=== PATIENT | male | born 1950 | race Caucasian/White ===

== ENCOUNTER 2021-10-05 08:15 | Outpatient (REF) | payer MEDICARE, MEDICAID, SELFPAY ==
[2021-10-05 08:48] LABS: MANUAL DIFF FLAG NO
[2021-10-05 10:11] LABS: Basophils Percent Auto 0.4 % (0-2); Eosinophils Absolute Auto 0.3 X10*3/uL (0.0-0.4); Eosinophils Percent Auto 6.7 % (0-4); Imm Gran Abs Auto 0.02 X10*3/uL (0.00-0.03); Imm Gran Pct Auto 0.4 % (0.0-0.4); Lymphocytes Absolute Auto 0.9 X10*3/uL (1.2-4.9); Lymphocytes Percent Auto 19.8 % (20-40); Mean Corpuscular Hemoglobin 32.5 pg (27.0-33.0); Mean Corpuscular Volume 91.6 fL (80.0-98.0); Monocytes Absolute Auto 0.4 X10*3/uL (0.1-1.2); Monocytes Percent Auto 8.5 % (2-11); Neutrophils Percent Auto 64.2 % (45-73); Platelet Count 119 X10*3/uL (160-400); Red Cell Distribution Width 12.3 % (11.0-16.0); White Blood Count 4.6 X10*3/uL (4.8-10.8)
[2021-10-05 10:30] LABS: Estimated Average Glucose 114 mg/dL; Hemoglobin A1c % 5.6 %
[2021-10-05 10:37] LABS: Albumin Level 3.7 g/dL (3.5-5.0); Alkaline Phosphatase 61 U/L (39-117); Anion Gap 9 (12-20); Bilirubin Direct 0.7 mg/dL (0.0-0.5); Bilirubin Total 2.1 mg/dL (0.0-1.0); Blood Urea Nitrogen 12 mg/dL (9-16); Calcium 8.9 mg/dL (8.4-10.2); Carbon Dioxide 31 mmol/L (22-29); Chloride 104 mmol/L (96-108); Cholesterol 134 mg/dL; Estimated Glomerular Filt Rate > 60; Glucose Fasting 123 mg/dL (60-99); HDL Cholesterol 38 mg/dL; LDL Cholesterol Calculated 75 mg/dl; Potassium 4.3 mmol/L (3.3-5.1); Sodium 140 mmol/L (135-145); Triglycerides 105 mg/dL
[2021-10-05 10:53] LABS: HBS Num1 0.61 mIU/mL (0-7.99); HBc Num1 0.06 S/CO (0.00-0.79); HBsAGNum1 0.22 S/CO (0.00-0.99); Hepatitis B Core Antibody Nonreactive (Nonreactive); Hepatitis B Surface Antigen Negative (Negative); ~HepC Num1 0.12 S/CO (0.00-0.79); ~Hepatitis B Surface Antibody NONREACTIVE (Nonreactive); ~Hepatitis C Antibody Nonreactive (Nonreactive)
[2021-10-06 03:51] LABS: Hepatitis A Antibody IgM 0.48 Index (0-0.79); ~Hepatitis A Antibody IgM Nonreactive (Nonreactive)
[2021-10-29 15:11] LABS: Hemoglobin 13.5 g/dl (14.0-18.0); Mean Corpuscular HGB Conc 35.5 g/dl (31.0-36.0); Mean Platelet Volume 10.4 fL (9.4-12.4); Red Blood Count 4.15 X10*6/uL (4.60-5.80)
[2021-10-29 15:12] LABS: Alanine Aminotransferase 18 U/L (0-40); Aspartate Amino Transferase 23 U/L (5-37); Prostate Specific Antigen Scr 0.14 ng/mL (<0.05-4.0)
== END 2021-10-05 08:16 | disposition home or self-care (01) ==
LOC: HO.LAB 08:15
PROVIDERS: PCP Nurse Practitioner Family; Visit Provider Nurse Practitioner Family
DX: I10 Essential (primary) hypertension (principal); E11.9 Type 2 diabetes mellitus without complications; K76.9 Liver disease, unspecified; E78.00 Pure hypercholesterolemia, unspecified; Z76.89 Persons encountering health services in other specified circumstances; Z12.5 Encounter for screening for malignant neoplasm of prostate
CPT/HCPCS: 36415; 80053; 80061; 80076; 82248; 83036; 84153; 85025; 86704; 86706; 86709; 86803; 87340

== ENCOUNTER 2021-11-17 14:22 | Outpatient (REF) | payer MEDICARE, MEDICAID, SELFPAY ==
[2021-11-17 15:32] LABS: Influenza A PCR NEGATIVE (Negative); Influenza B PCR NEGATIVE (Negative); Resp Syncy Virus RNA Qual PCR NEGATIVE (Negative); SARS COV2 PCR INHOUSE POSITIVE (Negative)
== END 2021-11-17 14:23 | disposition home or self-care (01) ==
LOC: HO.LNP 14:22
PROVIDERS: Visit Provider Physician Assistant
DX: Z20.822 Contact with and (suspected) exposure to COVID-19 (principal); J06.9 Acute upper respiratory infection, unspecified
CPT/HCPCS: 0241U

== ENCOUNTER 2021-11-25 08:16 | Outpatient (REF) | payer MEDICARE, MEDICAID, SELFPAY ==
--- NOTE | 2021-11-25 08:24 | ECG_ITS ---
Test Reason : R01.1 Blood Pressure : / mmHG Vent. Rate : 086 BPM Atrial Rate : 086 BPM P-R Int : 174 ms QRS Dur : 116 ms QT Int : 372 ms P-R-T Axes : 042 -48 066 degrees QTc Int : 445 ms Normal sinus rhythm Left anterior fascicular block Left ventricular hypertrophy with QRS widening ( R in aVL , Baldev product ) Abnormal ECG No previous ECGs available Referred By: Vince Lobato Electronically Signed By:David Rocha
[2021-11-25 09:09] LABS: MANUAL DIFF FLAG NO
[2021-11-25 10:03] LABS: Basophils Percent Auto 0.5 % (0-2); Eosinophils Absolute Auto 0.2 X10*3/uL (0.0-0.4); Eosinophils Percent Auto 4.3 % (0-4); Hematocrit 38.1 % (42.0-52.0); Hemoglobin 13.6 g/dl (14.0-18.0); Imm Gran Abs Auto 0.01 X10*3/uL (0.00-0.03); Imm Gran Pct Auto 0.2 % (0.0-0.4); Lymphocytes Absolute Auto 0.8 X10*3/uL (1.2-4.9); Lymphocytes Percent Auto 19.1 % (20-40); Mean Corpuscular HGB Conc 35.7 g/dl (31.0-36.0); Mean Corpuscular Hemoglobin 32.4 pg (27.0-33.0); Mean Corpuscular Volume 90.7 fL (80.0-98.0); Mean Platelet Volume 10.3 fL (9.4-12.4); Monocytes Absolute Auto 0.3 X10*3/uL (0.1-1.2); Monocytes Percent Auto 6.6 % (2-11); Neutrophils Absolute Auto 2.9 x10*3/uL (2.0-8.3); Neutrophils Percent Auto 69.3 % (45-73); Platelet Count 137 X10*3/uL (160-400); White Blood Count 4.2 X10*3/uL (4.8-10.8)
[2021-11-25 10:30] LABS: Alanine Aminotransferase 39 U/L (0-40); Albumin Level 3.2 g/dL (3.5-5.0); Alkaline Phosphatase 64 U/L (39-117); Aspartate Amino Transferase 37 U/L (5-37); Bilirubin Direct 0.7 mg/dL (0.0-0.5); Bilirubin Total 1.8 mg/dL (0.0-1.0); Gamma Glutamyl Transpeptidase 33 U/L (11-51); Total Protein 6.7 g/dL (6.5-8.0)
== END 2021-11-25 08:17 | disposition home or self-care (01) ==
LOC: HO.LAB 08:16
PROVIDERS: PCP Nurse Practitioner Family; Visit Provider Nurse Practitioner Family
DX: I10 Essential (primary) hypertension (principal); R01.1 Cardiac murmur, unspecified; I44.4 Left anterior fascicular block; D69.6 Thrombocytopenia, unspecified; K76.9 Liver disease, unspecified
CPT/HCPCS: 36415; 80076; 82977; 85025; 93005

== ENCOUNTER → 2021-12-23 08:25 | Outpatient (BNVA) | payer MEDICARE, MEDICAID, SELFPAY | PROVIDERS: PCP Nurse Practitioner Family; Referring Provider Nurse Practitioner Family; Visit Provider Internal Medicine Gastroenterology | DX: K74.60 Unspecified cirrhosis of liver (principal); D69.6 Thrombocytopenia, unspecified | CPT/HCPCS: 99202 ==

== ENCOUNTER 2022-01-05 09:39 | Outpatient (REF) | payer MEDICARE, MEDICAID, SELFPAY ==
--- NOTE | ~2022-01-05 | US_ITS ---
EXAMINATION: US ABDOMEN LIMITED CLINICAL INFORMATION: Elevated LFTs. COMPARISON: None TECHNIQUE: Real-time imaging of the right upper quadrant abdominal viscera. Technically difficult study secondary to body habitus. FINDINGS: PANCREAS: The head and body the pancreas are normal. The tail is not well visualized due to bowel gas. LIVER: The liver is not well visualized. No focal liver lesion. There is no intrahepatic biliary duct dilatation seen. GALLBLADDER: Surgically absent. COMMON BILE DUCT: Not well visualized. The visualized common bile duct normal in caliber measuring 0.5 cm in diameter. RIGHT KIDNEY: Normal. No hydronephrosis. No renal calculi or focal parenchymal lesions. The kidney measures 11.1 cm in maximum dimension. FREE FLUID: None. US/US abdomen limited IMPRESSION: Limited exam. No abnormality evident by ultrasound.
--- NOTE | 2022-01-05 10:47 | CA_ITS ---
Transthoracic Echocardiogram Patient (Last, First, Middle): Slim Caldera, Gender: Male Date of : 1950 Age: 71 Procedure Date: 01/05/2022 Procedure Type: Transthoracic Echocardiogram Location: OP Height: 162.56 cm Weight: 105.24 kg BSA: 2.08 m2 Heart Rate: 74 bpm BP: 132 / 80 mmHg Travel Attendants: SB Referring MD: Vince Lobato HEAD CUSTODIAN-Oliverio Symptoms: R01.1 - Cardiac murmur, unspecified Study Quality: Adequate with contrast ECG Rhythm: Sinus Conclusions: - The left ventricular systolic function is normal. The calculated ejection fraction is 55% by biplane method. - There is moderate aortic valve stenosis. - There is moderate mitral annular calcification. Findings Procedure Information Contrast agent, definity, is being given per protocol with complications as noted. The patient is being monitored per protocol. The patient experienced back pain from contrast. Left Ventricle Normal left ventricular cavity size. The left ventricular systolic function is normal. The calculated ejection fraction is 55% by biplane method. There is no evidence of regional wall motion abnormalities. E/E prime ratio is >15, consistent with elevated filling pressures. Evidence suggests grade I (mild) diastolic dysfunction. There is moderate septal asymmetric hypertrophy. Right Ventricle The right ventricle was not well visualized. Atria The left atrium is mildly dilated. The right atrium is normal in size. Aortic Valve There is moderate calcification of the aortic valve. There is moderate aortic valve stenosis. The mean gradient is 16 mmHg. The aortic valve area is 0.99 cm2. There is mild aortic valve regurgitation. Stroke volume index 28 cc/m2. Dimensionless index 0.33. Mitral Valve There is moderate mitral annular calcification. There is trace mitral valve regurgitation. There is no mitral valve stenosis. Pulmonic Valve The pulmonic valve is likely normal. Tricuspid Valve Normal tricuspid valve structure. There is trace tricuspid valve regurgitation. The pulmonary artery systolic pressure is normal. Great Vessels The asc aorta is normal in size. Small plaque is seen in the sino tubular ridge. Venous The inferior vena cava is normal in size and collapses greater than 50% with inspiration. Pericardium/Pleural There is no evidence of pericardial effusion. Prior Study Comparison No prior study available for comparison. Measurements 2D Linear Measurements IVSd: 1.51 0.6-0.9/0.6-1.0 cm LVIDd: 4.77 3.9-5.3/4.2-5.9 cm LVIDd Index: 2.29 2.4-3.2/2.2-3.1 cm/m2 LVIDs: 3.16 2.0-3.6 cm LVPWd: 0.89 0.7-1.1 cm LA Diam: 4.90 2.7-3.8/3.0-4.0 cm LAIDs Index: 2.36 1.5-2.3 cm/m2 LV Mass: 269.99 67-162/88-224 g LV Mass Index: 129.80 43-95/49-115 g/m2 LVOT Diam: 1.90 3.0+(-)1.3 cm 2D Systolic Function EF 4C: 50.80 >55% EF 2C: 55.80 >55% EF BiP: 54.60 >55% Mitral Valve MV VTI: 0.37 MV Pk Venkat: 1.42 MV Mn Venkat: 0.89 MV Pk Grad: 8.00 MV Mn Grad: 3.00 MV Pk E: 0.96 MV PK A: 1.36 MV Decel Time: 229.00 E/A: 0.70 E'Lateral: 3.92 E'Medial: 4.03 E/E' Med: 23.90 E/E' Lat: 24.60 PHT: 67.00 MVA PHT: 3.28 MVA Continuity: 1.62 Decel Anderson: 4.21 Aortic Valve AoV Pk Venkat: 2.71 AoV Mn Venkat: 1.88 AoV VTI: 0.61 AoV Pk Grad: 29.00 Aov Mn Grad: 16.00 NOEMI Cont.VTI: 0.99 LVOT LVOT Pk Venkat: 0.90 LVOT Mn Venkat: 0.59 LVOT VTI: 0.21 LVOT Pk Grad: 3.00 LVOT Mn Grad: 2.00 LVOT Diam: 1.90 LVOT Area: 2.84 Diastolic Function MV Pk E: 0.96 MV Pk A: 1.36 E/A: 0.70 E'Medial: 4.03 E/E' Med: 23.90 E' Laterial: 3.92 E/E' Lat: 24.60 Right Ventricle TVS' Venkat: 10.20 Tricuspid Valve TR Pk Venkat: 2.31 TR Pk Grad: 21.00 RA Press: 3.00 RVSP: 24.00 Great Vessels Aorta Sinus of Valsalva: 3.20 2.0-3.5 cm Ao Asc: 3.80 2.1-3.4 cm Pulmonary Veins Pulm Vein S/D 1.70 Pulmonary Valve PV Pk Venkat: 1.13 Peak PV Grad: 5.00 Updated in Other Vendor System with Status of Final Quan Davila MD electronically signed on 01/06/2022 12:10:04 PM with status of Final
[2022-01-05 10:53] LABS: Ammonia 30 umol/L (13-55)
[2022-01-05 11:45] LABS: INTERNATIONAL NORM RATIO 1.1 (0.9-1.1); Prothrombin Time 13.1 SEC (10.0-13.1)
[2022-01-05 12:36] LABS: Vitamin D 25-OH Total 11.5 ng/mL (>30)
[2022-01-05 13:01] LABS: Folate 10.6 ng/mL (> or = 4.0); Vitamin B12 512 pg/mL (200-900)
[2022-01-08 16:52] LABS: FIB-ALT 22 U/L (9-46); FIB-Alpha-2-Macroglobulin 271 mg/dL (106-279); FIB-Apolipoprotein A1 135 mg/dL (94-176); FIB-GGT 26 U/L (3-70); FIB-Haptoglobin 46 mg/dL (43-212); FIB-Total Bilirubin 1.6 mg/dL (0.2-1.2); Liver Fibrosis Score 0.82; Liver Fibrosis Stage F4; Nec Inflam Act Grade A0-A1; Nec Inflam Act Score 0.18
[2022-01-11 00:57] LABS: Zinc 65 mcg/dL (60-130)
== END 2022-01-05 09:40 | disposition home or self-care (01) ==
LOC: HO.US 09:39
PROVIDERS: Absent Provider Internal Medicine Gastroenterology; PCP Nurse Practitioner Family; Visit Provider Nurse Practitioner Family
DX: R79.89 Other specified abnormal findings of blood chemistry (principal); D69.6 Thrombocytopenia, unspecified; K74.60 Unspecified cirrhosis of liver; R01.1 Cardiac murmur, unspecified
CPT/HCPCS: 36415; 76705; 81596; 82140; 82306; 82607; 82746; 84630; 85610; 93306; Q9957

== ENCOUNTER → 2022-03-09 08:42 | Outpatient (BNVA) | payer OTHER, SELFPAY | PROVIDERS: PCP Nurse Practitioner Family; Referring Provider Nurse Practitioner Family; Visit Provider Internal Medicine | DX: I35.0 Nonrheumatic aortic (valve) stenosis (principal); I05.9 Rheumatic mitral valve disease, unspecified; K74.60 Unspecified cirrhosis of liver | CPT/HCPCS: 93005; 99202 ==

== ENCOUNTER 2022-03-17 09:59 | Outpatient (REF) | payer OTHER, SELFPAY ==
--- NOTE | ~2022-03-17 | CT_ITS ---
EXAMINATION: CT HEAD WITHOUT CONTRAST CLINICAL INFORMATION: Other general symptoms and signs. COMPARISON: None. TECHNIQUE: Contiguous axial imaging was performed from the skull base to vertex without intravenous administration of contrast. This CT examination was performed using dose optimization techniques as appropriate, variously including the following: *Automated exposure control *Adjustment of mA and/or kV according to patient size (this includes techniques or standardized protocols for targeted exams where dose is matched to indication/reason for exam; i.e. extremities or head) *Use of iterative reconstruction technique DLP: 669 mGy-cm. FINDINGS: There is no intracranial hemorrhage, large infarction, or mass lesion. There is no extra-axial collection. The ventricles and sulci are commensurate with mild degree of brain parenchymal volume loss noted. Minimal hypoattenuation is seen within the cerebral white matter, presumably on the basis of chronic microangiopathy. There is a chronic fracture of the right medial orbital wall. The left mastoid is underpneumatized and opacified. There is minimal paranasal sinus mucosal thickening. CT/CT head/brain wo IV con IMPRESSION: No acute intracranial abnormality. Mild brain parenchymal volume loss. Incidentally noted chronic fracture of the right medial orbital wall.
== END 2022-03-17 10:00 | disposition home or self-care (01) ==
LOC: HO.CT 09:59
PROVIDERS: Visit Provider Nurse Practitioner Family
DX: R68.89 Other general symptoms and signs (principal)
CPT/HCPCS: 70450

== ENCOUNTER 2022-05-23 08:55 | Outpatient (REF) | payer OTHER, SELFPAY ==
[2022-05-23 09:10] LABS: MANUAL DIFF FLAG NO
[2022-05-23 09:21] LABS: Basophils Percent Auto 0.7 % (0-2); Eosinophils Absolute Auto 0.3 X10*3/uL (0.0-0.4); Hematocrit 39.2 % (42.0-52.0); Imm Gran Abs Auto 0.01 X10*3/uL (0.00-0.03); Imm Gran Pct Auto 0.2 % (0.0-0.4); Lymphocytes Absolute Auto 0.9 X10*3/uL (1.2-4.9); Lymphocytes Percent Auto 18.8 % (20-40); Mean Corpuscular HGB Conc 35.7 g/dl (31.0-36.0); Mean Corpuscular Volume 89.7 fL (80.0-98.0); Mean Platelet Volume 9.3 fL (9.4-12.4); Monocytes Absolute Auto 0.4 X10*3/uL (0.1-1.2); Monocytes Percent Auto 7.7 % (2-11); Neutrophils Percent Auto 66.6 % (45-73); Platelet Count 124 X10*3/uL (160-400); Red Blood Count 4.37 X10*6/uL (4.60-5.80); White Blood Count 4.5 X10*3/uL (4.8-10.8)
[2022-05-23 09:37] LABS: Estimated Average Glucose 120 mg/dL; Hemoglobin A1c % 5.8 %
[2022-05-23 09:56] LABS: Alanine Aminotransferase 23 U/L (0-40); Albumin Level 3.8 g/dL (3.5-5.0); Alkaline Phosphatase 60 U/L (39-117); Anion Gap 9 (12-20); Aspartate Amino Transferase 25 U/L (5-37); Bilirubin Total 1.9 mg/dL (0.0-1.0); Blood Urea Nitrogen 13 mg/dL (9-16); Carbon Dioxide 30 mmol/L (22-29); Chloride 104 mmol/L (96-108); Cholesterol 139 mg/dL; Estimated Glomerular Filt Rate > 60; Glucose Random 136 mg/dL (60-115); HDL Cholesterol 39 mg/dL; LDL Cholesterol Calculated 78 mg/dl; Potassium 4.3 mmol/L (3.3-5.1); Sodium 139 mmol/L (135-145); TSH reflex Free T4 1.71 uIU/mL (0.32-4.0); Triglycerides 113 mg/dL; Vitamin D 25-OH Total 53.6 ng/mL (>30)
[2022-05-23 11:20] LABS: Creatinine Urine 164.72 mg/dL; Microalbum/Creatinine Ratio Ur 6.6 ug/mg cr
== END 2022-05-23 08:56 | disposition home or self-care (01) ==
LOC: HO.LAB 08:55
PROVIDERS: Visit Provider Nurse Practitioner Family
DX: D69.6 Thrombocytopenia, unspecified (principal); E11.9 Type 2 diabetes mellitus without complications; R79.89 Other specified abnormal findings of blood chemistry; I10 Essential (primary) hypertension
CPT/HCPCS: 36415; 80053; 80061; 82043; 82306; 83036; 84443; 85025

== ENCOUNTER → 2022-05-26 07:58 | Outpatient (BNVA) | payer OTHER, SELFPAY | PROVIDERS: PCP Nurse Practitioner Family; Referring Provider Nurse Practitioner Family; Visit Provider Internal Medicine Gastroenterology | DX: K74.60 Unspecified cirrhosis of liver (principal); R79.89 Other specified abnormal findings of blood chemistry; D69.6 Thrombocytopenia, unspecified | CPT/HCPCS: 99212 ==

== ENCOUNTER → 2022-06-02 11:57 | Outpatient (REF) | payer OTHER, SELFPAY | LOC: HO.CARD 11:57 | PROVIDERS: Visit Provider Internal Medicine | DX: I35.0 Nonrheumatic aortic (valve) stenosis (principal) | CPT/HCPCS: 93306 ==

== ENCOUNTER → 2022-06-20 10:05 | Outpatient (BNVA) | payer OTHER, SELFPAY | PROVIDERS: PCP Nurse Practitioner Family; Referring Provider Nurse Practitioner Family; Visit Provider Internal Medicine | DX: I35.0 Nonrheumatic aortic (valve) stenosis (principal); I05.9 Rheumatic mitral valve disease, unspecified; K74.60 Unspecified cirrhosis of liver | CPT/HCPCS: 99212 ==

== ENCOUNTER 2022-11-01 15:17 | Emergency (ER) | payer OTHER, SELFPAY ==
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
--- NOTE | ~2022-11-01 | CT_ITS ---
EXAMINATION: CT ABDOMEN AND PELVIS WITHOUT CONTRAST CLINICAL INFORMATION: Fall. Abdominal pain. COMPARISON: Limited abdominal ultrasound December 2021 TECHNIQUE: Multidetector volumetric imaging was performed from the superior aspect of the liver through the pubic symphysis. Sagittal and coronal reformatted images were obtained on the technologist's workstation. This CT examination was performed using dose optimization techniques as appropriate, variously including the following: *Automated exposure control *Adjustment of mA and/or kV according to patient size (this includes techniques or standardized protocols for targeted exams where dose is matched to indication/reason for exam; i.e. extremities or head) *Use of iterative reconstruction technique DLP: 1977 mGy-cm FINDINGS: LUNG BASES: See chest CT from the same day LIVER, GALLBLADDER, AND BILIARY TREE: Cirrhotic liver. No focal liver lesion. Post cholecystectomy. No biliary duct dilatation. PANCREAS: Unremarkable. SPLEEN: Upper normal size. ADRENAL GLANDS: Unremarkable. KIDNEYS AND URETERS: The kidneys are normal in size, shape, and attenuation. No hydronephrosis, hydroureter, or calculi seen. No perinephric stranding. BLADDER: Unremarkable. GASTROINTESTINAL TRACT: The small and large bowel are unremarkable. The appendix is unremarkable. Normal stomach. No ascites. No free air. ABDOMINAL WALL: No significant hernia is appreciated. LYMPH NODES: Normal. VASCULAR: Unremarkable. PELVIC VISCERA: Unremarkable. OSSEOUS STRUCTURES: Unremarkable. CT/CT abdomen pelvis wo IV con IMPRESSION: No acute findings. Cirrhosis. Fleischner guidelines were followed.
--- NOTE | ~2022-11-01 | CT_ITS ---
EXAMINATION: CT CHEST WITHOUT CONTRAST CLINICAL INFORMATION: Fall. Chest pain. Rule out rib fracture. COMPARISON: None available. TECHNIQUE: Multidetector volumetric CT imaging of the chest was done. Axial MIP volume rendering provided. Sagittal and coronal reformatted images were obtained. This CT examination was performed using dose optimization techniques as appropriate, variously including the following: *Automated exposure control *Adjustment of mA and/or kV according to patient size (this includes techniques or standardized protocols for targeted exams where dose is matched to indication/reason for exam; i.e. extremities or head) *Use of iterative reconstruction technique DLP: 1978 mGy-cm FINDINGS: CIRCULATION LIBRARIAN: LUNGS: The lungs are clear. No evidence of contusion. MEDIASTINUM: Slightly enlarged heart. Atherosclerotic disease. Aortic valve and coronary artery calcification. No pericardial effusion. Normal caliber thoracic aorta. CORONARY ARTERY CALCIFICATION: Moderate PLEURA: There is no pleural effusion. No pneumothorax. AXILLA: No lymphadenopathy. UPPER ABDOMEN: See abdominal and pelvic CT report from the same day. OSSEOUS STRUCTURES: Old healed sternal manubrial fracture. No acute fracture. Degenerative changes of the spine. CT/CT chest wo IV con IMPRESSION: No acute findings. Old healed sternal manubrial fracture. Enlarged heart and coronary artery and aortic valve calcification. Fleischner guidelines were followed.
[2022-11-01 15:39] LABS: Glucose, Whole Blood 133 mg/dL (60-115)
[2022-11-01 15:40] VITALS: BP 143/75; BP 160/60; PULSE 117; PULSE 137; RESP 18; O2SAT 96; O2SAT 97; BMI 34.3
[2022-11-01 15:48] VITALS: TEMP 36.8
[2022-11-01 16:14] VITALS: BP 137/74; PULSE 108; RESP 22; O2SAT 97
[2022-11-01 16:31] LABS: MANUAL DIFF FLAG NO
[2022-11-01 16:33] LABS: Basophils Percent Auto 0.4 % (0-2); Eosinophils Absolute Auto 0.1 X10*3/uL (0.0-0.4); Eosinophils Percent Auto 1.4 % (0-4); Imm Gran Abs Auto 0.01 X10*3/uL (0.00-0.03); Imm Gran Pct Auto 0.2 % (0.0-0.4); PLT CLUMP 1; SCAN SMEAR FLAG 1
[2022-11-01 16:35] LABS: Hematocrit 40.8 % (42.0-52.0); Hemoglobin 14.6 g/dl (14.0-18.0); Lymphocytes Absolute Auto 0.6 X10*3/uL (1.2-4.9); Lymphocytes Percent Auto 12.2 % (20-40); Mean Corpuscular HGB Conc 35.8 g/dl (31.0-36.0); Mean Corpuscular Hemoglobin 32.3 pg (27.0-33.0); Mean Corpuscular Volume 90.3 fL (80.0-98.0); Mean Platelet Volume 9.8 fL (9.4-12.4); Monocytes Absolute Auto 0.3 X10*3/uL (0.1-1.2); Monocytes Percent Auto 5.4 % (2-11); Neutrophils Percent Auto 80.4 % (45-73); Red Blood Count 4.52 X10*6/uL (4.60-5.80); Red Cell Distribution Width 11.9 % (11.0-16.0)
[2022-11-01 16:38] LABS: Platelet Count 128 X10*3/uL (160-400)
[2022-11-01 16:40] LABS: INTERNATIONAL NORM RATIO 1.1 (0.9-1.1); Prothrombin Time 12.9 SEC (10.0-13.1)
[2022-11-01 16:58] LABS: Troponin-I High Sensitivity 5.6 ng/L (<3.5-35.0)
[2022-11-01 16:59] LABS: Alanine Aminotransferase 25 U/L (0-40); Albumin Level 3.8 g/dL (3.5-5.0); Alkaline Phosphatase 67 U/L (39-117); Anion Gap 14 (12-20); Aspartate Amino Transferase 31 U/L (5-37); Blood Urea Nitrogen 17 mg/dL (9-16); Calcium 9.3 mg/dL (8.4-10.2); Carbon Dioxide 26 mmol/L (22-29); Chloride 106 mmol/L (96-108); Creatinine Clr Calc Pharmacy 79.7; Estimated Glomerular Filt Rate > 60; Glucose Random 137 mg/dL (60-115); Potassium 4.2 mmol/L (3.3-5.1); Sodium 142 mmol/L (135-145); Total Protein 7.3 g/dL (6.5-8.0)
[2022-11-01] MEDS: HYDROmorphone HCl 0.5 MG/0.5 ML SYRINGE IVPUSH (17:04)
[2022-11-01] MEDS: ondansetron HCL 4 MG/2 ML VIAL IVPUSH (17:04)
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
[2022-11-01 19:39] VITALS: BP 128/77; PULSE 110; RESP 18; O2SAT 98
[2022-11-01] MEDS: Lidocaine HCl 1 % MPF 2 ML VIAL INFILTRATI (20:08)
== END 2022-11-01 20:35 | disposition home or self-care (01) ==
PROVIDERS: Emergency Medicine Emergency Medical Services; Emergency Provider Internal Medicine; PCP Internal Medicine
DX: S01.511A Laceration without foreign body of lip, initial encounter (principal); S20.219A Contusion of unspecified front wall of thorax, initial encounter; S80.02XA Contusion of left knee, initial encounter; S80.01XA Contusion of right knee, initial encounter; W18.39XA Other fall on same level, initial encounter; Y93.89 Activity, other specified; Y92.89 Other specified places as the place of occurrence of the external cause; S60.512A Abrasion of left hand, initial encounter; S60.511A Abrasion of right hand, initial encounter; R55 Syncope and collapse
CPT/HCPCS: 12011; 36415; 70450; 70486; 71250; 72125; 74176; 80053; 82947; 84484; 85025; 85610; 85730; 93005; 96374; 96375; 99284; J1170; J2405

== ENCOUNTER 2022-11-08 12:27 | Emergency (ER) | payer OTHER, SELFPAY ==
--- NOTE | 2022-11-08 13:01 | ED_ITS ---
HPI - General Adult General Chief complaint: Wound/Laceration Stated complaint: suture removal Time Seen by Provider: 11/08/22 13:00 Source: patient and old records reviewed Mode of arrival: ambulatory Limitations: no limitations History of Present Illness HPI narrative: 72 yo Malawian speaking male with history of liver cirrhosis, HTN, DM2 who presents to the ER for evaluation of a laceration to his lower lip sustained on 11/01 requiring 6 sutures for repair. He reports scabbing and itching to the area with some ongoing pain when he touches it. No drainage or redness. MD complaint: suture removal Location: face Radiation: non-radiation Severity: mild Relieving factors: none Exacerbating factors: none Associated symptoms: denies other symptoms Treatments prior to arrival: none Related Data Previous Rx's Medication Instructions Recorded fluticasone propionate 50 2 spray intranasal DAILY PRN 11/11/21 mcg/actuation nasal allergy symptoms #16 grams spray,suspension (Flonase Allergy Relief) albuterol sulfate 90 mcg/actuation 2 puff inhalation Q6H PRN 11/17/21 aerosol inhaler shortness of breath or wheezing #6.7 grams lidocaine 4 % topical patch 1 patch topical DAILY PRN pain #30 02/23/22 (Aspercreme (lidocaine)) ea triamcinolone acetonide 0.1 % 1 appl topical DAILY 14 days #15 03/23/22 topical cream grams bacitracin zinc 500 unit/gram 1 appl topical BID #14 grams 11/01/22 topical ointment ibuprofen 600 mg tablet 600 mg PO Q6H PRN fever or pain 11/01/22 #30 tabs Allergies Allergy/AdvReac Type Severity Reaction Status Date / Time Iodinated Contrast Media Allergy Back Pain Verified 11/01/22 16:32 [Contrast Dye] perflutren [From Definity] AdvReac Intermediate Back Pain Verified 06/20/22 10:11 Review of Systems Review of Systems: Yes all other systems are reviewed and are negative PMFSH Past Medical History Medical History Gallbladder rupture Surgical History History of cholecystectomy History of surgery on extremity Family History Family History (Updated 06/20/22 @ 11:07 by Swati Moore) Father Hypertension Heart attack Mother No problems noted. Sister No problems noted. Social History Social History Housing: House Alcohol intake: never Patient Tobacco Use Status: Never used Tobacco e-Cigarette/Vaping Use: Never Used Second Hand Smoke Exposure: No Current occupational status: retired Cognitive needs: No Hearing needs: Yes Vision needs: Yes Physical Exam ED Vital Signs: Vital Signs - 24 hr 11/08/22 13:02 Temperature 98 F Pulse Rate 84 Respiratory Rate 16 Blood Pressure 145/83 H Pulse Oximetry 97 Oxygen Delivery Method Room Air BMI result Body Mass Index 0.0 Appearance: Alert. Oriented X3. No acute distress. HEENT: well healed laceration below the lower lip with scabbing, [address] wound edges well approximated CVS: Normal heart rate and rhythm. Pulses normal. Respiratory: No respiratory distress. Skin: Skin warm and dry. Normal skin color. Normal skin turgor. No rashes. Extremities: normal inspection x4 Neuro: Oriented X 3. grossly normal, nonfocal Medical Decision Making Medical Decision Making MDM Narrative: 72 yo male presenting for suture removal. wound is healing appropriately. no signs of infection. 6 sutures were removed without difficulty. wound care discussed. stable for d/c home Differential Diagnosis Differential Diagnoses: The differential diagnosis associated with the presentation includes appropriate wound healing, delayed wound healing, infected wound External Record Review External record reviewed: Outpatient record Chronic Conditions Patient?s care impacted by: Diabetes and Hypertension Discharge Plan Discharge Clinical Impression: Encounter for removal of sutures Patient Disposition: Home, Self-Care Instructions: Stitches Removal (ED) Additional Instructions: use bacitracin to the area 2 times per day Prescriptions: No Action bacitracin zinc 500 unit/gram ointment 1 appl topical BID Qty: 14 0RF ibuprofen 600 mg tablet 600 mg PO Q6H PRN (Reason: fever or pain) Qty: 30 0RF fluticasone propionate [Flonase Allergy Relief] 50 mcg/actuation spray,suspension 2 spray intranasal DAILY PRN (Reason: allergy symptoms) Qty: 16 0RF Rx Instructions: administer into each nostril lidocaine [Aspercreme (lidocaine)] 4 % adhesive patch,medicated 1 patch topical DAILY PRN (Reason: pain) Qty: 30 0RF triamcinolone acetonide 0.1 % cream 1 appl topical DAILY 14 Days Qty: 15 0RF albuterol sulfate 90 mcg/actuation HFA aerosol inhaler 2 puff inhalation Q6H PRN (Reason: shortness of breath or wheezing) Qty: 6.7 0RF
[2022-11-08 13:02] VITALS: BP 145/83; PULSE 84; RESP 16; TEMP 36.6; O2SAT 97
== END 2022-11-08 13:16 | disposition home or self-care (01) ==
PROVIDERS: Emergency Provider Emergency Medicine; PCP Internal Medicine
DX: Z48.02 Encounter for removal of sutures (principal); S01.511D Laceration without foreign body of lip, subsequent encounter; X58.XXXD Exposure to other specified factors, subsequent encounter
CPT/HCPCS: 99282

== ENCOUNTER 2023-01-10 11:42 | Emergency (ER) | payer OTHER, SELFPAY ==
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
[2023-01-10 12:02] VITALS: BP 108/86; PULSE 100; RESP 18; TEMP 36.8; O2SAT 97; BMI 41.3
--- NOTE | 2023-01-10 12:14 | PC.NURSE ---
pt taken to imaging at this time
[2023-01-10 13:16] VITALS: BP 136/66; PULSE 82; RESP 16; TEMP 36.8; O2SAT 97
== END 2023-01-10 14:22 | disposition home or self-care (01) ==
PROVIDERS: Emergency Provider Emergency Medicine
DX: S42.302A Unspecified fracture of shaft of humerus, left arm, initial encounter for closed fracture (principal); V73.6XXA Passenger on bus injured in collision with car, pick-up truck or van in traffic accident, initial encounter; E11.9 Type 2 diabetes mellitus without complications; I10 Essential (primary) hypertension; Y93.89 Activity, other specified; Y92.410 Unspecified street and highway as the place of occurrence of the external cause; Y99.9 Unspecified external cause status; Z79.899 Other long term (current) drug therapy
CPT/HCPCS: 71046; 73030; 99283; 99284

== ENCOUNTER 2023-01-16 10:24 | Outpatient (AMB) | payer OTHER, SELFPAY ==
[2023-01-16 10:24] VITALS: BP 126/80; PULSE 86; O2SAT 95; BMI 36.2
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
== END 2023-01-16 11:03 | disposition home or self-care (01) ==
PROVIDERS: Visit Provider Internal Medicine
DX: M25.512 Pain in left shoulder (principal); Z09 Encounter for follow-up examination after completed treatment for conditions other than malignant neoplasm; Z04.3 Encounter for examination and observation following other accident
CPT/HCPCS: 99214

== ENCOUNTER 2023-03-01 11:07 | Outpatient (AMB) | payer OTHER, SELFPAY ==
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
[2023-03-01 11:15] VITALS: BMI 36.2
== END 2023-03-01 11:42 | disposition home or self-care (01) ==
PROVIDERS: PCP Internal Medicine; Visit Provider Physician Assistant
DX: M19.012 Primary osteoarthritis, left shoulder (principal); M75.82 Other shoulder lesions, left shoulder
CPT/HCPCS: 99203

== ENCOUNTER → 2023-03-01 11:07 | Outpatient (BNVA) | payer OTHER, SELFPAY | PROVIDERS: PCP Internal Medicine; Visit Provider Physician Assistant ==

== ENCOUNTER 2023-04-06 09:57 | Outpatient (AMB) | payer OTHER, SELFPAY ==
[2023-04-06 10:02] VITALS: BP 116/59; PULSE 91; BMI 38.1
--- NOTE | 2023-04-06 10:02 | MHC.OFFVIS ---
Intake Vital Signs 04/06/23 10:02 Height 5 ft 4 in Weight 222 lb BMI 38.1 BP 116/59 L Blood Pressure Location Lt brachial Position Sitting Pulse 91 Intake Visit Reasons: follow up Intake Note: Patient follow up for Patient cc: abdominal pain on and off, acid reflex and BM always after eating anything. Denies any other GI issues. Environmental Aid Required: Yes Environmental Aid Name: [facility] interpeter Accompanied by: Spouse Allergies Iodinated Contrast Media [Contrast Dye] Allergy (Verified 04/06/23 10:00) Back Pain perflutren [From Definity] Adverse Reaction (Intermediate, Verified 04/06/23 10:00) Back Pain Medication List - Last Reconciled 04/06/23 by Alem Walsh MD ibuprofen 600 mg PO Q6H PRN lidocaine 4% (Aspercreme (lidocaine)) 1 patch topical DAILY PRN loratadine (Claritin) 10 mg PO DAILY PRN HPI follow up HPI Details FU GI clinic visit for this?72 Hungarian speaking male with cirrhosis, hypertension, cardiac murmur, thrombocytopenia, diabetes for FU of cirrhosis LABS IN [employer] :?Reviewed IMAGING STUDIES:??abd US on 01/05/22: LIVER: The liver is not well visualized. No focal liver lesion. There is no intrahepatic biliary duct dilatation seen. TODAY'S VISIT: [facility] Lead Esthetician, Barbara Pt is accompanied by his Gives a hx of abd pain on the sides with some distension. Intermittent constipation - takes olive oil prn Had lower extremity edema in the past and none at present. PAST VISIT: Has been feeling OK - regular but not too good Had stomach pain last month and it went away. Has a problem with his knees. Pt is accompanied by his and son, Harpreet, who interpreted for the patient Diagnosed with cirrhosis 15 to 16 yrs ago when he had GB surgery. Patient notes intermittent heartburn and denies symptoms of dysphagia, nausea, vomiting, change in appetite or weight.? Pt complains of gas and denies recent change in bowel habits, constipation, diarrhea, black stools or rectal bleeding. 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 Denies being on chronic anticoagulation. Pt is and? 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 A sister had liver problems. Mom had colon cancer - age not know to the patient. Patient denies known family history of colon polyps, colon cancer or other GI malignancies. PAST EGD/COLONOSCOPY:?Colonoscopy 4 years ago in [place] - no problems per pt. PAST GI HISTORY BY REVIEW OF MEDICAL RECORDS: Seen by PCP on 11/11/21: 3) Liver disease: ?Code(s): K76.9 - Liver disease, unspecified ?Plan: The patient was following up with Dr. Randle from [facility] ([facility]? Both patient and son is unsure on why patient had a routine 3 month follow up with GI.? Pt has been 20 years sober and used to drink 12 pack beer/day. Negative hepatitis panel.? Elevated bilirubin with normal AST/ALT.? Will proceed with an ultrasoud [facility] Medical History Adult general medical exam Elevated LFTs Encounter to establish care Forgetfulness Gallbladder rupture Liver disease Low vitamin D level Murmur, cardiac Obesity (BMI 30-39.9) Right knee pain Right orbital fracture Screening for prostate cancer Thrombocytopenia Surgical History History of surgery on extremity History of cholecystectomy Family History Father Hypertension Heart attack Mother No problems noted. Sister No problems noted. Social History Housing: House Alcohol intake: never Patient Tobacco Use Status: Never used Tobacco e-Cigarette/Vaping Use: Never Used Second Hand Smoke Exposure: No service: No Current occupational status: retired Current occupation: right hand Cognitive needs: No Hearing needs: Yes Vision needs: Yes Review of Systems Const All systems reviewed & are unremarkable except as noted in HPI and below Physical Exam Vital Signs: Last Vital Signs Pulse 91 04/06/23 10:02 BP 116/59 L 04/06/23 10:02 BMI result Body Mass Index 38.1 Const General: healthy appearing and no acute distress Nutritional Appearance: average body habitus Orientation/consciousness: patient oriented x3 Limitations: no limitations HEENT Head: Yes normal to inspection Ears: hearing grossly normal bilaterally Mouth: Normal oral and palatal mucosa present Eyes Sclerae: sclerae normal Pupils: Equal, round and reactive pupils present Neck Neck: Yes normal visual inspection Chest Chest palpation & inspection: normal inspection of the chest Resp Effort & Inspection: normal respiratory effort Auscultation: clear to auscultation bilaterally Cardio Palpation: normal PMI Rate: regular rate Rhythm: regular rhythm Heart sounds: S1 normal heart sound present, S2 normal heart sound present and Murmur heart sound present (4/6 ejection systolic murmur at LSB) GI Palpation (GI): Soft to palpation, nontender and No hepatosplenomegaly present Auscultation: normal bowel sounds Rectal Exam - Male: Yes deferred Skin General skin exam: no rashes or lesions noted Neuro General: patient oriented x3, gait normal and moves all extremities Cranial nerves: Yes Equal, round and reactive pupils present Psych Appearance: grossly normal Mental Status: mental status grossly normal Assessment & Plan Assessment & Plan (1) Cirrhosis: Code(s): K74.60 - Unspecified cirrhosis of liver Plan 72 M with cirrhosis, hypertension, cardiac murmur, thrombocytopenia, diabetes here for fu of cirrhosis. Cirrhosis is likely due to ZARAGOZA related to obesity and past ETOH abuse The patient was diagnosed with cirrhosis 15 - 16 yrs ago and was followed by Dr. Randle from [facility] ([facility]) - records were requested from the GI office Pt has been 20 years sober and used to drink 12 pack beer/day. REDUCING THE RISK OF LIVER PROGRESSION:? patient was advised to completely avoid use of alcohol and lose weight. Being obese puts him at risk of progressive steatotic liver injury and He needs to try to lose 10% of his weight. HCC SURVEILLANCE: ? the patient is at risk of developing hepatocellular carcinoma given the presence of cirrhosis and need 6 monthly imaging surveillance with either abdominal ultrasound (US) or multiphase cross-sectional imaging (CT or MRI).? Order for an MRI was placed since liver was not well visualized on abd US (Pt gives a hx of suspected contrast allergy when he received IV contrast for a CT scan in the past and refusing to have a CT scan with pre-medications for contrast allergy). MRI was ordered after his last visit, pt was called x 3 by the MRI dept to schedule and did not return calls since he is Hungarian speaking. His is requesting to call their son (Harpreet Regalado at [phone]) schedule the MRI appointment SURVEILLANCE FOR GASTROESOPHAGEAL VARICES: EGD to screen for varices if platelet count decreases to < 100. QUESTION OF LIVER TRANSPLANTATION: ? MELD score is 10. Pt does not need to be referred for Liver Transplant at present. FU in 4 months Orders: Orders MR abdomen wo/w con Today K74.60 - Unspecified cirrhosis of liver Prothrombin Time INR Today K74.60 - Unspecified cirrhosis of liver Lipid Panel with Reflex Today K74.60 - Unspecified cirrhosis of liver Hemoglobin A1c Today K74.60 - Unspecified cirrhosis of liver Complete Blood Count no Diff Today K74.60 - Unspecified cirrhosis of liver Comprehensive [place]. Panel Fast Today K74.60 - Unspecified cirrhosis of liver Coding Level of Care Code Est Pt Level 4 (72509) Diagnoses Cirrhosis K74.60 Time Spent (min) 24
== END 2023-04-06 10:49 | disposition home or self-care (01) ==
PROVIDERS: PCP Internal Medicine; Visit Provider Internal Medicine Gastroenterology
DX: K74.60 Unspecified cirrhosis of liver (principal)
CPT/HCPCS: 99214

== ENCOUNTER → 2023-04-06 09:57 | Outpatient (BNVA) | payer OTHER, SELFPAY | PROVIDERS: PCP Internal Medicine; Visit Provider Internal Medicine Gastroenterology | DX: K74.60 Unspecified cirrhosis of liver (principal) | CPT/HCPCS: 99212 ==

== ENCOUNTER 2023-04-10 14:01 | Outpatient (REF) | payer OTHER, SELFPAY ==
[2023-04-10 15:26] LABS: Hematocrit 38.8 % (42.0-52.0); Hemoglobin 14.1 g/dl (14.0-18.0); INTERNATIONAL NORM RATIO 1.1 (0.9-1.1); Mean Corpuscular HGB Conc 36.3 g/dl (31.0-36.0); Mean Corpuscular Hemoglobin 33.1 pg (27.0-33.0); Mean Corpuscular Volume 91.1 fL (80.0-98.0); Mean Platelet Volume 10.3 fL (9.4-12.4); Platelet Count 127 X10*3/uL (160-400); Prothrombin Time 13.3 SEC (11.1-13.3); Red Blood Count 4.26 X10*6/uL (4.60-5.80); Red Cell Distribution Width 11.9 % (11.0-16.0); White Blood Count 4.9 X10*3/uL (4.8-10.8)
[2023-04-10 15:33] LABS: Estimated Average Glucose 111 mg/dL; Hemoglobin A1c % 5.5 % (<6.0)
[2023-04-10 15:47] LABS: Alanine Aminotransferase 24 U/L (0-40); Albumin Level 3.9 g/dL (3.5-5.0); Alkaline Phosphatase 68 U/L (39-117); Anion Gap 14 (12-20); Aspartate Amino Transferase 28 U/L (5-37); Bilirubin Total 1.4 mg/dL (0.0-1.0); Blood Urea Nitrogen 15 mg/dL (9-16); Calcium 9.6 mg/dL (8.4-10.2); Carbon Dioxide 25 mmol/L (22-29); Chloride 106 mmol/L (96-108); Estimated Glomerular Filt Rate > 60; Glucose Fasting 121 mg/dL (60-99); Potassium 3.8 mmol/L (3.3-5.1); Sodium 141 mmol/L (135-145); Total Protein 7.7 g/dL (6.5-8.0)
[2023-04-10 15:48] LABS: Cholesterol 137 mg/dL (<200); HDL Cholesterol 35 mg/dL (>40); LDL Cholesterol Calculated 62 mg/dL (<100); Triglycerides 200 mg/dL (<150)
[2023-04-10 18:10] LABS: Reflex LDLD? No
== END 2023-04-10 14:02 | disposition home or self-care (01) ==
LOC: HO.LAB 14:01
PROVIDERS: Internal Medicine Gastroenterology; PCP Nurse Practitioner Family; Visit Provider Nurse Practitioner Family
DX: K74.60 Unspecified cirrhosis of liver (principal)
CPT/HCPCS: 36415; 80053; 80061; 83036; 85027; 85610

== ENCOUNTER 2023-04-25 11:32 | Outpatient (AMB) | payer OTHER, SELFPAY ==
--- NOTE | 2023-04-25 11:37 | AM.OFFVISNUR ---
Intake Intake Visit Reasons: Flu shot Allergies Iodinated Contrast Media [Contrast Dye] Allergy (Verified 04/06/23 10:00) Back Pain perflutren [From Definity] Adverse Reaction (Intermediate, Verified 04/06/23 10:00) Back Pain Office Procedures Flu Questionnaire Does the patient have a severe egg allergy?: No Does the patient have severe life threatening allergies?: No Does the patient have a fever or illness today?: No Has the patient ever had Guillain-Milford Syndrome?: No Has the patient ever had any past reaction to a flu shot?: No Immunizations flu vacc [id number] 6mos up(PF) 60 mcg(15 mcgx4)/0.5 mL IM syringe Performing Provider: SALMA Xie [facility] Administered by: GENE Rosas on 04/25/23 11:37 Dose Route Admin Location Dispensed Lot Number Expiration Date NDC Wrapper Layer 0.5 mL IM Left Deltoid 0.5 mL [id number] 12/10/23 [id number] [employer] VIS Given Date VIS Provided VIS Publication Date 04/25/23 Single Vaccine 21 Eligibility Eligibility Date Funding Source Not VFC Eligible 04/25/23 Private Coding Assessment & Plan Assessment & Plan Orders: Orders Influenza [id number] Immunization Today Z23 - Encounter for immunization
== END 2023-04-25 14:32 | disposition home or self-care (01) ==
LOC: HO.HMGH 11:32
PROVIDERS: PCP Nurse Practitioner Family; Visit Provider Nurse Practitioner Family
DX: Z23 Encounter for immunization (principal)
CPT/HCPCS: 90471; 90686

== ENCOUNTER 2023-04-27 15:00 | Outpatient (RCR) | payer OTHER, SELFPAY | END 2023-05-09 09:02 | disposition home or self-care (01) | LOC: HO.PT 15:00 | PROVIDERS: PCP Nurse Practitioner Family; Visit Provider Physician Assistant | DX: M19.012 Primary osteoarthritis, left shoulder (principal); M75.82 Other shoulder lesions, left shoulder | CPT/HCPCS: 97110; 97162 ==

== ENCOUNTER 2023-05-29 11:12 | Outpatient (REF) | payer OTHER, SELFPAY | END 2023-05-29 11:13 | disposition home or self-care (01) | LOC: HO.MRI 11:12 | PROVIDERS: PCP Nurse Practitioner Family; Visit Provider Internal Medicine Gastroenterology | DX: Z13.89 Encounter for screening for other disorder (principal) ==

== ENCOUNTER 2023-07-19 09:00 | Outpatient (REF) | payer MEDICARE, MEDICAID, SELFPAY ==
--- NOTE | ~2023-07-19 | US_ITS ---
EXAMINATION: US ABDOMEN LIMITED CLINICAL INFORMATION: Cirrhosis, check for ascites and HCC. COMPARISON: CT abdomen and pelvis 11/01/2022. Limited abdominal ultrasound 01/05/2022. TECHNIQUE: Real-time imaging of the right upper quadrant abdominal viscera. FINDINGS: PANCREAS: Limited. The visualized pancreatic head and body are normal in appearance. The remainder of the pancreas is obscured from visualization by the overlying bowel gas. LIVER: The liver is normal in size. The liver contour is normal. Parenchymal echogenicity is somewhat coarse. No focal hepatic lesion. There is no intrahepatic biliary duct dilatation seen. GALLBLADDER: Surgically absent. COMMON BILE DUCT: Poorly visualized due to overlapping bowel gas. RIGHT KIDNEY: Normal. No hydronephrosis. No renal calculi or focal parenchymal lesions. The kidney measures 10.2 cm in maximum dimension. FREE FLUID: None. US/US abdomen limited IMPRESSION: 1. Hepatic echotexture is somewhat coarse, consistent with the provided history of cirrhosis. No focal hepatic mass or intrahepatic ductal dilatation is seen. 2. The gallbladder surgically absent. 3. Imaging of the pancreas and common bile duct is technically limited.
== END 2023-07-19 09:01 | disposition home or self-care (01) ==
LOC: HO.US 09:00
PROVIDERS: PCP Nurse Practitioner Family; Visit Provider Internal Medicine Gastroenterology
DX: K74.60 Unspecified cirrhosis of liver (principal)
CPT/HCPCS: 76705

== ENCOUNTER 2023-09-28 10:11 | Outpatient (AMB) | payer OTHER, SELFPAY ==
--- NOTE | 2023-09-28 10:20 | A.OFFVIS_ITS ---
Intake Vital Signs 09/28/23 10:38 Height 5 ft 4 in Weight 226 lb BMI 38.8 BP 131/63 Blood Pressure Location Lt brachial Position Sitting Pulse 84 Intake Visit Reasons: 4 Month Follow UP Intake Note: Patient follow up for Cirrhosis, lab and MRI results Patient cc: abdominal pain with bloating, acid reflex, and some swallowing problems. 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 Hepatic echotexture is somewhat coars e, consistent with the provided history of cirrhosis. No focal hepatic mass or intrahepatic ductal dilatation is seen. 2. The gallbladder surgically absent. abd US on 01/05/22: LIVER: The liver is not well visualized. No focal liver lesion. There is no intrahepatic biliary duct dilatation seen. TODAY'S VISIT: Patient cc: abdominal pain with bloating, acid reflex, and some swallowing problems. 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 Intermittent constipation - takes olive oil prn Had lower extremity edema in the past and none at present. Notes itching and tingling in the scrotal area if he walks a lot - advised to discuss with his PCP Denies LE edema. PAST VISIT: Has been feeling OK - regular but not too good Had stomach pain last month and it went away. Has a problem with his knees. Pt is accompanied by his and son, Harpreet, who interpreted for the patient Diagnosed with cirrhosis 15 to 16 yrs ago when he had GB surgery. Patient notes intermittent heartburn and denies symptoms of dysphagia, nausea, vomiting, change in appetite or weight.? Pt complains of gas and denies recent change in bowel habits, constipation, diarrhea, black stools or rectal bleeding. 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 Denies being on chronic anticoagulation. 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 Mom had colon cancer - age not know to the patient. Patient denies known family history of colon polyps, colon cancer or other GI malignancies. PAST EGD/COLONOSCOPY:?Colonoscopy 4 years ago in [place] - no problems per pt. PAST GI HISTORY BY REVIEW OF MEDICAL RECORDS: Seen by PCP on 11/11/21: 3) Liver disease:?Code(s): K76.9 - Liver disease, unspecified ?Plan: The patient was following up with Dr. Randle from [facility] ([facility]? Both patient and son is unsure on why patient had a routine 3 month follow up with GI.? Pt has been 20 years sober and used to drink 12 pack beer/day. Negative hepatitis panel.? Elevated bilirubin with normal AST/ALT.? Will proceed with an ultrasoud COUNT INCLUDES THE [facility] Medical History Adult general medical exam Elevated LFTs Encounter to establish care Forgetfulness Gallbladder rupture Liver disease Low vitamin D level Murmur, cardiac Obesity (BMI 30-39.9) Right knee pain Right orbital fracture Screening for prostate cancer Thrombocytopenia Surgical History History of surgery on extremity History of cholecystectomy Family History Father Hypertension Heart attack Mother No problems noted. Sister No problems noted. Social History Housing: House Alcohol intake: never Patient Tobacco Use Status: Never used Tobacco e-Cigarette/Vaping Use: Never Used Second Hand Smoke Exposure: No service: No Current occupational status: retired Current occupation: right hand Cognitive needs: No Hearing needs: Yes Vision needs: Yes Review of Systems Const All systems reviewed & are unremarkable except as noted in HPI and below Physical Exam Vital Signs: Last Vital Signs Pulse 84 09/28/23 10:38 BP 131/63 09/28/23 10:38 BMI result Body Mass Index 38.8 Const General: healthy appearing and no acute distress Nutritional Appearance: average body habitus Orientation/consciousness: patient oriented x3 Limitations: no limitations HEENT Head: Yes normal to inspection Ears: hearing grossly normal bilaterally Mouth: Normal oral and palatal mucosa present Eyes Sclerae: sclerae normal Pupils: Equal, round and reactive pupils present Neck Neck: Yes normal visual inspection Chest Chest palpation & inspection: normal inspection of the chest Resp Effort & Inspection: normal respiratory effort Auscultation: clear to auscultation bilaterally Cardio Palpation: normal PMI Rate: regular rate Rhythm: regular rhythm Heart sounds: S1 normal heart sound present, S2 normal heart sound present and Murmur heart sound present (4/6 ejection systolic murmur at LSB) GI Palpation (GI): Soft to palpation, nontender and No hepatosplenomegaly present Auscultation: normal bowel sounds Rectal Exam - Male: Yes deferred Skin General skin exam: no rashes or lesions noted Neuro General: patient oriented x3, gait normal and moves all extremities Cranial nerves: Yes Equal, round and reactive pupils present Psych Appearance: grossly normal Mental Status: mental status grossly normal Assessment & Plan Assessment & Plan (1) Cirrhosis: Code(s): K74.60 - Unspecified cirrhosis of liver (2) Abdominal pain: Code(s): R10.9 - Unspecified abdominal pain Plan 73 year old Omani-speaking male with cirrhosis, hypertension, cardiac murmur, thrombocytopenia, diabetes here for fu of cirrhosis. Cirrhosis is likely due to ZARAGOZA related to obesity and past ETOH abuse The patient was diagnosed with cirrhosis 15 - 16 yrs ago and was followed by Dr. Randle from [facility] ([facility]) - records were requested from the GI office Pt has been sober for 20 years (he used to drink 12 pack beer/day). REDUCING THE RISK OF LIVER PROGRESSION:? patient was advised to completely avoid use of alcohol and lose weight. Being obese puts him at risk of progressive steatotic liver injury and He needs to try to lose 10% of his weight. HCC SURVEILLANCE: ? the patient is at risk of developing hepatocellular carcinoma given the presence of cirrhosis and need 6 monthly imaging surveillance with either abdominal ultrasound (US) or multiphase cross-sectional imaging (CT or MRI).? Order for an MRI was placed since liver was not well visualized on abd US (Pt gives a hx of suspected contrast allergy when he received IV contrast for a CT scan in the past and refusing to have a CT scan with pre-medications for contrast allergy). MRI was ordered after his last visit, pt was called x 3 by the MRI dept to schedule and did not return calls since he is Omani speaking. His is requesting to call their son (Harpreet Regalado at [phone]) schedule the MRI appointment SURVEILLANCE FOR GASTROESOPHAGEAL VARICES: EGD to screen for varices if platelet count decreases to < 100. QUESTION OF LIVER TRANSPLANTATION: ? MELD score is 10. Pt does not need to be referred for Liver Transplant at present. 09/28/23 Abd US results reviewed Gives a hx of abd pain on the sides with some distension, aasociated with intake of certain foods - advised a trail of famotidine. Intermittent constipation - takes olive oil prn Had lower extremity edema in the past and none at present. Notes itching and tingling in the scrotal area if he walks a lot - advised to discuss with his PCP Denies LE edema. FU in 4 month Orders: Orders Complete Blood Count Auto Diff Today K74.60 - Unspecified cirrhosis of liver Comprehensive Met. Panel Today K74.60 - Unspecified cirrhosis of liver Medications: New famotidine 20 mg PO BID 30 days 60 tabs 4RF R10.9 - Unspecified abdominal pain Coding Level of Care Code Est Pt Level 4 (82817) Diagnoses Cirrhosis K74.60 Abdominal pain R10.9 Time Spent (min) 21
[2023-09-28 10:38] VITALS: BP 131/63; PULSE 84; BMI 38.8
== END 2023-09-28 10:58 | disposition home or self-care (01) ==
PROVIDERS: PCP Nurse Practitioner Family; Visit Provider Internal Medicine Gastroenterology
DX: K74.60 Unspecified cirrhosis of liver (principal); R10.9 Unspecified abdominal pain
CPT/HCPCS: 99214

== ENCOUNTER 2023-09-28 10:11 | Outpatient (REF) | payer OTHER, SELFPAY ==
[2023-09-28 11:17] LABS: MANUAL DIFF FLAG NO
[2023-09-28 11:49] LABS: Basophils Percent Auto 0.7 % (0-2); Eosinophils Absolute Auto 0.3 X10*3/uL (0.0-0.4); Eosinophils Percent Auto 5.8 % (0-4); Hematocrit 39.2 % (42.0-52.0); Hemoglobin 13.9 g/dl (14.0-18.0); Imm Gran Abs Auto 0.01 X10*3/uL (0.00-0.03); Imm Gran Pct Auto 0.2 % (0.0-0.4); Lymphocytes Absolute Auto 0.8 X10*3/uL (1.2-4.9); Lymphocytes Percent Auto 18.4 % (20-40); Mean Corpuscular HGB Conc 35.5 g/dl (31.0-36.0); Mean Corpuscular Hemoglobin 33.2 pg (27.0-33.0); Mean Corpuscular Volume 93.6 fL (80.0-98.0); Mean Platelet Volume 10.5 fL (9.4-12.4); Monocytes Absolute Auto 0.4 X10*3/uL (0.1-1.2); Monocytes Percent Auto 8.1 % (2-11); Neutrophils Percent Auto 66.8 % (45-73); Platelet Count 127 X10*3/uL (160-400); Red Blood Count 4.19 X10*6/uL (4.60-5.80); Red Cell Distribution Width 12.4 % (11.0-16.0); White Blood Count 4.5 X10*3/uL (4.8-10.8)
[2023-09-28 12:35] LABS: Alanine Aminotransferase 20 U/L (0-40); Albumin Level 3.8 g/dL (3.5-5.0); Alkaline Phosphatase 76 U/L (39-117); Anion Gap 8 (12-20); Aspartate Amino Transferase 25 U/L (5-37); Bilirubin Total 1.6 mg/dL (0.0-1.0); Blood Urea Nitrogen 17 mg/dL (9-16); Calcium 9.3 mg/dL (8.4-10.2); Carbon Dioxide 32 mmol/L (22-29); Chloride 108 mmol/L (96-108); Estimated Glomerular Filt Rate > 60; Glucose Random 126 mg/dL (60-115); Potassium 4.2 mmol/L (3.3-5.1); Sodium 144 mmol/L (135-145); Total Protein 7.5 g/dL (6.5-8.0)
== END 2023-09-28 10:12 | disposition home or self-care (01) ==
LOC: HO.LAB 10:11
PROVIDERS: PCP Nurse Practitioner Family; Visit Provider Internal Medicine Gastroenterology
DX: K74.60 Unspecified cirrhosis of liver (principal); R10.9 Unspecified abdominal pain
CPT/HCPCS: 36415; 80053; 85025; 99212

== ENCOUNTER 2024-03-28 10:01 | Outpatient (AMB) | payer OTHER, MEDICAID, SELFPAY ==
--- NOTE | 2024-03-28 10:03 | A.OFFVIS_ITS ---
Vital Signs 03/28/24 10:04 Height 5 ft 4 in Weight 219 lb BMI 37.6 BP 118/75 Blood Pressure Location Lt brachial Position Sitting Pulse 80 Intake Visit Reasons: 6 month follow up Intake Note: Patient 6 month follow up for abdominal pain and lab results. Patient cc: constipation on and off, denies any other GI issues also complain on shoulder pain. Assistant Facility Manager Required: Yes Assistant Facility Manager Name: [facility] Accompanied by: Self / Same As Patient Allergies Iodinated Contrast Media [Contrast Dye] Allergy (Verified 03/28/24 10:03) Back Pain perflutren [From DefinAuthentic Response] Adverse Reaction (Intermediate, Verified 03/28/24 10:03) Back Pain Medication List - Last Reconciled 03/28/24 by Alem Walsh MD clotrimazole 1% 1 appl topical BID 2 weeks famotidine 20 mg PO BID 30 days fluticasone propionate 50 mcg/actuation 1 spray intranasal DAILY 30 days triamcinolone acetonide 0.5% 1 appl topical DAILY 30 days HPI HPI 6 month follow up: Details: FU GI clinic visit for this?73 Cameroonian speaking male with cirrhosis, hypertension, cardiac murmur, thrombocytopenia, diabetes for FU of cirrhosis LABS IN [employer] :?Reviewed IMAGING STUDIES:??Jul, 2023 ABD US SHOWED: 1. Hepatic echotexture is somewhat coarse, consistent with the providedhistory of cirrhosis. No focal hepatic mass or intrahepatic ductal dilatation is seen. 2. The gallbladder surgically absent. abd US on 01/05/22: LIVER: The liver is not well visualized. No focal liver lesion. There is no intrahepatic biliary duct dilatation seen. TODAY'S VISIT: Patient cc: constipation on and off, denies any other GI issues also complain on shoulder pain. Pt is accompanied by his [facility] Survey Cad Technician, Mckenzie Intermittent constipation and not on any medication reports pt is somnolent during the day Using topical cream for rash in feet and groins PAST VISIT: Abd US results reviewed Gives a hx of abd pain on the sides with some distension. Intermittent constipation - takes olive oil prn Had lower extremity edema in the past and none at present. Notes itching and tingling in the scrotal area if he walks a lot - advised to discuss with his PCP Denies LE edema. Patient cc: abdominal pain with bloating, acid reflex, and some swallowing problems. Has been feeling OK - regular but not too good Had stomach pain last month and it went away. Has a problem with his knees. Pt is accompanied by his and son, Harpreet, who interpreted for the patient Diagnosed with cirrhosis 15 to 16 yrs ago when he had GB surgery. Patient notes intermittent heartburn and denies symptoms of dysphagia, nausea, vomiting, change in appetite or weight.? Pt complains of gas and denies recent change in bowel habits, constipation, diarrhea, black stools or rectal bleeding. 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 Denies being on chronic anticoagulation. 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 Patient denies known family history of colon polyps, colon cancer or other GI malignancies. PAST EGD/COLONOSCOPY:?Colonoscopy 4 years ago in [place] - no problems per pt. PAST GI HISTORY BY REVIEW OF MEDICAL RECORDS: Seen by PCP on 11/11/21: 3) Liver disease:?Code(s):K76.9 - Liver disease, unspecified ?Plan: The patient was following up with Dr. Randle from [facility] ([facility]? Both patient and son is unsure on why patient had a routine 3 month follow up with GI.? Pt has been 20 years sober and used to drink 12 pack beer/day. Negative hepatitis panel.? Elevated bilirubin with normal AST/ALT.? [facility] Medical History Adult general medical exam Elevated LFTs Encounter to establish care Forgetfulness Gallbladder rupture Liver disease Low vitamin D level Murmur, cardiac Obesity (BMI 30-39.9) Right knee pain Right orbital fracture Screening for prostate cancer Thrombocytopenia Surgical History History of surgery on extremity History of cholecystectomy Family History Father Hypertension Heart attack Mother No problems noted. Sister No problems noted. Social History Housing: House Alcohol intake: never Patient Tobacco Use Status: Never used Tobacco e-Cigarette/Vaping Use: Never Used Second Hand Smoke Exposure: No service: No Current occupational status: retired Current occupation: right hand Cognitive needs: No Hearing needs: Yes Vision needs: Yes Review of Systems Const All systems reviewed & are unremarkable except as noted in HPI and below Physical Exam Vital Signs: Last Vital Signs Pulse 80 03/28/24 10:04 BP 118/75 03/28/24 10:04 BMI result Body Mass Index 37.6 Const General: healthy appearing and no acute distress Nutritional Appearance: average body habitus Orientation/consciousness: patient oriented x3 Limitations: no limitations HEENT Head: Yes normal to inspection Ears: hearing grossly normal bilaterally Mouth: Normal oral and palatal mucosa present Eyes Sclerae: sclerae normal Pupils: Equal, round and reactive pupils present Neck Neck: Yes normal visual inspection Chest Chest palpation & inspection: normal inspection of the chest Resp Effort & Inspection: normal respiratory effort Auscultation: clear to auscultation bilaterally Cardio Palpation: normal PMI Rate: regular rate Rhythm: regular rhythm Heart sounds: S1 normal heart sound present, S2 normal heart sound present and Murmur heart sound present (4/6 ejection systolic murmur at LSB) GI Palpation (GI): Soft to palpation, nontender and No hepatosplenomegaly present Auscultation: normal bowel sounds Rectal Exam - Male: Yes deferred Skin General skin exam: no rashes or lesions noted Neuro General: patient oriented x3, gait normal and moves all extremities Cranial nerves: Yes Equal, round and reactive pupils present Psych Appearance: grossly normal Mental Status: mental status grossly normal Assessment & Plan Assessment & Plan (1) Cirrhosis: Code(s): K74.60 - Unspecified cirrhosis of liver Category: Medical (2) Abdominal pain: Code(s): R10.9 - Unspecified abdominal pain Category: Medical Plan 73 year old Cameroonian-speaking male with cirrhosis, hypertension, cardiac murmur, thrombocytopenia, diabetes here for fu of cirrhosis. Cirrhosis is likely due to ZARAGOZA related to obesity and past ETOH abuse The patient was diagnosed with cirrhosis 15 - 16 yrs ago and was followed by Dr. Randle from [facility] ([facility]) - records were requested from the GI office Pt has been sober for 20 years (he used to drink 12 pack beer/day). REDUCING THE RISK OF LIVER PROGRESSION:? patient was advised to completely avoid use of alcohol and lose weight. Being obese puts him at risk of progressive steatotic liver injury and He needs to try to lose 10% of his weight. HCC SURVEILLANCE: ? the patient is at risk of developing hepatocellular carcinoma given the presence of cirrhosis and need 6 monthly imaging surveillance with either abdominal ultrasound (US) or multiphase cross-sectional imaging (CT or MRI).? Order for an MRI was placed since liver was not well visualized on abd US (Pt gives a hx of suspected contrast allergy when he received IV contrast for a CT scan in the past and refusing to have a CT scan with pre-medications for contrast allergy). MRI was ordered after his last visit, pt was called x 3 by the MRI dept to schedule and did not return calls since he is Cameroonian speaking. His is requesting to call their son (Harpreet Regalado at [phone]) schedule the MRI appointment SURVEILLANCE FOR GASTROESOPHAGEAL VARICES: EGD to screen for varices if platelet count decreases to < 100. QUESTION OF LIVER TRANSPLANTATION: ? MELD score is 10. Pt does not need to be referred for Liver Transplant at present. 09/28/23 Abd US results reviewed Gives a hx of abd pain on the sides with some distension, aasociated with intake of certain foods - advised a trail of famotidine. Intermittent constipation - takes olive oil prn Had lower extremity edema in the past and none at present. Notes itching and tingling in the scrotal area if he walks a lot - advised to discuss with his PCP Denies LE edema. 03/28/24 Intermittent constipation and not on any medication reports pt is somnolent during the day - ? early encephalopathy or due to obstructive sleep apnea Advised to check labs and US FU in 4 months Orders: Orders US abdomen limited Today K74.60 - Unspecified cirrhosis of liver Complete Blood Count no Diff Today K74.60 - Unspecified cirrhosis of liver Liver Panel Today K74.60 - Unspecified cirrhosis of liver Ammonia Today K74.60 - Unspecified cirrhosis of liver Prothrombin Time INR Today K74.60 - Unspecified cirrhosis of liver Coding Level of Care Code Est Pt Level 4 (71640) Diagnoses Cirrhosis K74.60 Abdominal pain R10.9 Time Spent (min) 24
[2024-03-28 10:04] VITALS: BP 118/75; PULSE 80; BMI 37.6
== END 2024-03-28 10:47 | disposition home or self-care (01) ==
PROVIDERS: PCP Nurse Practitioner Family; Visit Provider Internal Medicine Gastroenterology
DX: K74.60 Unspecified cirrhosis of liver (principal); R10.9 Unspecified abdominal pain
CPT/HCPCS: 99214

== ENCOUNTER → 2024-03-29 15:04 | Outpatient (BNVA) | payer OTHER, SELFPAY | PROVIDERS: PCP Nurse Practitioner Family; Visit Provider Internal Medicine | DX: Z23 Encounter for immunization (principal) | CPT/HCPCS: 90471; 90656 ==

== ENCOUNTER 2024-03-29 15:06 | Outpatient (AMB) | payer OTHER, SELFPAY ==
--- NOTE | 2024-03-29 15:17 | AM.OFFVISNUR ---
Intake Visit Reasons: flu shot Allergies Iodinated Contrast Media [Contrast Dye] Allergy (Verified 03/28/24 10:03) Back Pain perflutren [From Definity] Adverse Reaction (Intermediate, Verified 03/28/24 10:03) Back Pain Office Procedures Flu Questionnaire Does the patient have a severe egg allergy?: No Does the patient have severe life threatening allergies?: No Does the patient have a fever or illness today?: No Has the patient ever had Guillain-[place] Syndrome?: No Has the patient ever had any past reaction to a flu shot?: No Assessment & Plan Assessment & Plan Orders: Orders Influenza [id number] Immunization Today Z23 - Encounter for immunization Medications: New Fluarix Triv [id number] (PF) (flu vacc [id number] 6mos up(PF)) 0.5 mL IM ONCE 0.5 mL 0RF NS Z23 - Encounter for immunization
== END 2024-03-29 15:18 | disposition home or self-care (01) ==
PROVIDERS: PCP Nurse Practitioner Family; Visit Provider Internal Medicine
DX: Z23 Encounter for immunization (principal)

== ENCOUNTER 2024-04-05 07:54 | Outpatient (REF) | payer OTHER, SELFPAY ==
--- NOTE | ~2024-04-05 | US_ITS ---
EXAMINATION: US ABDOMEN LIMITED CLINICAL INFORMATION: Unspecified cirrhosis of liver. Screen for HCC. COMPARISON: Limited abdominal ultrasound 07/19/2023 and 01/05/2022. Correlated to CT abdomen and pelvis 11/01/2022. TECHNIQUE: Real-time imaging of the right upper quadrant abdominal viscera using grayscale and color Doppler technique. FINDINGS: PANCREAS: No peripancreatic fluid collections. LIVER: Liver measures 11 cm coarse echotexture. No gross solid or cystic lesion. No intrahepatic biliary ductal dilatation. Main portal vein is patent with normal hepatopedal flow direction. GALLBLADDER: Absent. COMMON BILE DUCT: Common bile duct measures 4 mm. RIGHT KIDNEY: 10 cm. No solid or cystic lesion. Normal echotexture. Normal renal cortical junction. No hydronephrosis. Normal flow on color Doppler interrogation of the renal hilum. FREE FLUID: None. US/US abdomen limited IMPRESSION: Limited examination demonstrated no gross liver lesion. Dynamic enhanced CT versus MRI are the preferable imaging modality for detecting HCC Electronically signed by: Fan Armendariz MD 04/19/2024 08:00 AM EST
== END 2024-04-05 07:55 | disposition home or self-care (01) ==
LOC: HO.US 07:54
PROVIDERS: PCP Nurse Practitioner Family; Visit Provider Internal Medicine Gastroenterology
DX: K74.60 Unspecified cirrhosis of liver (principal)
CPT/HCPCS: 76705

== ENCOUNTER → 2024-04-05 08:04 | Outpatient (BNV) | payer OTHER, SELFPAY | PROVIDERS: PCP Nurse Practitioner Family; Visit Provider Radiology Diagnostic Radiology | DX: K74.60 Unspecified cirrhosis of liver (principal) | CPT/HCPCS: 76705 ==

== ENCOUNTER 2024-04-18 16:33 | Outpatient (AMB) | payer OTHER, SELFPAY ==
[2024-04-18 16:54] VITALS: BP 118/76; BMI 37.2
--- NOTE | 2024-04-18 16:54 | MHC.PC.OV ---
Vital Signs 04/18/24 16:54 Height 5 ft 4 in Weight 217 lb BMI 37.2 BP 118/76 Blood Pressure Location Lt brachial Position Sitting Intake Visit Reasons: CRISTINA Meredith/ dm needs a1c Clinical Registered Nurse Required: No Accompanied by: Spouse Allergies Iodinated Contrast Media [Contrast Dye] Allergy (Verified 04/18/24 17:11) Back Pain perflutren [From Definity] Adverse Reaction (Intermediate, Verified 04/18/24 17:11) Back Pain Medication List - Last Reconciled 04/18/24 by Mckenzie Bravo MD clotrimazole 1% 1 appl topical BID 2 weeks famotidine 20 mg PO BID 30 days fluticasone propionate 50 mcg/actuation 1 spray intranasal DAILY 30 days triamcinolone acetonide 0.5% 1 appl topical DAILY 30 days Tobacco use date assessed: 04/18/24 Fall risk assessment: No Falls in past year Last assessed Fall Risk: 04/18/24 Dental Screening Dental Screen Date: 04/18/24 Did you have a dental visit in the last 12 months?: No Did you have a dental problem in the last 6 months where you did not have access to dental care?: No Was dental information given to patient?: Patient has dentist HPI HPI Comments History of Present Illness Details This is a 73-year-old male with diabetes mellitus 2 controlled with diet, cirrhosis and chronic GERD that comes today accompanied by for follow-up on his conditions. A1c within goal. Cirrhosis is follow by Gastroenterology. I will restart him on famotidine for his GERD. Has a systolic murmur and echocardiogram will be ordered. He is obese with a BMI of 37.2 and was advised to do diet and exercise to reach BMI goal less than 30. [facility] Medical History (Updated 04/19/24 @ 06:37 by Mckenzie Bravo MD) Adult general medical exam Screening for prostate cancer Obesity (BMI 30-39.9) Right orbital fracture Forgetfulness Right knee pain Low vitamin D level Elevated LFTs Thrombocytopenia Murmur, cardiac Liver disease Encounter to establish care Gallbladder rupture Surgical History History of surgery on extremity History of cholecystectomy Family History Father Hypertension Heart attack Mother No problems noted. Sister No problems noted. Social History (Updated 04/18/24 @ 17:18 by Mckenzie Bravo MD) Housing: House Alcohol intake: former Patient Tobacco Use Status: Never used Tobacco e-Cigarette/Vaping Use: Never Used Second Hand Smoke Exposure: No service: No Current occupational status: retired Current occupation: right hand Cognitive needs: No Hearing needs: Yes Vision needs: Yes Questionnaire Thrive Questionnaire Date Thrive assessed: 01/16/23 RUPERTO-7 AMB Questionnaire RUPERTO-7 Date RUPERTO - 7 assessed: 01/16/23 Source: Developed by Drs. Rahul Soriano, Ev Amezcua, Olvin Lyle and colleagues, with an educational damien from [employer]. Review of Systems Const All systems reviewed & are unremarkable except as noted in HPI and below Card Denies chest pain at rest, Denies chest pain with activity, Denies edema, Denies irregular heart rhythm, Denies claudication, Denies dyspnea, Denies dyspnea on exertion, Denies orthopnea, Denies paroxysmal nocturnal dyspnea and Denies slow heart rate Resp Denies cough, Denies dyspnea and Denies dyspnea on exertion Musc Denies abnormal gait, Denies atrophy, Denies deformity and Denies limited range of motion Neuro Denies abnormal gait, Denies behavioral changes and Denies lack of coordination Psych Denies behavioral changes Physical exam (Primary Care) Vital Signs: Last Vital Signs BP 118/76 04/18/24 16:54 BMI result Body Mass Index 37.2 BMI Assessment/Plan discussion: High BMI High, discussed plan: lifestyle, weight reduction, dietary and physical activity Tobacco/Smoking Status: Tobacco use Status Tobacco use date assessed 04/18/24 04/18/24 17:06 Patient Tobacco Use Status Never used Tobacco 04/18/24 17:18 e-Cigarette/Vaping Use Never Used 04/18/24 17:18 Thrive Assessment: Date of Thrive Assessment Date Thrive assessed 01/16/23 04/18/24 16:58 Const General: cooperative Resp Effort & Inspection: normal respiratory effort Auscultation: clear to auscultation bilaterally Cardio Jugular venous distension: no JVD Rate: regular rate Rhythm: regular rhythm Heart sounds: Murmur heart sound present Extrem General: Yes full ROM Office Procedures Flu Questionnaire Does the patient have a severe egg allergy?: No Results AMB Hemoglobin A1c AMB Hemoglobin A1c 6.2 % Last Edit by GENE Metcalf on 04/18/24 17:23 Immunizations Fluarix Triv [id number] (PF) 45 mcg (15 mcg x 3)/0.5 mL IM syringe Performing Provider: Mckenzie Bravo MD [place] [facility] [place] [facility] [place] [facility] Documented (not given) by: GENE Metcalf on 04/18/24 17:06 Reason Not Given: Received Previously Results Reviewed Results Reviewed: Laboratory Last Values Hgb A1c (Clinic) 6.2 % (4.0-6.0) H 04/18/24 16:53 Coding Level of Care Code Est Pt Level 4 (28405) Complex EM visit Add On G2211 Diagnoses Controlled type 2 diabetes mellitus without complication, without long-term current use of insulin E11.9 Diabetes mellitus fpc insulin use: without fpc use Diabetes mellitus complication status: without complication Cirrhosis of liver without ascites, unspecified hepatic cirrhosis type K74.60 Hepatic cirrhosis type: unspecified hepatic cirrhosis Ascites presence: without ascites Systolic murmur R01.1 Chronic GERD K21.9 Time Spent (min) 22 Assessment & Plan Assessment & Plan (1) Diabetes type 2, controlled: Code(s): E11.9 - Type 2 diabetes mellitus without complications Category: Medical Qualifiers: Diabetes mellitus fpc insulin use: without intermediate project manager use Diabetes mellitus complication status: without complication Qualified Code(s): E11.9 - Type 2 diabetes mellitus without complications Plan: Continue low-carbohydrate diet. A1c goal is equal or less than 7%. (2) Cirrhosis: Code(s): K74.60 - Unspecified cirrhosis of liver Category: Medical Qualifiers: Hepatic cirrhosis type: unspecified hepatic cirrhosis Ascites presence: without ascites Qualified Code(s): K74.60 - Unspecified cirrhosis of liver Plan: Follow-up with Gastroenterology. (3) Systolic murmur: Code(s): R01.1 - Cardiac murmur, unspecified Category: Medical Plan: Echocardiogram ordered. (4) Chronic GERD: Code(s): K21.9 - Gastro-esophageal reflux disease without esophagitis Category: Medical Plan: Continue famotidine. Orders: Orders Lipid Panel 04/18/24 E78.5 - Hyperlipidemia, unspecified Microalbumin, Random (w Creat) 04/18/24 R80.9 - Proteinuria, unspecified Comprehensive [place]. Panel Fast 04/18/24 E11.9 - Type 2 diabetes mellitus without complications CA echo transthoracic complete 04/18/24 R01.1 - Cardiac murmur, unspecified AMB Hemoglobin A1c 04/18/24 E11.9 - Type 2 diabetes mellitus without complications Influenza [id number] Immunization 04/18/24 Z23 - Encounter for immunization Medications: Refilled clotrimazole 1% 1 appl topical BID 15 grams 0RF 2 weeks triamcinolone acetonide 0.5% 1 appl topical DAILY 15 grams 0RF 30 days famotidine 20 mg PO BID 60 tabs 4RF 30 days R10.9 - Unspecified abdominal pain fluticasone propionate 50 mcg/actuation administer into each nostril 1 spray intranasal DAILY 16 grams 0RF 30 days
== END 2024-04-18 17:21 | disposition home or self-care (01) ==
LOC: HO.HMCH 16:34
PROVIDERS: PCP Nurse Practitioner Family; Visit Provider Internal Medicine
DX: E11.9 Type 2 diabetes mellitus without complications (principal); K74.60 Unspecified cirrhosis of liver; R01.1 Cardiac murmur, unspecified; K21.9 Gastro-esophageal reflux disease without esophagitis

== ENCOUNTER → 2024-04-18 16:33 | Outpatient (BNVA) | payer OTHER, SELFPAY | PROVIDERS: PCP Nurse Practitioner Family; Visit Provider Internal Medicine | DX: E11.9 Type 2 diabetes mellitus without complications (principal); K74.60 Unspecified cirrhosis of liver; R01.1 Cardiac murmur, unspecified; K21.9 Gastro-esophageal reflux disease without esophagitis | CPT/HCPCS: 83036; 90471; 99212 ==

== ENCOUNTER 2024-04-22 08:54 | Outpatient (REF) | payer OTHER, SELFPAY ==
[2024-04-22 10:28] LABS: Creatinine Urine 170.62 mg/dL; Microalbum/Creatinine Ratio Ur 4.6 ug/mg cr (<30)
[2024-04-22 10:28] LABS: Alanine Aminotransferase 24 U/L (0-40); Albumin Level 3.7 g/dL (3.5-5.0); Alkaline Phosphatase 81 U/L (39-117); Anion Gap 10 (12-20); Aspartate Amino Transferase 37 U/L (5-37); Blood Urea Nitrogen 17 mg/dL (9-16); Carbon Dioxide 29 mmol/L (22-29); Chloride 106 mmol/L (96-108); Cholesterol 131 mg/dL (<200); Estimated Glomerular Filt Rate > 60; Glucose Fasting 116 mg/dL (60-99); HDL Cholesterol 39 mg/dL (>40); LDL Cholesterol Calculated 72 mg/dL (<100); Potassium 4.5 mmol/L (3.3-5.1); Sodium 140 mmol/L (135-145); Total Protein 7.2 g/dL (6.5-8.0); Triglycerides 102 mg/dL (<150)
== END 2024-04-22 08:55 | disposition home or self-care (01) ==
LOC: HO.LAB 08:54
PROVIDERS: PCP Internal Medicine; Visit Provider Internal Medicine
DX: E11.9 Type 2 diabetes mellitus without complications (principal); E78.5 Hyperlipidemia, unspecified; R80.9 Proteinuria, unspecified
CPT/HCPCS: 36415; 80053; 80061; 82043; 82570

== ENCOUNTER → 2024-05-07 14:51 | Outpatient (REF) | payer OTHER, SELFPAY ==
--- NOTE | 2024-05-07 14:54 | CA_ITS ---
Transthoracic Echocardiogram Patient (Last, First, Middle): Slim Regalado, Gender: Male Date of : 1950 Age: 73 Procedure Date: 05/07/2024 Procedure Type: Transthoracic Echocardiogram Location: OP Height: 162.56 cm Weight: 97.98 kg BSA: 2.02 m2 Heart Rate: 94 bpm BP: 118 / 74 mmHg Wood Lathe Operator: SB Referring MD: Mckenzie Bravo MD Symptoms: R01.1 - Cardiac murmur, unspecified Study Quality: Fair/Definity not given, prior adverse reaction. ECG Rhythm: Undetermined Conclusions: - The left ventricular systolic function is normal. The visually estimated ejection fraction is between 55-60%. - There is moderate aortic valve stenosis. - There is moderate mitral annular calcification. Findings Procedure Information Contrast agent, definity, is being given per protocol without apparent complications. Left Ventricle Normal left ventricular cavity size. There is mildly increased left ventricular wall thickness. The left ventricular systolic function is normal. The visually estimated ejection fraction is between 55-60%. Diastolic function is indeterminate on the basis of available data. Right Ventricle The right ventricle was not well visualized. Atria The left atrium is moderately dilated. The right atrium is normal in size. Aortic Valve There is moderate calcification of the aortic valve. There is moderate aortic valve stenosis. The peak aortic velocity is 2.65 m/s with a calculated peak gradient of 28 mmHg. The mean gradient is 16 mmHg. The aortic valve area is 1.09 cm2. There is no aortic valve regurgitation. Dimensionless index 0.32. Mitral Valve There is moderate mitral annular calcification. There is mild mitral valve regurgitation. There is no mitral valve stenosis. Pulmonic Valve The pulmonic valve is likely normal. Tricuspid Valve There is mild tricuspid valve regurgitation. There is no evidence of pulmonary hypertension. Great Vessels The asc aorta is normal in size. Venous The inferior vena cava is normal in size and collapses greater than 50% with inspiration. Pericardium/Pleural There is a trivial pericardial effusion. Prior Study Comparison No significant change compared to prior study dated: 06/02/2022. Measurements 2D Linear Measurements IVSd: 1.57 0.6-0.9/0.6-1.0 cm LVIDd: 4.26 3.9-5.3/4.2-5.9 cm LVIDd Index: 2.11 2.4-3.2/2.2-3.1 cm/m2 LVIDs: 3.11 2.0-3.6 cm LVPWd: 1.29 0.7-1.1 cm LA Diam: 5.30 2.7-3.8/3.0-4.0 cm LAIDs Index: 2.62 1.5-2.3 cm/m2 LV Mass: 294.98 67-162/88-224 g LV Mass Index: 146.03 43-95/49-115 g/m2 LVOT Diam: 2.10 3.0+(-)1.3 cm Mitral Valve MV VTI: 0.29 MV Pk Venkat: 1.46 MV Mn Venkat: 0.96 MV Pk Grad: 9.00 MV Mn Grad: 5.00 MV Pk E: 1.47 MVA Continuity: 1.91 Aortic Valve AoV Pk Venkat: 2.65 AoV Mn Venkat: 1.86 AoV VTI: 0.51 AoV Pk Grad: 28.00 Aov Mn Grad: 16.00 NOEMI Cont.VTI: 1.09 LVOT LVOT Pk Venkat: 0.84 LVOT Mn Venkat: 0.61 LVOT VTI: 0.16 LVOT Pk Grad: 3.00 LVOT Mn Grad: 2.00 LVOT Diam: 2.10 LVOT Area: 3.46 Diastolic Function MV Pk E: 1.47 Tricuspid Valve TR Pk Venkat: 2.59 TR Pk Grad: 27.00 RA Press: 3.00 RVSP: 30.00 Great Vessels Aorta Sinus of Valsalva: 3.20 2.0-3.5 cm Ao Asc: 3.60 2.1-3.4 cm Pulmonary Valve PV Pk Venkat: 0.81 Peak PV Grad: 3.00 Updated in Other Vendor System with Status of Final Quan Davila MD electronically signed on 05/09/2024 12:10:36 PM with status of Final
== END ==
LOC: HO.CARD 14:51
PROVIDERS: PCP Internal Medicine; Visit Provider Internal Medicine
DX: R01.1 Cardiac murmur, unspecified (principal)
CPT/HCPCS: 93306

== ENCOUNTER → 2024-05-07 14:54 | Outpatient (BNV) | payer OTHER, SELFPAY | PROVIDERS: PCP Internal Medicine; Visit Provider Internal Medicine | DX: I35.0 Nonrheumatic aortic (valve) stenosis (principal); I34.0 Nonrheumatic mitral (valve) insufficiency; I36.1 Nonrheumatic tricuspid (valve) insufficiency | CPT/HCPCS: 93306 ==

== ENCOUNTER 2024-06-03 10:06 | Emergency (ER) | payer OTHER, SELFPAY ==
[2024-06-03] VITALS (7 sets, daily range): BP systolic 140–172; BP diastolic 72–83; PULSE 69–111; RESP 15–26; TEMP 36.6–36.9; O2SAT 96–97; BMI 36.8
--- NOTE | 2024-06-03 | ECG_ITS ---
Test Reason : TACHYCARDIA Blood Pressure : / mmHG Vent. Rate : 102 BPM Atrial Rate : 000 BPM P-R Int : 000 ms QRS Dur : 108 ms QT Int : 346 ms P-R-T Axes : 000 -46 052 degrees QTc Int : 450 ms Atrial fibrillation with rapid ventricular response Left anterior fascicular block Moderate voltage criteria for LVH, may be normal variant ( R in aVL , Elkins product ) Septal infarct , age undetermined Abnormal ECG When compared to the previous EKG of Afib present Referred By: Generic ED Physician Electronically Signed By:David Rocha
--- NOTE | ~2024-06-03 | US_ITS ---
EXAMINATION: US ABDOMEN LIMITED CLINICAL INFORMATION: Cirrhosis. COMPARISON: None available. TECHNIQUE: Real-time imaging of the right upper quadrant abdominal viscera. FINDINGS: PANCREAS: Not well visualized mostly obscured by bowel gas. LIVER: Heterogeneous liver texture combined with nodular surface raising suspicion for liver parenchymal disease liver cirrhosis. No ultrasound evidence of focal liver lesion. No intra or extrahepatic biliary dilatation. GALLBLADDER: The gallbladder is physiologically distended without evidence of stones, sludge, polyps, wall thickening or pericholecystic fluid. COMMON BILE DUCT: Normal in caliber measuring 0.4 cm in diameter. RIGHT KIDNEY: No hydronephrosis. No renal calculi or focal parenchymal lesions. The kidney measures 10 cm in maximum dimension. FREE FLUID: None. US/US abdomen limited IMPRESSION: * Heterogeneous liver texture with nodular surface raising suspicion for possible liver cirrhosis. * No ultrasound evidence of focal liver lesion. * Pancreas not well visualized mostly obscured by bowel gas. Electronically signed by: Aron Redding MD 06/03/2024 05:32 PM [facility]
--- NOTE | ~2024-06-03 | XR_ITS ---
EXAMINATION: XR CHEST CLINICAL INFORMATION: Cough. COMPARISON: 01/10/2023. TECHNIQUE: 2 views of the chest were obtained. FINDINGS: Previous sternomanubrial fracture better characterized on CT scan of the chest of 11/01/2022. Lung volumes are low. There is no gross pneumothorax. Surgical clips in the right upper quadrant. Degenerative changes in the thoracic spine. Heart size is normal. There is no gross pneumothorax. No significant pleural effusion. No new focal consolidation. XR/XR chest 2V IMPRESSION: No new focal consolidation. This study was presented today June 03, 2024 for interpretation. Stat results provided at this time as requested by referring provider. Electronically signed by: Pati Valencia MD 06/03/2024 12:16 PM [facility]ON
[2024-06-03 10:58] LABS: MANUAL DIFF FLAG NO
[2024-06-03 11:04] LABS: Basophils Percent Auto 0.4 % (0-2); Eosinophils Absolute Auto 0.3 X10*3/uL (0.0-0.4); Eosinophils Percent Auto 5.6 % (0-4); Hematocrit 39.2 % (42.0-52.0); Hemoglobin 14.3 g/dl (14.0-18.0); Imm Gran Abs Auto 0.01 X10*3/uL (0.00-0.03); Imm Gran Pct Auto 0.2 % (0.0-0.4); Lymphocytes Absolute Auto 0.6 X10*3/uL (1.2-4.9); Lymphocytes Percent Auto 12.4 % (20-40); Mean Corpuscular HGB Conc 36.5 g/dl (31.0-36.0); Mean Corpuscular Hemoglobin 33.8 pg (27.0-33.0); Mean Corpuscular Volume 92.7 fL (80.0-98.0); Mean Platelet Volume 10.1 fL (9.4-12.4); Monocytes Absolute Auto 0.5 X10*3/uL (0.1-1.2); Monocytes Percent Auto 9.9 % (2-11); Neutrophils Absolute Auto 3.3 x10*3/uL (2.0-8.3); Neutrophils Percent Auto 71.5 % (45-73); Platelet Count 144 X10*3/uL (160-400); Red Blood Count 4.23 X10*6/uL (4.60-5.80); Red Cell Distribution Width 12.4 % (11.0-16.0); White Blood Count 4.7 X10*3/uL (4.8-10.8)
[2024-06-03 11:09] LABS: INTERNATIONAL NORM RATIO 1.2 (0.9-1.1); Prothrombin Time 13.5 SEC (10.9-12.4)
[2024-06-03 11:21] LABS: B Type Natriuretic Peptide 118 pg/mL (<100)
[2024-06-03 11:22] LABS: Troponin-I High Sensitivity 3.1 ng/L (<3.5-35.0)
[2024-06-03 11:29] LABS: Sodium 141 mmol/L (135-145)
[2024-06-03 11:30] LABS: Alanine Aminotransferase 105 U/L (0-40); Albumin Level 3.6 g/dL (3.5-5.0); Alkaline Phosphatase 220 U/L (39-117); Anion Gap 12 (12-20); Aspartate Amino Transferase 105 U/L (5-37); Bilirubin Total 2.8 mg/dL (0.0-1.0); Blood Urea Nitrogen 16 mg/dL (9-16); Calcium 8.5 mg/dL (8.4-10.2); Carbon Dioxide 27 mmol/L (22-29); Chloride 106 mmol/L (96-108); Creatinine Clr Calc Pharmacy 81.4; Estimated Glomerular Filt Rate > 60; Glucose Random 177 mg/dL (60-115); Total Protein 7.6 g/dL (6.5-8.0)
[2024-06-03 11:38] LABS: Influenza A PCR NEGATIVE (Negative); Influenza B PCR NEGATIVE (Negative); Resp Syncy Virus RNA Qual PCR POSITIVE (Negative); SARS COV2 PCR INHOUSE NEGATIVE (Negative)
--- NOTE | 2024-06-03 14:05 | ED_ITS ---
HPI - URI/Sore Throat General Chief Complaint: Upper Respiratory Symptoms Stated Complaint: bad cough Time Seen by Provider: 06/03/24 13:58 Source: patient, RN notes reviewed and old records reviewed Mode of arrival: ambulatory History of Present Illness ED Provider: Berenice Dial PA-C [facility] Narrative: 73-year-old [place] Islander-speaking male with a past medical history thrombocytopenia, diabetes, cirrhosis, chronic GERD, obesity, presenting to the ED complaining of cough, mild SOB, and fatigue x 3 days. Denies chest pain, abdominal pain, nausea/vomiting, pedal edema, travel, sick contacts. Denies anticoagulation use or history of arrhythmia including AFib/flutter. Related Data Previous Rx's ?Medication ?Instructions ?Recorded clotrimazole 1 % topical cream 1 appl topical BID 2 weeks #15 04/18/24 grams famotidine 20 mg tablet 20 mg PO BID 30 days #60 tabs 04/18/24 fluticasone propionate 50 1 spray intranasal DAILY 30 days 04/18/24 mcg/actuation nasal #16 grams spray,suspension triamcinolone acetonide 0.5 % 1 appl topical DAILY 30 days #15 04/18/24 topical cream grams metoprolol tartrate 25 mg tablet 25 mg PO BID 30 days #60 tabs 06/03/24 Allergies Allergy/AdvReac Type Severity Reaction Status Date / Time Iodinated Contrast Media Allergy Back Pain Verified 06/03/24 10:24 [Contrast Dye] perflutren [From Definity] AdvReac Intermediate Back Pain Verified 06/03/24 10:24 Review of Systems 2 Review of Systems: Yes all other systems are reviewed and are negative Constitutional: Constitutional: Reports as per [facility] Past Medical History Attestation statement: The following information was validated with the patient. Source: old records reviewed Medical History Adult general medical exam Screening for prostate cancer Obesity (BMI 30-39.9) Right orbital fracture Forgetfulness Right knee pain Low vitamin D level Elevated LFTs Thrombocytopenia Murmur, cardiac Liver disease Encounter to establish care Gallbladder rupture Surgical History History of surgery on extremity History of cholecystectomy Family History Family History Father Hypertension Heart attack Mother No problems noted. Sister No problems noted. Social History Social History Housing: House Alcohol intake: former Patient Tobacco Use Status: Never used Tobacco Smoked in Last 30 Days: No e-Cigarette/Vaping Use: Never Used Second Hand Smoke Exposure: No Advance Directives: No Advance Directives Information Provided: Yes service: No Current occupational status: retired Current occupation: right hand Cognitive needs: No Hearing needs: Yes Vision needs: Yes Physical Exam 2 Vital Signs: Vital Signs: Last Vital Signs Temp 98.2 F 06/03/24 16:00 Pulse 69 06/03/24 16:00 Resp 23 H 06/03/24 16:00 BP 141/72 H 06/03/24 16:00 Pulse Ox 97 06/03/24 16:00 O2 Del Method Room Air 06/03/24 16:00 BMI result Body Mass Index 36.8 Const: General: cooperative, healthy appearing and no acute distress O rientation/consciousness: patient oriented x3 Limitations: no limitations HEENT: Head: Yes normal to inspection and Yes atraumatic Ears: hearing grossly normal bilaterally General nose exam: Normal external nose present Face and sinus: Yes normal facial exam Throat: Yes posterior oropharynx normal Eyes: General: appearance normal, both eyes and all related structures P upils: Equal, round and reactive pupils present EOM: EOMs intact bilaterally Neck: Neck: Yes normal visual inspection and Yes no meningeal signs Resp: Effort & Inspection: normal respiratory effort and no respiratory distress Auscultation: clear to auscultation bilaterally, no crackles, no rales and no wheezes Cardio: Rhythm: abnormal rhythm Heart sounds: S1 normal heart sound present and S2 normal heart sound present GI: Inspection: Yes normal to inspection Palpation (GI): Soft to palpation, nontender, no guarding and not rigid Skin: Rashes: no rashes Wounds: no wounds Neuro: General: patient oriented x3, tone normal and no meningeal signs C ranial nerves: Yes CN's II-XII intact bilaterally and Yes Equal, round and reactive pupils present Gait exam (Neuro): Normal gait present Extrem: General: Yes normal to inspection and Yes no pedal edema Course Course Course Narrative: --EKG showing new onset AFib with RVR > will give IV Cardizem and re-evaluate. patients CHADS-VASC = 2, anticoagulation recommended -chronic leukopenia. H&H stable. Total bilirubin chronically elevated -AST/ALT and alk phos elevated > abdomen is soft and nontender. Will obtain limited ultrasound for further eval -troponin x2 negative, mi unlikely -RSV positive XR chest 2V IMPRESSION: No new focal consolidation. This study was presented today June 03, 2024 for interpretation. Stat results provided at this time as requested by referring provider. >> cardiology consulted, Dr. Rocha, recommended Metoprolol 25 b.i.d. outpatient, and initiating anticoagulation if no hx varices or GI bleed. PLTS 144 > no appreciable history of varices or GI bleed in GI notes. Will reach out to Dr. Walsh, and Dr. Dumont who is on-call -1700--ED care transferred to [facility] pending ultrasound, GI consult recommendations, heart rate recheck and anticipated discharge Medications Administered Discontinued Medications Generic Name Dose Route Start Last Admin Trade Name Freq PRN Reason Stop Dose Admin Diltiazem HCl 15 mg 06/03/24 15:12 06/03/24 15:42 Diltiazem Hcl 50 Mg/10 Ml Vial IVPUSH 06/03/24 15:13 15 mg STAT STA Administration Medical Decision Making Medical Decision Making [facility] Narrative: 73-year-old [place]er-speaking male with a past medical history thrombocytopenia, diabetes, cirrhosis, chronic GERD, obesity, presenting to the ED complaining of cough, mild SOB, and fatigue x 3 days. On exam heart rate bouncing low 100s to 120, irregular, lungs CTA, no focal deficits in the abdomen soft/nontender, no pedal edema. Concern for viral illness vs pneumonia vs bronchitis vs arrhythmia including AFib/a flutter. Rule out CHF. Lower suspicion for ACS, PE/DVT. No hypoxia. Plan: EKG, labs, CXR, viral studies, re-evaluate Please refer to course for remaining clinical decision making, interpretation of labs/imaging results, and discussions with consultants and/or family members. Differential Diagnosis Differential Diagnoses: The differential diagnosis associated with the presentation includes As above Admission/Observation Consideration of admission/observation: Escalation of care including admission/observation considered Lab Data [facility] Lab Attestation statement: I reviewed the patient's lab results. 06/03/24 10:52 06/03/24 10:52 Labs: Lab Results 06/03/24 06/03/24 06/03/24 Range/Units 10:52 14:38 16:15 WBC 4.7 L (4.8-10.8) X10*3/uL RBC 4.23 L (4.60-5.80) X10*6/uL Hgb 14.3 (14.0-18.0) g/dl Hct 39.2 L (42.0-52.0) % MCV 92.7 (80.0-98.0) fL MCH 33.8 H (27.0-33.0) pg MCHC 36.5 H (31.0-36.0) g/dl RDW 12.4 (11.0-16.0) % Plt Count 144 L (160-400) X10*3/uL MPV 10.1 (9.4-12.4) fL Immature Gran % (Auto) 0.2 (0.0-0.4) % Neut % (Auto) 71.5 (45-73) % Lymph % (Auto) 12.4 L (20-40) % [place] % (Auto) 9.9 (2-11) % Eos % (Auto) 5.6 H (0-4) % Baso % (Auto) 0.4 (0-2) % Lymph # (Auto) 0.6 L (1.2-4.9) X10*3/uL [place] # (Auto) 0.5 (0.1-1.2) X10*3/uL Eos # (Auto) 0.3 (0.0-0.4) X10*3/uL Baso # (Auto) 0.0 (0.0-0.2) X10*3/uL Abs Immat Gran (auto) 0.01 (0.00-0.03) X10*3/uL Absolute Neuts (auto) 3.3 (2.0-8.3) x10*3/uL Absolute Nucleated RBC 0.000 (0.0-0.012) X10*3/uL Nucleated RBC % (auto) 0.0 (0.0-0.2) /100WBC PT 13.5 H (10.9-12.4) SEC INR 1.2 H (0.9-1.1) Sodium 141 (135-145) mmol/L Potassium 4.0 (3.3-5.1) mmol/L Chloride 106 (96-108) mmol/L Carbon Dioxide 27 (22-29) mmol/L Anion Gap 12 (12-20) BUN 16 (9-16) mg/dL Creatinine 0.85 (0.5-1.4) mg/dL Estim Creat Clear Calc 81.4 Estimated GFR > 60 Random Glucose 177 H (60-115) mg/dL Calcium 8.5 (8.4-10.2) mg/dL Magnesium 2.0 (1.6-2.6) mg/dL Total Bilirubin 2.8 H (0.0-1.0) mg/dL AST 105 H (5-37) U/L ALT 105 H (0-40) U/L Alkaline Phosphatase 220 H (39-117) U/L Troponin I High Sens 3.1 3.5 (<3.5-35.0) ng/L B-Natriuretic Peptide 118 H (<100) pg/mL Total Protein 7.6 (6.5-8.0) g/dL Albumin 3.6 (3.5-5.0) g/dL Lipase 17 (8-78) U/L Influenza Type A (PCR) NEGATIVE (Negative) Influenza Type B (PCR) NEGATIVE (Negative) RSV RNA Qual (PCR) POSITIVE A (Negative) SARS-CoV-2 RNA (RT-PCR) NEGATIVE (Negative) S. pyogenes GrpA SCOTT Negative (Negative) Independent Interpretation I performed an independent interpretation of an: EKG (My interpretation EKG AFib with RVR rate of 102. QTC 450. Septal infarct age indeterminate. No STEMI) Radiology Impression Discussion of test interpretation with radiology: I have reviewed the radiologist's reading. Independent Historian Clinical information obtained from an independent historian. History obtained from or confirmed by: Spouse External Record Review External record reviewed: Inpatient record, Office record, Outpatient record, Prior outpatient labs, Prior outpatient radiology, Primary care record and Outside ED record Tests considered The following testing was considered but not selected: As above Prescription Management I considered prescription management with: Other Chronic Conditions Patient?s care impacted by: Other Social Determinants Patient?s care significantly limited by Social Determinants of Health including: Other Social Determinant of Health Critical Care Time Critical Care Time Critical Care Time: Yes Total Critical Care Time: 40 Attestation: I have personally provided critical care time exclusive of time spent on separately billable procedures. Time includes review of lab data, radiology results, discussion with consultants, and monitoring for potential decompensation. Intervention performed as documented. Discharge Plan Discharge Clinical Impression: Respiratory syncytial virus (RSV), New onset atrial fibrillation, Transaminitis Patient Disposition: Still a Patient Instructions: A-fib (Atrial Fibrillation) (DC), Respiratory Syncytial Virus (ED) Additional Instructions: You have new onset AFib. Metoprolol will help control your heart rate. IT IS VERY IMPORTANT YOU FOLLOW-UP WITH CARDIOLOGY. CALL TOMORROW TO MAKE THE NEXT SOONEST APPOINTMENT You have RSV. This is a virus. This is contagious. Wear a mask, wash her hands, stay away from elderly people and children as this can be dangerous If you develop fever unresolved with medication, persistent or worsening cough, shortness of breath, chest pain, abdominal pain, bloody or black stools return to the ED immediately Prescriptions: New metoprolol tartrate 25 mg tablet 25 mg PO BID 30 Days Qty: 60 0RF No Action clotrimazole 1 % cream 1 appl topical BID 14 Days Qty: 15 0RF famotidine 20 mg tablet 20 mg PO BID 30 Days Qty: 60 4RF fluticasone propionate 50 mcg/actuation spray,suspension 1 spray intranasal DAILY 30 Days Qty: 16 0RF Rx Instructions: administer into each nostril triamcinolone acetonide 0.5 % cream 1 appl topical DAILY 30 Days Qty: 15 0RF Referrals: [facility] [Provider Group] - 1 week Mckenzie Steiner MD [Primary Care Provider] - Print Language: [place]
--- NOTE | 2024-06-03 14:15 | PC.NURSE ---
patient brought back from triage, theatre director utilized for assessment. patient states he has been feeling sob, nasal congestion and cough. patient noted to be in afib on the monitor, iv access obtained.
[2024-06-03 15:08] LABS: Lipase 17 U/L (8-78)
[2024-06-03 15:13] LABS: Troponin-I High Sensitivity 3.5 ng/L (<3.5-35.0)
[2024-06-03] MEDS: dilTIAZem HCL 50 MG/10 ML VIAL 15 MG IVPUSH (15:42)
[2024-06-03 16:35] LABS: IDNOW Serial# 58CA691E; Strep A Nucleic Acid Negative (Negative)
== END 2024-06-03 18:10 | disposition home or self-care (01) ==
PROVIDERS: Physician Assistant; Emergency Provider Emergency Medicine; PCP Internal Medicine
DX: I48.91 Unspecified atrial fibrillation (principal); R05.9 Cough, unspecified; R06.02 Shortness of breath; B97.4 Respiratory syncytial virus as the cause of diseases classified elsewhere; R74.01 Elevation of levels of liver transaminase levels; E11.9 Type 2 diabetes mellitus without complications; I10 Essential (primary) hypertension; K74.60 Unspecified cirrhosis of liver; K21.9 Gastro-esophageal reflux disease without esophagitis; Z79.899 Other long term (current) drug therapy; Z03.818 Encounter for observation for suspected exposure to other biological agents ruled out
CPT/HCPCS: 0241U; 36415; 71046; 76705; 80053; 83690; 83735; 83880; 84484; 85025; 85610; 87651; 93005; 96374; 99284; 99285

== ENCOUNTER → 2024-06-03 11:44 | Outpatient (BNV) | payer OTHER, SELFPAY | PROVIDERS: Emergency Provider Emergency Medicine; PCP Internal Medicine; Visit Provider Internal Medicine Cardiovascular Disease | DX: R94.31 Abnormal electrocardiogram [ECG] [EKG] (principal) | CPT/HCPCS: 93010 ==

== ENCOUNTER 2024-06-21 13:03 | Outpatient (AMB) | payer OTHER, SELFPAY ==
--- NOTE | 2024-06-21 13:48 | MHC.OFFVIS ---
Vital Signs 06/21/24 13:49 Height 5 ft 4 in Weight 211 lb 10.3 oz BMI 36.3 BP 118/60 Blood Pressure Location Lt brachial Position Sitting Pulse 79 Pulse Source Monitor Intake Visit Reasons: [facility] ed f/u Sign Builder Supervisor Required: Yes Sign Builder Supervisor Name: MONY [id number] Allergies Iodinated Contrast Media [Contrast Dye] Allergy (Verified 06/03/24 10:24) Back Pain perflutren [From Definity] Adverse Reaction (Intermediate, Verified 06/03/24 10:24) Back Pain Medication List - Last Reconciled 06/21/24 by Vonda Edmonds [employer]-C apixaban (Eliquis) 5 mg PO BID clotrimazole 1% 1 appl topical BID 2 weeks fluticasone propionate 50 mcg/actuation 1 spray intranasal DAILY 30 days metoprolol tartrate 25 mg PO BID 30 days triamcinolone acetonide 0.5% 1 appl topical DAILY 30 days HPI HPI [facility] ed f/u: Details: Slim is a 73-year-old male past medical history of hypertension, diabetes, aortic stenosis who was recently seen in the emergency room with cough, shortness of breath and fatigue. He tested positive for influenza A. He was also incidentally found to have atrial fibrillation with RVR. He was initially given IV Cardizem and put on metoprolol. He was started on Eliquis for anticoagulation. Today he presents for follow-up. Today he reports he has been doing well since his ER visit. He is fully recovered from his influenza A. He has not notice any heart palpitations. No chest discomfort at rest or with activity. No shortness of breath, PND, orthopnea or edema. No lightheadedness, presyncope, syncope, falls. No bleeding issues with the use of Eliquis. He has been taking his Eliquis and metoprolol once daily. is present and she states that patient snores and holds his breath at night. He has has not had testing for sleep apnea. [facility] Medical History Adult general medical exam Screening for prostate cancer Obesity (BMI 30-39.9) Right orbital fracture Forgetfulness Right knee pain Low vitamin D level Elevated LFTs Thrombocytopenia Murmur, cardiac Liver disease Encounter to establish care Gallbladder rupture Surgical History History of surgery on extremity History of cholecystectomy Family History Father Hypertension Heart attack Mother No problems noted. Sister No problems noted. Social History Housing: House Alcohol intake: former Patient Tobacco Use Status: Never used Tobacco e-Cigarette/Vaping Use: Never Used Second Hand Smoke Exposure: No service: No Current occupational status: retired Current occupation: right hand Cognitive needs: No Hearing needs: Yes Vision needs: Yes Review of Systems Const All systems reviewed & are unremarkable except as noted in HPI and below Denies weakness ENT Denies dizziness Card Denies chest pain, Denies chest pain with activity, Denies syncope, Denies rapid heart rate, Denies pedal edema, Denies edema, Denies leg edema, Denies lightheadedness, Denies palpitations, Denies dyspnea, Denies dyspnea on exertion and Denies orthopnea Resp Denies cough, Denies dyspnea and Denies dyspnea on exertion GI Denies hematochezia and Denies change in stool character Musc Denies abnormal gait, Denies muscle cramps, Denies muscle weakness, Denies numbness, Denies radiating pain into limb and Denies tingling Neuro Denies abnormal gait, Denies dizziness, Denies syncope, Denies numbness, Denies tingling and Denies weakness Endo Denies palpitations Physical Exam Vital Signs: Last Vital Signs Pulse 79 06/21/24 13:49 BP 118/60 06/21/24 13:49 BMI result Body Mass Index 36.3 Const General: cooperative, healthy appearing, comfortable and no acute distress Orientation/consciousness: patient oriented x3 Neck Neck: Yes normal visual inspection and Yes no JVD Resp Effort & Inspection: normal respiratory effort Auscultation: clear to auscultation bilaterally, no rales, no rhonchi and no wheezes Cardio Rate: regular rate Heart sounds: S1 normal heart sound present, S2 normal heart sound present, no gallops, no murmurs and no rubs Neuro General: patient oriented x3 Extrem General: Yes normal to inspection, No no pedal edema and No calf tenderness Psych Appearance: grossly normal Mental Status: mental status grossly normal Speech and movement: Normal speech and movement present Office Procedures EKG Details: Today, read by me atrial fibrillation, LAFB, rate 79, QTc 426ms, rate 17966-Dhgzshozqcxzraemt, Complete Assessment & Plan Assessment & Plan (1) Atrial fibrillation: Code(s): I48.91 - Unspecified atrial fibrillation Category: Medical Plan: New finding of atrial fibrillation when in the ER for influenza A. He had AFib RVR that was treated with Cardizem IV . He was then put on metoprolol to assist with rate control and started on Eliquis for anticoagulation. His CHADS-VASc 2. He has a history GERD and cirrhosis. There is a notation on the ER note that the provider spoke with Dr. Dumont prior to the start of anticoagulation. At this point patient has been doing well on it with no signs of bleeding. He has been taking his Eliquis and his metoprolol only once daily. Spent time reviewing the diagnosis of atrial fibrillation, stroke risk with AFib and treatment plan. EKG today is showing atrial fibrillation, rate 79, asymptomatic. Instructed to take his medications both b.i.d.. Will check a Holter monitor to assess for paroxysmal versus persistent AFib and for rate control. His reports witnessed sleep apnea and snoring. Will order a home sleep study for further evaluation. He did have a recent echocardiogram showing normal EF, left atrium moderately dilated. Cardiology follow-up in 4-6 weeks, sooner if needed. If AFib is persistent he may benefit from cardioversion. (2) Aortic valve stenosis: Code(s): I35.0 - Nonrheumatic aortic (valve) stenosis Category: Medical Plan: History of aortic stenosis previously known to be mild. Most recent echo 05/07/2024 showing EF 55-60%, moderate aortic stenosis, mean gradient 16 mmHg, aortic valve area 1.09 centimeter sq, moderate mitral annular calcification. Murmur noted on examination. Reviewed with patient. Will plan for repeat echo 1 year from last. (3) Sleep apnea: Code(s): G47.30 - Sleep apnea, unspecified Category: Medical Plan: As above (4) Essential hypertension: Code(s): I10 - Essential (primary) hypertension Category: Medical Plan: Normal at this time. He is taking metoprolol once daily. Will be having him increase to b.i.d. as previously ordered. Plan Time spent on chart review, documentation, interview assessment Orders: Orders RT home sleep study Today G47.30 - Sleep apnea, unspecified ECG 3 day holter monitor 2 Weeks I48.91 - Unspecified atrial fibrillation Complete Blood Count Auto Diff 2 Weeks I48.91 - Unspecified atrial fibrillation Comprehensive Met. Panel 2 Weeks I48.91 - Unspecified atrial fibrillation CA echo transthoracic complete 05/07/25 I35.0 - Nonrheumatic aortic (valve) stenosis Coding Level of Care Code Est Pt Level 4 (30346) Complex EM visit Add On G2211 Diagnoses Atrial fibrillation I48.91 Aortic valve stenosis I35.0 Sleep apnea G47.30 Essential hypertension I10 CPT Codes EKG - CPT: 88886-Pkzakvojsujazkzni, Complete ([id number]) Time Spent (min) 30
[2024-06-21 13:49] VITALS: BP 118/60; PULSE 79; BMI 36.3
== END 2024-06-21 15:34 | disposition home or self-care (01) ==
PROVIDERS: PCP Internal Medicine; Visit Provider Nurse Practitioner Family
DX: I48.91 Unspecified atrial fibrillation (principal); I35.0 Nonrheumatic aortic (valve) stenosis; G47.30 Sleep apnea, unspecified; I10 Essential (primary) hypertension
CPT/HCPCS: 93010; 99214; G2211

== ENCOUNTER → 2024-06-21 13:03 | Outpatient (BNVA) | payer OTHER, SELFPAY | PROVIDERS: PCP Internal Medicine; Visit Provider Nurse Practitioner Family | DX: I48.91 Unspecified atrial fibrillation (principal); I35.0 Nonrheumatic aortic (valve) stenosis; I10 Essential (primary) hypertension; G47.30 Sleep apnea, unspecified; R94.31 Abnormal electrocardiogram [ECG] [EKG]; I44.4 Left anterior fascicular block | CPT/HCPCS: 93005; 99212 ==

== ENCOUNTER 2024-07-08 10:07 | Outpatient (REF) | payer OTHER, SELFPAY ==
[2024-07-08 12:39] LABS: MANUAL DIFF FLAG NO
[2024-07-08 13:27] LABS: Basophils Percent Auto 0.7 % (0-2); Eosinophils Absolute Auto 0.1 X10*3/uL (0.0-0.4); Eosinophils Percent Auto 2.4 % (0-4); Hemoglobin 13.2 g/dl (14.0-18.0); Imm Gran Abs Auto 0.01 X10*3/uL (0.00-0.03); Imm Gran Pct Auto 0.2 % (0.0-0.4); Lymphocytes Absolute Auto 0.5 X10*3/uL (1.2-4.9); Lymphocytes Percent Auto 10.4 % (20-40); Mean Corpuscular HGB Conc 34.7 g/dl (31.0-36.0); Mean Corpuscular Hemoglobin 33.8 pg (27.0-33.0); Mean Corpuscular Volume 97.4 fL (80.0-98.0); Mean Platelet Volume 11.7 fL (9.4-12.4); Monocytes Absolute Auto 0.4 X10*3/uL (0.1-1.2); Monocytes Percent Auto 8.6 % (2-11); Neutrophils Absolute Auto 3.5 x10*3/uL (2.0-8.3); Neutrophils Percent Auto 77.7 % (45-73); Platelet Count 124 X10*3/uL (160-400); Red Cell Distribution Width 13.2 % (11.0-16.0); White Blood Count 4.5 X10*3/uL (4.8-10.8)
[2024-07-08 13:52] LABS: Alanine Aminotransferase 141 U/L (0-40); Albumin Level 3.2 g/dL (3.5-5.0); Anion Gap 12 (12-20); Aspartate Amino Transferase 174 U/L (5-37); Bilirubin Total 6.5 mg/dL (0.0-1.0); Blood Urea Nitrogen 12 mg/dL (9-16); Carbon Dioxide 23 mmol/L (22-29); Chloride 110 mmol/L (96-108); Estimated Glomerular Filt Rate > 60; Glucose Random 123 mg/dL (60-115); Sodium 141 mmol/L (135-145); Total Protein 7.6 g/dL (6.5-8.0)
[2024-07-08 14:07] LABS: Alkaline Phosphatase 393 U/L (39-117)
--- OUTSIDE RECORDS SUMMARY | 2024-07-08 17:01 | XMS_ITS | Clinical Summary ---
Author Organization [facility] Address [address] [place] [address] Care Team Providers Care Residential Care Officer Name Role Phone Unavailable Primary Care [...] to complete this topic [address] [place] [id number]
[2024-07-08 17:40] LABS: Appearance Urine Turbid; Color Urine Orange; Glucose Urine UA Negative (Negative); Leukocyte Esterase Urine Small (1+) (Negative); Nitrite Urine Positive (Negative); PH 5.5 (5.0-9.0); Specific Gravity - Urine 1.025 (1.005-1.025); UMIC TRIGGER UACC YES; Urine Blood Negative (Negative); Urine Ketones Negative (Negative); Urine Protein 30 (1+) mg/dL (Neg-Trace)
[2024-07-08 17:46] LABS: Bacteria Urine None Seen (None Seen); Calcium Oxalate Crystals Urine Present; RBC Urine 0-2 /HPF (0-2); UACC Culture Trigger YES; WBC Urine 0-5 /HPF (0-5)
== END 2024-07-08 10:08 | disposition home or self-care (01) ==
LOC: HO.LAB 10:07
PROVIDERS: PCP Internal Medicine; Referring Provider Nurse Practitioner Family
DX: R82.2 Biliuria (principal); R31.9 Hematuria, unspecified; I48.91 Unspecified atrial fibrillation; I10 Essential (primary) hypertension; R74.8 Abnormal levels of other serum enzymes
CPT/HCPCS: 36415; 80053; 81001; 81003; 85025; 87086; 96127; 99212

== ENCOUNTER 2024-07-08 10:07 | Outpatient (AMB) | payer OTHER, SELFPAY ==
[2024-07-08 10:23] VITALS: BP 130/74; PULSE 94; TEMP 36.3; O2SAT 97; BMI 36.8
--- NOTE | 2024-07-08 10:23 | A.OFFPC_ITS ---
Vital Signs 07/08/24 10:23 Height 5 ft 4 in Weight 214 lb 8 oz BMI 36.8 BP 130/74 Blood Pressure Location Lt brachial Position Sitting Pulse 94 Pulse Source Pulse Oximeter Temp 97.3 F Temp Source Oral Pulse Oximetry (%) 97 Oxygen Delivery Method Room Air Intake Visit Reasons: blood in urine Clinical Science Liaison Required: Yes Clinical Science Liaison Name: kevin Accompanied by: Spouse Allergies Iodinated Contrast Media [Contrast Dye] Allergy (Verified 07/08/24 20:16) Back Pain perflutren [From Definity] Adverse Reaction (Intermediate, Verified 07/08/24 20:16) Back Pain Medication List - Last Reconciled 07/08/24 by MAYTE Whitaker apixaban (Eliquis) 5 mg PO BID clotrimazole 1% 1 appl topical BID 2 weeks fluticasone propionate 50 mcg/actuation 1 spray intranasal DAILY 30 days metoprolol tartrate 25 mg PO BID 30 days triamcinolone acetonide 0.5% 1 appl topical DAILY 30 days Tobacco use date assessed: 07/08/24 Fall risk assessment: No Falls in past year Last assessed Fall Risk: 07/08/24 Dental Screening Dental Screen Date: 07/08/24 Did you have a dental visit in the last 12 months?: No Did you have a dental problem in the last 6 months where you did not have access to dental care?: No Was dental information given to patient?: No HPI blood in urine HPI Details The patient is 74 y/o male with significant past medical history of Afib on apixaban, Aortic valve stenosis, chronic GERD, systolic murmur, cirrhosis, DM2, Essential hypertension Patient of Dr. Correa, he was last seen on 04/18/24 in office The patient is presenting with concerns of hematuria The reports that a month ago he was sick with the flu and went to the ED There they found that he had an irregular heart rhythm He was started on apixaban and metoprolol Reports that he started blooding when he urinate 4 days ago He stopped taking the metoprolol and apixaban for 2 days now. The patient was refusing take the medication again because of the fear of bleeding again. Convinced the patient to take a smaller dose of the apixaban, but reaching out to cardiology, it explained the the 2.5 mg apixaban is not enough to prevent strokes The patient was called back and reinforced and he decided to go back on the apixaban 5 mg BID. The patient showed bilirubin in the urine instead of blood The patient liver enzymes are trending up and abdominal US was ordered and a Hepatitis panel [facility] Medical History Adult general medical exam Screening for prostate cancer Obesity (BMI 30-39.9) Right orbital fracture Forgetfulness Right knee pain Low vitamin D level Elevated LFTs Thrombocytopenia Murmur, cardiac Liver disease Encounter to establish care Gallbladder rupture Surgical History History of surgery on extremity History of cholecystectomy Family History Father Hypertension Heart attack Mother No problems noted. Sister No problems noted. Social History Housing: House Alcohol intake: former Patient Tobacco Use Status: Never used Tobacco e-Cigarette/Vaping Use: Never Used Second Hand Smoke Exposure: No service: No Current occupational status: retired Current occupation: right hand Cognitive needs: No Hearing needs: Yes Vision needs: Yes Questionnaire PHQ-9 Over the last 2 weeks, how often have you been bothered by any of the following problems? 1. Little interest or pleasure in doing things: several days 2. Feeling down, depressed, or hopeless: several days 3. Trouble falling or staying asleep, or sleeping too much: not at all 4. Feeling tired or having little energy: not at all 5. Poor appetite or overeating: not at all 6. Feeling bad about yourself - or that you are a failure or have let yourself or your family down: not at all 7. Trouble concentrating on things, such as reading the newspaper or watching television: not at all 8. Moving or speaking so slowly that other people could have noticed. Or the opposite - being so fidgety or restless that you have been moving around a lot more than usual: not at all 9. Thoughts that you would be better off or of hurting yourself in some way: not at all Total score: 2 Depression Screening Interpretation: Negative Depression Screening Done: Yes 61035 - PHQ-9 Billing: Yes Source: Developed by Drs. Rahul Soriano, Ev Amezcua, Olvin Lyle and colleagues, with an educational damien from [employer]. Thrive Questionnaire Date Thrive assessed: 07/08/24 I am a: Patient What is your living situation today?: I have a steady place to live Within the past 12 months, did the food you bought not last and you didn't have the money to get more?: Never true Within the past 12 months, did you worry whether your food would run out before you got money to buy more?: Never true Do you have trouble paying for medicines?: No Do you have trouble getting transportation to medical appointments?: No Do you have trouble paying your heating and electricity bill?: No Do you have trouble taking care of your child, family member or friend?: No Do you have trouble with day-to-day activities such as bathing, preparing meals, shopping, managing finances, etc.?: No Are you currently unemployed and looking for a job?: No Are you interested in more education?: No Please select the resources that you would like help with: None Currently or been in a relationship where the following occur: No concerns reported THRIVE Score: 0 AUDIT C Alcohol Use Questionnaire (AUDIT-C) 1. How often do you have a drink containing alcohol?: Never 3. How often do you have six or more drinks on one occasion?: Never Total Score: 0 Score Reviewed/Action Taken: No RUPERTO-7 AMB Questionnaire RUPERTO-7 Date RUPERTO - 7 assessed: 07/08/24 Feeling nervous, anxious, or on edge: 0 = Not at all Not being able to stop or control worryin = Not at all Worrying too much about different things: 0 = Not at all Trouble relaxin = Not at all Being so restless that it is hard to sit still: 0 = Not at all Becoming easily annoyed or irritable: 0 = Not at all Feeling afraid as if something awful might happen: 0 = Not at all Total RUPERTO-7 score (0-4 normal; 5-9 mild; 10-14 moderate; 15-21 severe): 0 Source: Developed by Ev Bernstein Kurt Kroenke and colleagues, with an educational damien from [employer]. RUPERTO-7 Assessment Billing RUPERTO-7 Assessment Tool: RUPERTO-7 Assessment 99871 Review of Systems Const Details: Denies chills, Denies fatigue, Denies fever(s), Denies headache(s) and Denies weakness HEENT Denies change in vision, Denies dizziness, Denies headache(s), Denies hearing loss, Denies nasal congestion, Denies sinus pain, Denies sinus pressure and Denies sore throat Card Denies chest pain, Denies lightheadedness, Denies dyspnea and Denies other (palpitations) Resp Denies cough, Denies dyspnea and Denies wheezing GI Denies abdominal pain, Denies melena, Denies hematochezia, Denies change in bowel habits, recurrent dyspepsia and Denies nausea reports hematuria and Denies dysuria Musc Denies abnormal gait, Denies myalgias, Denies arthralgias, Denies numbness and Denies tingling Skin/Breast Denies rash, Denies unusual bruising and Denies wounds Neuro Denies abnormal gait, Denies dizziness, Denies headache(s), Denies memory loss, Denies numbness, Denies Sensory deficit (Neuro), Denies tingling and Denies weakness Psych Denies anxiety, Denies depression and Denies memory loss Endo Denies cold intolerance, Denies fatigue, Denies heat intolerance, Denies polydipsia and Denies polyuria Jose De Jesus/Lymph Denies easy bleeding and Denies easy bruising Aller/Immun Denies wheezing Physical exam (Primary Care) Vital Signs: Last Vital Signs Temp 97.3 F 07/08/24 10:23 Pulse 94 07/08/24 10:23 BP 130/74 07/08/24 10:23 Pulse Ox 97 07/08/24 10:23 Oxygen Delivery Method Room Air 07/08/24 10:23 BMI result Body Mass Index 36.8 Tobacco/Smoking Status: Tobacco use Status Tobacco use date assessed 07/08/24 07/08/24 10:27 Patient Tobacco Use Status Never used Tobacco 07/08/24 10:27 e-Cigarette/Vaping Use Never Used 07/08/24 10:27 PHQ-9: PHQ-9 Score PHQ-9: Total score 2 07/08/24 20:21 Depression Screening Interpretation: Negative Thrive Assessment: Date of Thrive Assessment Date Thrive assessed 07/08/24 07/08/24 10:27 Currently or been in a relationship where the following occur: No concerns reported Const Other: General: no acute distress, well developed, alert and awake Nutritional Appearance: well nourished Orientation/consciousness: patient oriented x3 [facility] Head: Yes normocephalic and Yes atraumatic Ears: hearing grossly normal bilaterally and TM's normal bilaterally General nose exam: Normal external nose present and Normal nares present Eyes Pupils: Equal, round and reactive pupils present and Pupil accommodation reflex normal EOM: EOMs intact bilaterally Neck Neck: Yes normal visual inspection, Yes trachea midline Thyroid: Thyroid normal Lymphatic: no lymphadenopathy noted Chest Chest palpation & inspection: normal inspection of the chest Resp Effort & Inspection: normal respiratory effort Auscultation: clear to auscultation bilaterally Cardio Rate: irregular Rhythm: irregular Heart sounds: S1 normal heart sound present, S2 normal heart sound present, no gallops, no murmurs and no rubs GI Palpation (GI): Abdomen large, protuberant, soft and nontender to palpation Auscultation: normal bowel sounds General: Yes no CVA tenderness Back/Spine/Pelvis Back: no CVA tenderness Cervical Spine: cervical ROM normal and No Cervical spine tenderness Thoracic/Lumbar Spine: thoraco-lumbar ROM normal, No pain with thoraco-lumbar ROM, No thoracic spinal tenderness and No lumbar spinal tenderness Skin General: warm and dry. Normal skin color. Normal skin turgor Lesions: no lesions Rashes: no rashes Trauma: no lacerations or abrasions Wounds: no wounds Nails: normal Neuro General: patient oriented x3, gait normal Cranial nerves: Yes Equal, round and reactive pupils present Cognition (Neuro): normal cognition Gait exam (Neuro): Normal gait present Extrem General: Yes normal to inspection, No edema and No calf tenderness Psych Appearance: grossly normal Affect: normal affect Attitude: cooperative Thought process: Normal thought process present Results AMB Urinalysis, Automated UA Leukoctes 1 Sheng/uL Last Edit by GENE Boo on 07/08/24 11:28 UA Nitrite Positive Last Edit by GENE Boo on 07/08/24 11:28 UA Urobilinogen 1 mg/dL Last Edit by GENE Boo on 07/08/24 11: 28 UA Protein 1 mg/dL Last Edit by Rivera Cheney A on 07/08/24 11:28 UA pH 5.5 Last Edit by Rivera Cheney A on 07/08/24 11:28 UA Blood 0 Jacob/uL Last Edit by Rivera Cheney A on 07/08/24 11:28 UA Specific [place] 1.030 Last Edit by Rivera Cheney A on 07/08/24 11:28 UA Ketone Positive Last Edit by Rivera Cheney A on 07/08/24 11:28 UA Bilirubin 2 mg/dL Last Edit by Rivera Cheney A on 07/08/24 11:28 UA Glucose 0 mg/dL Last Edit by Rivera Cheney A on 07/08/24 11:28 Results Reviewed Results Reviewed: Laboratory Last Values Urine pH (Auto) 5.5 07/08/24 11:26 Specific [place] (Auto) 1.030 07/08/24 11:26 Urine Protein (Auto) 1 mg/dL 07/08/24 11:26 Glucose (UA)(Auto) 0 mg/dL 07/08/24 11:26 Urine Ketones (Auto) Positive 07/08/24 11:26 Urine Blood (Auto) 0 Jacob/uL 07/08/24 11:26 Urine Nitrite (Auto) Positive 07/08/24 11:26 Urine Bilirubin (Auto) 2 mg/dL 07/08/24 11:26 Urine Urobilinogen (Auto) 1 mg/dL 07/08/24 11:26 Leukocyte Esterase (Auto) 1 Sheng/uL 07/08/24 11:26 Coding Level of Care Code Est Pt Level 4 (56082) Diagnoses Bilirubin in urine R82.2 Hematuria, unspecified type R31.9 Hematuria type: unspecified type Atrial fibrillation, unspecified type I48.91 Atrial fibrillation type: unspecified Essential hypertension I10 Elevated liver enzymes R74.8 Additional Codes RUPERTO-7 Assessment Billing - RUPERTO-7 Assessment Tool: RUPERTO-7 Assessment 62529 ([id number]) PHQ-9 - 83955 - PHQ-9 Billing: Yes ([id number]) Time Spent (min) 45 Assessment & Plan Assessment & Plan (1) Bilirubin in urine: Code(s): R82.2 - Biliuria Category: Medical Plan: Urinalysis done in office, showing + bilirubin in urine, urine appears dark/orange abdomen US ordered (2) Hematuria: Code(s): R31.9 - Hematuria, unspecified Category: Medical Qualifiers: Hematuria type: unspecified type Qualified Code(s): R31.9 - Hematuria, unspecified Plan: The patient stopped taking apixaban 5mg bid due to his concern of hematuria Urine dipped in office-negative for blood originally convinced the patient take a lesser dose of apixaban. After reaching out to cardiology and was informed that apixaban 2.5 mg is not sufficient to prevent strokes. The patient was called back convinced to resume his apixaban 5 mg BID. (3) Atrial fibrillation: Code(s): I48.91 - Unspecified atrial fibrillation Category: Medical Qualifiers: Atrial fibrillation type: unspecified Qualified Code(s): I48.91 - Unspecified atrial fibrillation Plan: The patient stopped taking apixaban 5 mg bid and metoprolol 25 mg bid for 2 days The patient was concern about hematuria The gave a urine sample in office and he was convinced that the urine as blood in it when urinalysis done, it showed no blood but it was positive for bilirubin ---reinforced to the patient the risk of not taking apixaban like having a stroke The patient was also educated that his metoprolol as nothing to do with his potential hematuria The patient verbalized that he will start taking the medications again (4) Essential hypertension: Code(s): I10 - Essential (primary) hypertension Category: Medical Plan: reinforced low sodium diet Instructed the patient to continue metoprolol 25 mg bid follow up with cardiology as scheduled (5) Elevated liver enzymes: Code(s): R74.8 - Abnormal levels of other serum enzymes Category: Medical Plan: The patient liver enzymes were noted to be trending up Hepatitis panel ordered Orders: Orders UA CC w/rflx Micro + Cult 07/08/24 R31.9 - Hematuria, unspecified US abdomen complete 07/08/24 R82.2 - Biliuria AMB Urinalysis Automated 07/08/24 Z13.9 - Encounter for screening, unspecified Medications: Refilled apixaban (Eliquis) 5 mg PO BID 60 tabs 0RF
--- OUTSIDE RECORDS SUMMARY | 2024-07-08 14:42 | XMS_ITS | Clinical Summary ---
Author Organization [facility] Address [address] [place] [address] Care Team Providers Care Psychological Operations Officer Name Role Phone Unavailable Primary Care Provider Unavailabl e Allergies No known active allergies Social History Tobacco Use Types Packs/Day Years Used Date Smoking Tobacco: Never Assessed Sex and Gender Information Value Date Recorded Sex Assigned at Not on file Gender Identity Not on file Sexual Orientation Not on file Last Filed Vital Signs Vital Sign Reading Time Taken Comments Blood Pressure 112/60 04/08/2021 1:32 PM EDT Pulse 89 04/08/2021 1:32 PM EDT Temperature 36.7 ??C (98.1 ??F) 04/08/2021 1:32 PM ED T Respiratory Rate 18 04/08/2021 1:32 PM EDT Oxygen Saturation 93% 04/08/2021 1:32 PM EDT Inhaled Oxygen Concentration - - Weight - - Height - - Body Mass Index - - Plan of Treatment Health Maintenance Due Date Last Done Comments Hepatitis C Virus Screening 1950 DTaP/Tdap/Td Vaccines (1 - Tdap) 1969 Colonoscopy 1995 Pneumococcal Vaccines 50+ (1 of 1 - PCV) 2000 Zoster (Shingles) Vaccine (1 of 2) 2000 Influenza Vaccine 01/11/2024 COVID-19 Vaccine ( - 2023-2 5 season) 2024 RSV Vaccine 60 years and old er and Patients (1 - 1-dose 75+ series) 2025 Hepatitis B Vaccines Aged Out No long er eligible based on patient's age to complete this topic 42 [address] [place] [id number]
--- OUTSIDE RECORDS SUMMARY | 2024-07-08 14:42 | XMS_ITS | Patient Health Record ---
Author Organization [facility] Address [address], [place] [id number] Care Team Providers Care Animal Breeder Name Role Phone Ana Rosa Olivares Primary Care Provider Ollie Jane Unavailable [phone] Allergies No Known Allergies Reason For Referral No Information Medications Medication SIG (Take, Route, Frequency, Duration) Notes Start Date End Date Status Clotrimazole-Betamethasone 1-0.05 % 1 application Externally Twice a day Active Problems Problem Type SNOMED Code ICD Code Onset Dates Problem Status W/U Status Risk Notes Problem Benign neoplasm of colon (52400046) Benign neoplasm of colon, unspecified (D12.6) Active confirmed migrated_ 5459311 Problem Acute alcoholic liver disease (6828185) Alcoholic hepatitis without ascites (K70.10) Active confirmed migrated_ 3580845 Problem Alcoholic cirrhosis (252563495) Alcoholic cirrhosis of liver without ascites (K70.30) Active confirmed migrated_ 0230179 Problem Chronic hepatic failure (863014985) Chronic hepatic failure without coma (K72.10) Active confirmed migrated_ 4671151 Problem Chest pain (25881163) Chest pain, unspecified (R07.9) Active confirmed migrated_ 9305694 Problem History of polyp of colon (458194641) Personal history of colonic polyps (Z86.010) Active confirmed migrated_ 5728066 Plan Of Treatment Pending Test Test Name Order Date Ultrasound : Abdomen 12/12/2019 EGD 02/22/2021 Colonoscopy 02/22/2021 Insurance Providers Payer Name Payer Address Payer Phone Subscriber Number Group Number Insured Name Patient Relationship to Insured Coverage Start Date Coverage End Date MEDICARE [employer] [address] [place] [phone] [id number] CAREY DU Self - patient is the insured [facility] [address] [place] [address] [id number] CAREY DU Self - patient is the insured MEDICARE [employer] [address] [place] [phone] [id number] CAREY DU Self - patient is the insured Medical (General) History Surgical History Surgery Date(Month/Year)
== END 2024-07-08 11:49 | disposition home or self-care (01) ==
LOC: HO.HMCH 10:07
PROVIDERS: PCP Internal Medicine
DX: Z13.9 Encounter for screening, unspecified (principal)

== ENCOUNTER 2024-07-17 12:04 | Inpatient (IN) | payer OTHER, SELFPAY ==
--- NOTE | ~2024-07-17 | US_ITS ---
CLINICAL HISTORY: patency of portal viens Limited abdominal ultrasound Comparison: CT/SR - CT ABDOMEN PELVIS WO IV CON - 07/17/24 16:33 EST US/MT/SR - US ABDOMEN LIMITED - 06/03/24 15:48 EST US/SR - US ABDOMEN LIMITED - 04/05/24 08:04 EDT US/SR - US ABDOMEN LIMITED - 07/19/23 09:03 EST Findings: The liver is heterogeneous in echotexture. There is bidirectional flow seen in the main portal vein. Flow is seen within the right and left portal veins. There is ascites. Impression: Cirrhotic liver. Patent portal vein. Bidirectional flow seen within the portal vein secondary to portal hypertension. This document has been electronically signed by: Daisy Wilcox MD on 07/19/2024 13:26:39
--- NOTE | ~2024-07-17 | MR_ITS ---
CLINICAL HISTORY: decompensated liver cirrosis -eval for HCC MR abdomen with and without contrast Comparison: US - US DUPLEX ARTERIAL VENOUS COMP - 07/18/24 09:[address]/SR - CT ABDOMEN PELVIS WO IV CON - 07/17/24 16:[address]/RI/SR - CT ABDOMEN PELVIS WO IV CON - 11/01/22 16:42 EDT Findings: Status post cholecystectomy. There is severe intrahepatic biliary ductal dilatation involving both the right and left lobes of the liver extending to masslike lesion in the liver parenchyma measuring 3.9 x 3.8 cm (see series 5 images 13 through 19). There is artifact in this region secondary to adjacent cholecystectomy clips. No dilation of the common bile duct. Cirrhotic liver. The liver lesion is hypointense on T1 and T2 weighted images. There is restricted diffusion. True arterial phase postcontrast images were not obtained due to air with the power injector. On the images labeled arterial phase there is contrast within portal vein as well. On these images thrombus is seen within the right portal vein (series 15 images 37 through 41). The liver lesion is hypoenhancing on the postcontrast images with thin peripheral rim and enhancement. The spleen measures 13.2 cm in craniocaudal dimension. The other solid organs are unremarkable. No significant bowel dilation. Question mild wall thickening of the bowel which could be secondary to increased hydrostatic pressure from portal hypertension. No aneurysm. No lymphadenopathy. Moderate ascites. Normal marrow signal. Impression: Mass in the liver with malignant features which is favored to be hepatocellular carcinoma. The mass causes severe intrahepatic biliary ductal dilatation. There is a thrombus within the right portal vein which could be tumor or bland thrombus. This document has been electronically signed by: Daisy Wilcox MD on 07/19/2024 19:15:51
--- NOTE | ~2024-07-17 | CT_ITS ---
EXAMINATION: CT ABDOMEN AND PELVIS WITHOUT CONTRAST CLINICAL INFORMATION: Biliary obstruction. COMPARISON: Ultrasound abdomen limited 06/03/2024 TECHNIQUE: Multidetector volumetric imaging was performed from the superior aspect of the liver through the pubic symphysis. Sagittal and coronal reformatted images were obtained on the technologist's workstation. This CT examination was performed using dose optimization techniques as appropriate, variously including the following: *Automated exposure control *Adjustment of mA and/or kV according to patient size (this includes techniques or standardized protocols for targeted exams where dose is matched to indication/reason for exam; i.e. extremities or head) *Use of iterative reconstruction technique FINDINGS: LUNG BASES: The visualized lung bases are unremarkable. LIVER, GALLBLADDER, AND BILIARY TREE: The liver has lobulated contour, heterogeneous and perihepatic ascites. Lack of IV contrast restricts liver parenchymal evaluation. There are hawa are coiled in the inferior right hepatic lobe likely from cholecystectomy. There is perihepatic ascites. The CBD is not dilated and measures 7 mm. PANCREAS: Unremarkable. SPLEEN: Spleen is borderline enlarged measuring 15 cm in AP length. ADRENAL GLANDS: Unremarkable. KIDNEYS AND URETERS: The kidneys are normal in size, shape, and attenuation. No hydronephrosis, hydroureter, or calculi seen. No perinephric stranding. BLADDER: The bladder is decompressed. GASTROINTESTINAL TRACT: The stomach is decompressed and appears unremarkable. The small bowel loops are normal caliber. The colon is decompressed as well. There is moderate ascites. No free air seen. There is and 1.5 cm mesenteric calcification in the upper abdomen. ABDOMINAL WALL: No significant hernia is appreciated. LYMPH NODES: Normal. VASCULAR: The abdominal aorta is unremarkable. There are small varices in the upper abdomen. PELVIC VISCERA: Unremarkable. OSSEOUS STRUCTURES: There is no aggressive lytic or sclerotic process seen. CT/CT abdomen pelvis wo IV con IMPRESSION: Cirrhosis with diffuse ascites. Evaluation of the liver is restricted due to lack of IV contrast. The CBD is nondilated no intrahepatic ductal dilatation seen. Mild mesenteric edema secondary to ascites. Fleischner guidelines were followed. Electronically signed by: Beau Gavin MD 07/17/2024 05:11 PM [facility] [place]
--- NOTE | ~2024-07-17 | US_ITS ---
Ultrasound diagnostic paracentesis History: Ascites. Risks and benefits and possible complications were discussed with the patient and consent form was signed. A safe pocket of ascitic fluid was identified using ultrasound guidance, and the overlying skin was marked. The abdomen prepped and draped in sterile fashion. 1% lidocaine was used as a local anesthetic. Using ultrasound guidance, a 22-gauge spinal needle was placed into the ascitic pocket. 60 ml of yellow fluid was removed sent for analysis. The catheter was then removed. A few medicare sales representative images from before and after the examination were obtained. The procedure was performed by Giovany Saldana PA-C and supervised by Dr. Hoff. US/US paracentesis abd w/image Impression: Ultrasound-guided paracentesis as described above. No immediate complications Electronically signed by: Esteban Hoff MD 07/23/2024 04:51 PM PAM BARRON
[2024-07-17 12:07] VITALS: BP 134/58; PULSE 72; RESP 20; TEMP 36; O2SAT 98; BMI 38.0
--- NOTE | 2024-07-17 12:13 | ED.GENADULT ---
HPI - General Adult General Chief complaint: Recheck/Abnormal Lab/Rx Stated complaint: abnormal labs Time Seen by Provider: 07/17/24 14:22 Source: patient Limitations: no limitations History of Present Illness ED Provider: Chasidy Shanks PA-C HPI narrative: 74-year-old male with a history of known cirrhosis, AFib on apixaban, diabetes, hypertension, morbid obesity, presents with acute onset jaundice and abdominal distention. Patient was seen at urgent Care after having diarrhea for 3 days. He was found to have elevation of his liver function tests. Patient also states he has been having gross hematuria for 2 weeks. Patient denies abdominal pain, nausea, vomiting or fever. Related Data Home Medications ?Medication ?Instructions ?Recorded ?Confirmed apixaban 2.5 mg tablet (Eliquis) mg PO 07/17/24 Previous Rx's ?Medication ?Instructions ?Recorded clotrimazole 1 % topical cream 1 appl topical BID 2 weeks #15 04/18/24 grams fluticasone propionate 50 1 spray intranasal DAILY 30 days 04/18/24 mcg/actuation nasal #16 grams spray,suspension triamcinolone acetonide 0.5 % 1 appl topical DAILY 30 days #15 04/18/24 topical cream grams apixaban 5 mg tablet (Eliquis) 5 mg PO BID #60 tabs 07/08/24 metoprolol tartrate 25 mg tablet 25 mg PO BID 30 days #60 tabs 07/08/24 Allergies Allergy/AdvReac Type Severity Reaction Status Date / Time Iodinated Contrast Media Allergy Back Pain Verified 07/17/24 12:11 [Contrast Dye] perflutren [From Definity] AdvReac Intermediate Back Pain Verified 07/17/24 12:11 Review of Systems Review of Systems: Yes all other systems are reviewed and are negative Constitutional: Constitutional: Denies fatigue and Denies fever(s) Cardiovascular: Cardiovascular: Denies chest pain and Denies dyspnea Respiratory: Respiratory: Denies chest congestion, Denies cough and Denies dyspnea Gastrointestinal: Gastrointestinal: Denies abdominal pain, Reports diarrhea, Denies nausea and Denies vomiting Genitourinary: Genitourinary: Reports hematuria, Denies dysuria and Denies flank pain Endocrine: Endocrine: Denies fatigue PMFSH Past Medical History Attestation statement: The following information was validated with the patient. Medical History Adult general medical exam Screening for prostate cancer Obesity (BMI 30-39.9) Right orbital fracture Forgetfulness Right knee pain Low vitamin D level Elevated LFTs Thrombocytopenia Murmur, cardiac Liver disease Encounter to establish care Gallbladder rupture Surgical History History of surgery on extremity History of cholecystectomy Family History Family History Father Hypertension Heart attack Mother No problems noted. Sister No problems noted. Social History Social History Housing: House Alcohol intake: former Patient Tobacco Use Status: Never used Tobacco Smoked in Last 30 Days: No e-Cigarette/Vaping Use: Never Used Second Hand Smoke Exposure: No Use of substances other than those prescribed or required for medical reasons: No Advance Directives: No Advance Directives Information Provided: Yes Do you have a plan to hurt others: No Plan service: No Current occupational status: retired Current occupation: right hand Cognitive needs: No Hearing needs: Yes Vision needs: Yes Physical Exam ED Vital Signs: Vital Signs - 24 hr 07/17/24 12:07 07/17/24 14:25 Temperature 96.8 F Pulse Rate 72 62 Respiratory Rate 20 18 Blood Pressure 134/58 L 131/51 L Pulse Oximetry 98 98 Oxygen Delivery Method Room Air Room Air BMI result Body Mass Index 38.0 Const Other: Awake Orientation/consciousness: patient oriented x3 Eyes Other: Scleral icterus Resp Effort & Inspection: normal respiratory effort Cardio Other: Normal peripheral perfusion GI Other: Abdomen is protuberant, distended, nontender to deep palpation no guarding Skin Other: Jaundice, warm dry no rash Neuro General: patient oriented x3, gait normal, no focal motor deficits and CN's II-XI intact bilaterally Psych Other: Cooperative Course Course Course Narrative: This is a Rapid Medical Examination (RME) performed by Gabbie Pina PA-C in triage. Full HPI, ROS, assessment and treatment plan per primary provider in the Main ED. 74 yo male hx of T2DM, HTN, cirrhosis and non bloody diarrhea/ rectal pain x3 days and urinating blood x15 days. on AC on afib. Plan: labs, UA +/- will defer imaging to primary provider Medications Administered Discontinued Medications Generic Name Dose Route Start Last Admin Trade Name Sherry PRN Reason Stop Dose Admin Sodium Chloride 1,000 mls @ 999 mls/hr 07/17/24 16:15 07/17/24 16:23 Ns IV 07/17/24 17:15 999 mls/hr .Q1H1M [place]OCK Administration Medical Decision Making Medical Decision Making [facility] Narrative: 74-year-old male with a history of known cirrhosis, AFib on apixaban, diabetes, hypertension, morbid obesity, presents with acute onset jaundice and abdominal distention. Patient was seen at urgent Care after having diarrhea for 3 days. He was found to have elevation of his liver function tests. Patient also states he has been having gross hematuria for 2 weeks. Patient denies abdominal pain, nausea, vomiting or fever. Problem: Known cirrhosis, anticoagulated, diabetes History: Per patient I have considered the following differential diagnoses: Worsening cirrhosis, new ascites, biliary obstruction/cholangitis, SBP Plan: Screening labs were already obtained from triage, we have yet to obtain a urinalysis. In chart review, the patient had a UA on July 08 of this year, that was orange, I feel the patient is mistaking his hematuria for bilirubin in the urine. Given drastic increase in his LFTs, we will be obtaining a CT scan of the abdomen. It is reassuring that he has no abdominal pain and does not have a fever, to suggest SBP. I have independently reviewed the following tests: Labs: Stable pancytopenia, no electrolyte abnormality, creatinine 0.72, total bilirubin 11.7, direct 7.4, AST/ALT are at baseline, alk-phos at baseline at 338 CT abdomen and pelvis: CT/CT abdomen pelvis wo IV con IMPRESSION: Cirrhosis with diffuse ascites. Evaluation of the liver is restricted due to lack of IV contrast. The CBD is nondilated no intrahepatic ductal dilatation seen. Mild mesenteric edema secondary to ascites. Fleischner guidelines were followed. Electronically signed by: Beau Gavin MD 07/17/2024 05:11 PM [facility] Lab Data 07/17/24 13:02 07/17/24 13:02 Labs: Lab Results 07/17/24 Range/Units 13:02 WBC 4.9 (4.8-10.8) X10*3/uL RBC 3.72 L (4.60-5.80) X10*6/uL Hgb 12.8 L (14.0-18.0) g/dl Hct 36.9 L (42.0-52.0) % MCV 99.2 H (80.0-98.0) fL MCH 34.4 H (27.0-33.0) pg MCHC 34.7 (31.0-36.0) g/dl RDW 14.5 (11.0-16.0) % Plt Count 112 L (160-400) X10*3/uL MPV 11.3 (9.4-12.4) fL Immature Gran % (Auto) 0.4 (0.0-0.4) % Neut % (Auto) 74.5 H (45-73) % Lymph % (Auto) 12.4 L (20-40) % Cannon % (Auto) 9.0 (2-11) % Eos % (Auto) 3.1 (0-4) % Baso % (Auto) 0.6 (0-2) % Lymph # (Auto) 0.6 L (1.2-4.9) X10*3/uL Cannon # (Auto) 0.4 (0.1-1.2) X10*3/uL Eos # (Auto) 0.2 (0.0-0.4) X10*3/uL Baso # (Auto) 0.0 (0.0-0.2) X10*3/uL Abs Immat Gran (auto) 0.02 (0.00-0.03) X10*3/uL Absolute Neuts (auto) 3.7 (2.0-8.3) x10*3/uL Absolute Nucleated RBC 0.000 (0.0-0.012) X10*3/uL Nucleated RBC % (auto) 0.0 (0.0-0.2) /100WBC PT 22.2 H D (10.9-12.4) SEC INR 1.9 H (0.9-1.1) APTT 41.1 H (26.0-36.8) SEC Sodium 139 (135-145) mmol/L Potassium 4.3 (3.3-5.1) mmol/L Chloride 110 H (96-108) mmol/L Carbon Dioxide 23 (22-29) mmol/L Anion Gap 10 L (12-20) BUN 13 (9-16) mg/dL Creatinine 0.72 (0.5-1.4) mg/dL Estim Creat Clear Calc 96.3 Estimated GFR > 60 Random Glucose 158 H (60-115) mg/dL Calcium 8.5 (8.4-10.2) mg/dL Magnesium 2.1 (1.6-2.6) mg/dL Total Bilirubin 11.7 H (0.0-1.0) mg/dL Direct Bilirubin 7.4 H (0.0-0.5) mg/dL AST 161 H (5-37) U/L ALT 111 H (0-40) U/L Alkaline Phosphatase 338 H (39-117) U/L Total Protein 6.9 (6.5-8.0) g/dL Albumin 2.8 L (3.5-5.0) g/dL Lipase 25 (8-78) U/L Discharge Plan Discharge Clinical Impression: Cirrhosis of liver, Ascites of liver Patient Disposition: Admitted As Inpatient Print Language: Slovak
[2024-07-17 13:10] LABS: MANUAL DIFF FLAG NO
[2024-07-17 13:12] LABS: Basophils Percent Auto 0.6 % (0-2); Eosinophils Absolute Auto 0.2 X10*3/uL (0.0-0.4); Eosinophils Percent Auto 3.1 % (0-4); Hematocrit 36.9 % (42.0-52.0); Hemoglobin 12.8 g/dl (14.0-18.0); Imm Gran Abs Auto 0.02 X10*3/uL (0.00-0.03); Imm Gran Pct Auto 0.4 % (0.0-0.4); Lymphocytes Absolute Auto 0.6 X10*3/uL (1.2-4.9); Lymphocytes Percent Auto 12.4 % (20-40); Mean Corpuscular HGB Conc 34.7 g/dl (31.0-36.0); Mean Corpuscular Hemoglobin 34.4 pg (27.0-33.0); Mean Corpuscular Volume 99.2 fL (80.0-98.0); Mean Platelet Volume 11.3 fL (9.4-12.4); Monocytes Absolute Auto 0.4 X10*3/uL (0.1-1.2); Neutrophils Absolute Auto 3.7 x10*3/uL (2.0-8.3); Neutrophils Percent Auto 74.5 % (45-73); Platelet Count 112 X10*3/uL (160-400); Red Blood Count 3.72 X10*6/uL (4.60-5.80); Red Cell Distribution Width 14.5 % (11.0-16.0); White Blood Count 4.9 X10*3/uL (4.8-10.8)
[2024-07-17 13:19] LABS: INTERNATIONAL NORM RATIO 1.9 (0.9-1.1); Prothrombin Time 22.2 SEC (10.9-12.4)
[2024-07-17 13:22] LABS: Partial Thromboplastin Time 41.1 SEC (26.0-36.8)
[2024-07-17 13:36] LABS: Alanine Aminotransferase 111 U/L (0-40); Albumin Level 2.8 g/dL (3.5-5.0); Alkaline Phosphatase 338 U/L (39-117); Anion Gap 10 (12-20); Aspartate Amino Transferase 161 U/L (5-37); Bilirubin Total 11.7 mg/dL (0.0-1.0); Blood Urea Nitrogen 13 mg/dL (9-16); Calcium 8.5 mg/dL (8.4-10.2); Carbon Dioxide 23 mmol/L (22-29); Chloride 110 mmol/L (96-108); Creatinine Clr Calc Pharmacy 96.3; Estimated Glomerular Filt Rate > 60; Glucose Random 158 mg/dL (60-115); Lipase 25 U/L (8-78); Magnesium 2.1 mg/dL (1.6-2.6); Potassium 4.3 mmol/L (3.3-5.1); Sodium 139 mmol/L (135-145); Total Protein 6.9 g/dL (6.5-8.0)
[2024-07-17 14:25] VITALS: BP 131/51; PULSE 62; RESP 18; O2SAT 98
--- OUTSIDE RECORDS SUMMARY | 2024-07-17 15:35 | XMS_ITS | Clinical Summary ---
Author Organization [facility] Address [address] [place] [address] Care Team Providers Care [employer] Law Clerk Name Role Phone Unavailable Primary Care Provider [...] to complete this topic [address] [place] [id number]
[2024-07-17 15:53] LABS: Bilirubin Direct 7.4 mg/dL (0.0-0.5)
[2024-07-17] MEDS: 0.9 % Sodium Chloride 1,000 ML 999 ML IV (16:23)
[2024-07-17 18:01] LABS: Appearance Urine Clear; Color Urine DK YELLOW; Glucose Urine UA 100 mg/dL (Negative); Leukocyte Esterase Urine Negative (Negative); Specific Gravity - Urine >= 1.030 (1.005-1.025); UMIC TRIGGER UACC YES; Urine Blood Trace (Negative); Urine Ketones Trace mg/dL (Negative); Urine Protein Trace mg/dL (Neg-Trace)
[2024-07-17 18:08] LABS: Bacteria Urine None Seen (None Seen); WBC Urine 0-5 /HPF (0-5)
--- NOTE | 2024-07-17 19:03 | PHA.MEDREC ---
Addendum entered by Esteban Nolen [facility] 07/17/24 19:09: Med rec reviewed, metoprolol is 25 mg bid Original Note: Pharmacy Consult ? Medication Reconciliation Pharmacy has completed the medication reconciliation. Spoke with patients family at bedside who had patients Rx bottles on hand on what he is taking. Patients family was able to interpret and state he is taking the Eliquis 5mg tab twice a day and the Metoprolol Tartrate 35mg tabs twice a day. They confirmed the patient took his medications this morning.
[2024-07-17 19:49] VITALS: BP 130/55; PULSE 66; RESP 16; TEMP 36.5; O2SAT 100
--- NOTE | 2024-07-17 21:10 | P.HPHOSP_ITS ---
History of Present Illness Date of Service: 07/17/24 Attending physician on admission: Alex Mcclendon Chief Complaint: Worsening jaundice with diarrhea and loss of appetite Patient is a 74 year old pleasant male with PMH of cirrhosis, AFib (on apixaban), type 2 diabetes, hypertension, and morbid obesity who presents to the emergency room accompanied by his for evaluation of worsening jaundice. This history was obtained with the assistance of a van driver helper. He was diagnosed with liver cirrhosis more than 15 years ago at which time he was a heavy drinker but has been sober for many years. He currently follows up with Dr. Walsh in the Hepatology clinic and has been fairly stable until now when he noticed acute onset of jaundice, abdominal distension, diarrhea and loss of appetite. He has also noticed that his urine was getting darker. He also reports associated diarrhea and loss of appetite. He denies any associated abdominal pain, nausea, vomiting fevers or chills. Initial blood work done in the ED tonight reveals worsening bilirubin when compared to blood work done 10 days ago on Jul 08 2024 (6.5 vs 11.7). Abdominal CT scan showed cirrhosis with diffuse ascites. The CBD is nondilated and he has no intrahepatic ductal dilatation. His vital signs are failry stable. Admission was requested for further management and Hepatology consultation. Review of Systems 2 Review of Systems: Yes all other systems are reviewed and are negative [facility] Medical History Adult general medical exam Screening for prostate cancer Obesity (BMI 30-39.9) Right orbital fracture Forgetfulness Right knee pain Low vitamin D level Elevated LFTs Thrombocytopenia Murmur, cardiac Liver disease Encounter to establish care Gallbladder rupture Family History Father Hypertension Heart attack Mother No problems noted. Sister No problems noted. Surgical History History of surgery on extremity History of cholecystectomy Social History Housing: House Alcohol intake: former Patient Tobacco Use Status: Never used Tobacco Smoked in Last 30 Days: No e-Cigarette/Vaping Use: Never Used Second Hand Smoke Exposure: No Use of substances other than those prescribed or required for medical reasons: No Advance Directives: No Advance Directives Information Provided: Yes Do you have a plan to hurt others: No Plan service: No Current occupational status: retired Current occupation: right hand Cognitive needs: No Hearing needs: Yes Vision needs: Yes Meds Allergies Allergy/AdvReac Type Severity Reaction Status Date / Time Iodinated Contrast Media Allergy Back Pain Verified 07/17/24 12:11 [Contrast Dye] perflutren [From Definity] AdvReac Intermediate Back Pain Verified 07/17/24 12:11 Physical Exam 2 Vital Signs and Narrative: Vital Signs: Last Vital Signs Temp 97.7 F 07/17/24 19:49 Pulse 66 07/17/24 19:49 Resp 16 07/17/24 19:49 BP 130/55 L 07/17/24 19:49 Pulse Ox 100 07/17/24 19:49 O2 Del Method Room Air 07/17/24 19:49 BMI result Body Mass Index 38.0 General: Obese elderly male in bed. Jaundiced +++. Otherwise awake and alert and in no obvious respiratory distress. Psychiatric: Pleasant, well kempt, cooperative with normal thought process, speech, cognition and affect. HEENT: Normocephalic, atraumatic. Jaundiced +++. Moist oral mucus membranes Neck: Supple. No JVD Lungs: Clear to auscultation bilaterally. No rales, rhonchi or wheezes Heart: RRR. Normal s1/s2. No murmurs, rubs or gallops. No peripheral edema. Abdomen: Obese, flabby, soft, non-tender. Normo-active bowel sounds. No visceromegaly. Genitourinary: Deferred Back/Spine/Pelvis: Deferred Skin: Warm, dry, well perfused. Normal turgor. No mottling. Normal capillary refill (< 2 seconds). Neurologic: Awake and alert. Intact speech & cognition. Normal gait & balance. CN II-XII grossly normal. Extremities: Normal muscle bulk, tone and power. No obvious deformities. No peripheral edema. Good peripheral pulses. Results Labs 07/17/24 13:02 07/17/24 13:02 Labs: Laboratory Results - last 24 hr 07/17/24 07/17/24 13:02 17:54 MCV 99.2 H MCH 34.4 H MCHC 34.7 RDW 14.5 Plt Count 112 L MPV 11.3 Immature Gran % (Auto) 0.4 Neut % (Auto) 74.5 H Lymph % (Auto) 12.4 L Keith % (Auto) 9.0 Eos % (Auto) 3.1 Baso % (Auto) 0.6 Lymph # (Auto) 0.6 L Keith # (Auto) 0.4 Eos # (Auto) 0.2 Baso # (Auto) 0.0 Abs Immat Gran (auto) 0.02 Absolute Neuts (auto) 3.7 Absolute Nucleated RBC 0.000 Nucleated RBC % (auto) 0.0 PT 22.2 H D INR 1.9 H APTT 41.1 H Anion Gap 10 L Estim Creat Clear Calc 96.3 Estimated GFR > 60 Random Glucose 158 H Calcium 8.5 Magnesium 2.1 Total Bilirubin 11.7 H Direct Bilirubin 7.4 H AST 161 H ALT 111 H Alkaline Phosphatase 338 H Total Protein 6.9 Albumin 2.8 L Lipase 25 Urine Color DK YELLOW Urine Appearance Clear Urine pH 5.0 Ur Specific [place] >= 1.030 H Urine Protein Trace Urine Glucose (UA) 100 H Urine Ketones Trace Urine Blood Trace Urine Nitrite See Note Ur Leukocyte Esterase Negative Urine RBC 3-5 H Urine WBC 0-5 Ur Squamous Epith Cells 3-5 Urine Bacteria None Seen Hyaline Casts 3-5 Imaging Radiologist's Impressions: Impressions Abdomen/Pelvis CT 07/17/24 15:47 IMPRESSION: Cirrhosis with diffuse ascites. Evaluation of the liver is restricted due to lack of IV contrast. The CBD is nondilated no intrahepatic ductal dilatation seen. Mild mesenteric edema secondary to ascites. Fleischner guidelines were followed. Electronically signed by: Beau Gavin MD 07/17/2024 05:11 PM [facility] Assessment and Plan (1) Cirrhosis of liver with ascites: Status: Acute (2) Elevated liver enzymes: Status: Acute (3) Jaundice: Status: Acute (4) Atrial fibrillation: Qualifiers: Atrial fibrillation type: unspecified Qualified Code(s): I48.91 - Unspecified atrial fibrillation Status: Acute (5) Essential hypertension: Status: Acute Plan Patient is a 74 year old pleasant male with PMH of liver cirrhosis, atrial fibrillation (on apixaban), type 2 diabetes, hypertension, and morbid obesity here with: 1. Decompensated liver cirrhosis - he has underlying history of liver cirrhosis for which he follows up with the GI team - however there is no mention of ascites in the past - likely the acute decompensation due to unclear cause - admitting the consult GI for additional input 2. Hyperbilirubinemia - secondary to underlying liver cirrhosis - noted significant elevation in bilirubin from 6.5-11.7 - abdominal CT scan done did not identify any ductal obstruction - will defer further workup/management with the GI team 3. Jaundice - secondary to hyperbilirubinemia due to liver cirrhosis - monitor 4. Atrial fibrillation - rate controlled on metoprolol - hold Eliquis now that his INR is elevated at 1.9 in setting of liver cirrhosis 5. Essential hypertension - BP control is fair - continue with metoprolol Total time managing care of this patient today: 75 minutes. Quality Stroke Does the patient have a stroke diagnosis?: No VTE Prior VTE?: No VTE Risk Level:: Medical - low VTE Device Contraindication: Treatment Not Indicated VTE Drug Contraindication: Treatment Not Indicated
--- NOTE | 2024-07-17 22:18 | PC.NURSE ---
patient lying in bed, alert and oriented, denies pain. eating a sandwich, crackers, drinking water. pt tolerating PO intake, no dysphagia. he states he is comfortable, and his needs are met to the bag printer. call jade in reach. plan of care ongoing, awaiting bed assignment
[2024-07-18] VITALS (10 sets, daily range): BP systolic 113–147; BP diastolic 54–70; PULSE 69–108; RESP 14–23; TEMP 36.4–37.1; O2SAT 97–99; BMI 39.7
[2024-07-18 05:31] LABS: MANUAL DIFF FLAG NO
[2024-07-18 05:39] LABS: Basophils Percent Auto 0.5 % (0-2); Eosinophils Absolute Auto 0.1 X10*3/uL (0.0-0.4); Eosinophils Percent Auto 3.4 % (0-4); Hematocrit 35.7 % (42.0-52.0); Hemoglobin 12.4 g/dl (14.0-18.0); Imm Gran Abs Auto 0.01 X10*3/uL (0.00-0.03); Imm Gran Pct Auto 0.3 % (0.0-0.4); Lymphocytes Absolute Auto 0.6 X10*3/uL (1.2-4.9); Lymphocytes Percent Auto 16.1 % (20-40); Mean Corpuscular HGB Conc 34.7 g/dl (31.0-36.0); Mean Corpuscular Hemoglobin 34.3 pg (27.0-33.0); Mean Corpuscular Volume 98.6 fL (80.0-98.0); Mean Platelet Volume 12.3 fL (9.4-12.4); Monocytes Absolute Auto 0.4 X10*3/uL (0.1-1.2); Monocytes Percent Auto 10.4 % (2-11); Neutrophils Absolute Auto 2.7 x10*3/uL (2.0-8.3); Neutrophils Percent Auto 69.3 % (45-73); Platelet Count 91 X10*3/uL (160-400); Red Blood Count 3.62 X10*6/uL (4.60-5.80); Red Cell Distribution Width 14.2 % (11.0-16.0); White Blood Count 3.8 X10*3/uL (4.8-10.8)
--- NOTE | 2024-07-18 07:00 | CA_ITS ---
Transthoracic Echocardiogram Patient (Last, First, Middle): Slim Regalado, Gender: Male Date of : 1950 Age: 74 Procedure Date: 07/18/2024 Procedure Type: Transthoracic Echocardiogram Location: S3E Height: 162.56 cm Weight: 100.25 kg BSA: 2.04 m2 Heart Rate: 60 bpm BP: 122 / 70 mmHg Cavalry Scout: TELMA Ragsdale MD: Chasity Valencia MD Symptoms: ascitis Study Quality: Fair/ No Definity used, prior adverse reaction Conclusions: - Normal left ventricular size, thickness, systolic function, and wall motion. The visually estimated ejection fraction is between 55-60%. - Elevated filling pressures. - Mildly increased right ventricular cavity size. There is normal right ventricular systolic function. - There is moderate to severe aortic valve stenosis. Findings Left Ventricle Normal left ventricular size, thickness, systolic function, and wall motion. The visually estimated ejection fraction is between 55-60%. Abnormal diastolic function is noted. Spectral Doppler is indicative of an impaired relaxation filling pattern. Elevated filling pressures. Right Ventricle Mildly increased right ventricular cavity size. There is normal right ventricular systolic function. Atria The left atrium is mildly dilated. The right atrium is normal in size. Aortic Valve There is a normal trileaflet aortic valve. There is severe calcification of the aortic valve. There is moderate to severe aortic valve stenosis. The mean gradient is 26 mmHg. The aortic valve area is 0.91 cm2. There is trace (trivial) aortic valve regurgitation. DI 0.30. SVI 37 Mitral Valve There is moderate mitral annular calcification. There is trace mitral valve regurgitation. There is no mitral valve stenosis. Pulmonic Valve The pulmonic valve is likely normal. There is no pulmonic valve regurgitation. Tricuspid Valve Normal tricuspid valve structure. There is no tricuspid valve regurgitation. Tricuspid regurgitation envelope is inadequate for calculation of right ventricular systolic pressure. Normal right atrial pressure. Great Vessels All visible segments of the aorta are normal in size. The visualized portions of the pulmonary artery and branches are normal. Venous The inferior vena cava is normal in size and collapses greater than 50% with inspiration. Pericardium/Pleural There is no evidence of pericardial effusion. Prior Study Comparison Changes noted compared to prior study dated: 05/07/2024. Moderate to severe present. Measurements 2D Linear Measurements IVSd: 0.90 0.6-0.9/0.6-1.0 cm LVIDd: 4.29 3.9-5.3/4.2-5.9 cm LVIDd Index: 2.10 2.4-3.2/2.2-3.1 cm/m2 LVIDs: 3.58 2.0-3.6 cm LVPWd: 1.05 0.7-1.1 cm LA Diam: 4.30 2.7-3.8/3.0-4.0 cm LAIDs Index: 2.11 1.5-2.3 cm/m2 LV Mass: 170.33 67-162/88-224 g LV Mass Index: 83.50 43-95/49-115 g/m2 LVOT Diam: 1.90 3.0+(-)1.3 cm 2D Systolic Function EF 4C: 53.10 >55% EF 2C: 62.30 >55% EF BiP: 58.40 >55% Mitral Valve MV VTI: 0.42 MV Pk Venkat: 1.36 MV Mn Venkat: 0.96 MV Pk Grad: 7.00 MV Mn Grad: 4.00 MV Pk E: 1.10 MV PK A: 1.40 MV Decel Time: 397.00 E/A: 0.80 E'Lateral: 8.16 E'Medial: 5.22 E/E' Med: 21.10 E/E' Lat: 13.50 PHT: 116.00 MVA PHT: 1.90 MVA Continuity: 1.77 Decel Moody: 2.76 Aortic Valve AoV Pk Venkat: 3.29 AoV Mn Venkat: 2.34 AoV VTI: 0.79 AoV Pk Grad: 43.00 Aov Mn Grad: 26.00 NOEMI Cont.VTI: 0.91 LVOT LVOT Pk Venkat: 0.99 LVOT Mn Venkat: 0.71 LVOT VTI: 0.26 LVOT Pk Grad: 4.00 LVOT Mn Grad: 2.00 LVOT Diam: 1.90 LVOT Area: 2.84 Diastolic Function MV Pk E: 1.10 MV Pk A: 1.40 E/A: 0.80 E'Medial: 5.22 E/E' Med: 21.10 E' Laterial: 8.16 E/E' Lat: 13.50 Right Ventricle TAPSE (mm): 22.10 TVS' Venkat: 12.10 Tricuspid Valve TR Pk Venkat: 2.09 TR Pk Grad: 17.00 Great Vessels Aorta Sinus of Valsalva: 3.30 2.0-3.5 cm Ao Asc: 3.40 2.1-3.4 cm Ao Arch: 3.40 Pulmonary Valve PV Pk Venkat: 1.11 Peak PV Grad: 5.00 Updated in Other Vendor System with Status of Final David Rocha MD electronically signed on 07/19/2024 10:24:35 PM with status of Final
--- NOTE | 2024-07-18 08:01 | P.CNGI_ITS ---
History of Present Illness Data of Consult Service Date: 07/18/24 Requesting physician: Alex Mcclendon Primary Care Provider: Mckenzie Bravo MD HPI Reason for consult: Decompensated cirrhosis 74 ym WITH cirrhosis, AFib (on apixaban), type 2 diabetes, hypertension, and morbid obesity seen at [facility] on 07/17/24 for evaluation of worsening jaundice. Pt is known to me from past GI clinci visits Pt was diagnosed with liver cirrhosis > 15 years ago at which time he was a heavy drinker but has been sober for many years. Hx obtained with the help of an [facility] Tristanian science interpreter. Pt reports he had flu like symptoms 3 weeks ago and has been feeling unwell since then. Pt noted acute onset of jaundice, abdominal distension, diarrhea and loss of appetite with dark urine. He also reports associated diarrhea and loss of appetite. He denied any associated abdominal pain, nausea, vomiting fevers or chills. Labs in the ED tonight showed worsening bilirubin when compared to blood work done 10 days ago on Jul 08 2024 (6.5 vs 11.7). Admission was requested for further management and Hepatology consultation. 07/17/[address] SCAN SHOWED: Cirrhosis with diffuse ascites. Evaluation of the liver is restricted due to lack of IV contrast. The CBD is nondilated no intrahepatic ductal dilatation seen. Mild mesenteric edema secondary to ascites. PAST GI HISTORY BY REVIEW OF MEDICAL RECORDS: PT WAS SEEN IN THE GI CLINIC ON 03/28/2024: 73 year old Tristanian-speaking male with cirrhosis, hypertension, cardiac murmur, thrombocytopenia, diabetes here for fu of cirrhosis. Cirrhosis is likely due to ZARAGOZA related to obesity and past ETOH abuse The patient was diagnosed with cirrhosis 15 - 16 yrs ago and was followed by Dr. Randle from [facility] ([facility]) - records were requested from the GI office Pt has been sober for 20 years (he used to drink 12 pack beer/day). REDUCING THE RISK OF LIVER PROGRESSION:? patient was advised to completely avoid use of alcohol and lose weight. Being obese puts him at risk of progressive steatotic liver injury and He needs to try to lose 10% of his weight. HCC SURVEILLANCE: ? the patient is at risk of developing hepatocellular carcinoma given the presence of cirrhosis and need 6 monthly imaging surveillance with either abdominal ultrasound (US) or multiphase cross-sectional imaging (CT or MRI).? Order for an MRI was placed since liver was not well visualized on abd US (Pt gives a hx of suspected contrast allergy when he received IV contrast for a CT scan in the past and refusing to have a CT scan with pre-medications for contrast allergy). MRI was ordered after his last visit, pt was called x 3 by the MRI dept to schedule and did not return calls since he is Tristanian speaking. His is requesting to call their son (Harpreet Regalado at [phone]) schedule the MRI appointment SURVEILLANCE FOR GASTROESOPHAGEAL VARICES: EGD to screen for varices if platelet count decreases to < 100. QUESTION OF LIVER TRANSPLANTATION: ? MELD score is 10. Pt does not need to be referred for Liver Transplant at present. 09/28/23 Abd US results reviewed Gives a hx of abd pain on the sides with some distension, aasociated with intake of certain foods - advised a trail of famotidine. Intermittent constipation - takes olive oil prn Had lower extremity edema in the past and none at present. Notes itching and tingling in the scrotal area if he walks a lot - advised to discuss with his PCP Denies LE edema. 03/28/24 Intermittent constipation and not on any medication reports pt is somnolent during the day - ? early encephalopathy or due to obstructive sleep apnea Advised to check labs and US Review of Systems 2 Review of Systems: Yes all other systems are reviewed and are negative PMFSH Past Medical History Medical History Adult general medical exam Screening for prostate cancer Obesity (BMI 30-39.9) Right orbital fracture Forgetfulness Right knee pain Low vitamin D level Elevated LFTs Thrombocytopenia Murmur, cardiac Liver disease Encounter to establish care Gallbladder rupture Family History Family History Father Hypertension Heart attack Mother No problems noted. Sister No problems noted. Surgical History Surgical History History of surgery on extremity History of cholecystectomy Social History Social History Household Members: Spouse Housing: Apartment Do you presently have visiting nurse or other home services: No Alcohol intake: former Patient Tobacco Use Status: Never used Tobacco e-Cigarette/Vaping Use: Never Used Second Hand Smoke Exposure: No service: No Current occupational status: retired Current occupation: right hand Cognitive needs: No Hearing needs: Yes Vision needs: Yes Meds Allergies Allergy/AdvReac Type Severity Reaction Status Date / Time Iodinated Contrast Media Allergy Back Pain Verified 07/17/24 12:11 [Contrast Dye] perflutren [From Definity] AdvReac Intermediate Back Pain Verified 07/17/24 12:11 Active Medications: Current Medications Calcium Carbonate (Calcium Carbonate 750 Mg Tab.Chew) 750 mg PO Q4H PRN PRN Reason: Heartburn Magnesium Hydroxide (Milk Of Magnesia 30 Ml Oral.Susp) 30 ml PO DAILY PRN PRN Reason: Constipation Melatonin (Melatonin 3 Mg Tablet) 6 mg PO BEDTIME PRN PRN Reason: Insomnia Ondansetron HCl (Ondansetron Hcl 4 Mg/2 Ml Vial) 4 mg IVPUSH Q8H PRN PRN Reason: Nausea and Vomiting Oxycodone HCl (Oxycodone Hcl Immed Release 5 Mg Tablet) 5 mg PO Q6H PRN PRN Reason: Pain, Severe (Pain Scale 7-10) Sodium Chloride (0.9 % Sodium Chloride Flush 3 Ml Syringe) 3 ml IVFLUSH QSHIFT [place] Last Admin: 07/18/24 00:00 Dose: Not Given Physical Exam 2 Vital Signs: Vital Signs: Last Vital Signs Temp 98.8 F 07/18/24 06:13 Pulse 74 07/18/24 06:13 Resp 14 07/18/24 06:13 BP 120/69 07/18/24 06:13 Pulse Ox 97 07/18/24 06:13 O2 Del Method Room Air 07/18/24 06:13 BMI result Body Mass Index 38.0 Const: General: no acute distress Nutritional Appearance: obese O rientation/consciousness: patient oriented x3 Limitations: language barrier HEENT: Head: Yes normal to inspection Ears: hearing grossly normal bilaterally Eyes: Sclerae: sclerae normal Pupils: Equal, round and reactive pupils present Neck: Neck: Yes normal visual inspection Chest: Chest palpation & inspection: normal inspection of the chest Resp: Effort & Inspection: normal respiratory effort Auscultation: clear to auscultation bilaterally Cardio: Palpation: normal PMI Rate: regular rate Rhythm: regular rhythm Heart sounds: S1 normal heart sound present, S2 normal heart sound present and no murmurs GI: Inspection: Yes distended Palpation (GI): Soft to palpation, nontender and No hepatosplenomegaly present Auscultation: normal bowel sounds Rectal Exam - Male: Yes deferred Skin: General skin exam: no rashes or lesions noted Neuro: General: patient oriented x3, gait normal and moves all extremities Cranial nerves: Yes Equal, round and reactive pupils present Extrem: General: Yes pedal edema Psych: Appearance: grossly normal Mental Status: mental status grossly normal Results Labs 07/19/24 14:47 07/19/24 14:47 Labs: Short CBC 07/17/24 07/18/24 Range/Units 13:02 04:45 WBC 4.9 3.8 L (4.8-10.8) X10*3/uL Hgb 12.8 L 12.4 L (14.0-18.0) g/dl Hct 36.9 L 35.7 L (42.0-52.0) % Plt Count 112 L 91 L (160-400) X10*3/uL BMP 07/17/24 13:02 Sodium 139 Potassium 4.3 Chloride 110 H Carbon Dioxide 23 BUN 13 Creatinine 0.72 Calcium 8.5 Liver Function 07/17/24 Range/Units 13:02 Total Bilirubin 11.7 H (0.0-1.0) mg/dL Direct Bilirubin 7.4 H (0.0-0.5) mg/dL AST 161 H (5-37) U/L ALT 111 H (0-40) U/L Alkaline Phosphatase 338 H (39-117) U/L Albumin 2.8 L (3.5-5.0) g/dL Urine 07/17/24 Range/Units 17:54 Urine Color DK YELLOW Urine Appearance Clear Urine pH 5.0 (5.0-9.0) Ur Specific [place] >= 1.030 H (1.005-1.025) Urine Protein Trace (Neg-Trace) mg/dL Urine Glucose (UA) 100 H (Negative) mg/dL Assessment and Plan (1) Cirrhosis of liver with ascites: Status: Acute Plan 74 YM WITH cirrhosis, AFib (on apixaban), type 2 diabetes, hypertension, and morbid obesity admitted to [facility] on 2/5/25 for with worsening jaundice and new onset ascites without clear etiology possibly superimposed viral hepatitis, PVT, SBP or HCC and less likely biliary obstruction. 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 Check hep A, B and C serologies and AFP 2. Labs to rule out CMV, EBV and Autoimmune liver disease -added to am labs 3. Duplex US to rule out PVT 4. MRI/MRCP with IV contrast to rule out HCC. ADDENDUM: DUPLEX US SHOWED: Cirrhotic liver. Patent portal vein. Bidirectional flow seen within the portal vein secondary to portal hypertension. Procedures Date of Service Date of Service: 07/19/24
[2024-07-18] MEDS: 0.9 % Sodium Chloride Flush 3 ML SYRINGE IVFLUSH ×2 (08:31→20:00)
[2024-07-18] MEDS: Albumin Human 25 % 100 ML IV ×2 (09:42→10:07)
[2024-07-18] MEDS: Metoprolol Tartrate 25 MG TABLET PO ×2 (09:44→19:55)
[2024-07-18 09:58] LABS: Alanine Aminotransferase 111 U/L (0-40); Albumin Level 2.7 g/dL (3.5-5.0); Alkaline Phosphatase 342 U/L (39-117); Anion Gap 12 (12-20); Aspartate Amino Transferase 171 U/L (5-37); Bilirubin Total 13.2 mg/dL (0.0-1.0); Blood Urea Nitrogen 13 mg/dL (9-16); Calcium 8.4 mg/dL (8.4-10.2); Carbon Dioxide 23 mmol/L (22-29); Chloride 109 mmol/L (96-108); Estimated Glomerular Filt Rate > 60; Glucose Random 150 mg/dL (60-115); Potassium 4.5 mmol/L (3.3-5.1); Sodium 139 mmol/L (135-145); Total Protein 6.9 g/dL (6.5-8.0)
[2024-07-18] MEDS: Lidocaine HCl 1 % MPF 5 ML VIAL SUBCUT (12:24)
[2024-07-18 12:41] LABS: MN% 91.2 %; PMN% 8.8 %; RBC Peritoneal Fluid 0.003 X10*6/uL; WBC Peritoneal Fluid 0.308 X10*3/uL
[2024-07-18 14:00] LABS: Lymphocyte Peritoneal Fl 57 %; Monocytes Peritoneal Fl 4 %; Neutrophils Peritoneal Fluid 7 %
[2024-07-18 14:01] LABS: BF Shift QC OK YES; Other Peritioneal Fl 32 %
--- NOTE | 2024-07-18 14:29 | MHC.CM.PN ---
FUR COAT SEWER SPOKE WITH PT'S CONTACT OVER THE PHONE PT LIVES WITH SPOUSE IN AN APARTMENT HE DOES NOT RECEIVE SERVICES OR USE DME. PT SIGNED A HCP NAMING SON AGENT, CAREY, PT'S INSURANCE IS FORMERLY [facility], [facility] DELIVERED DCP- HOME NO SERVICES VIA PRIVATE TRANSPORT
--- NOTE | 2024-07-18 14:47 | PM.PROC ---
Brief Operative Note Date of procedure: 07/18/24 Pre-op diagnosis: Ascites Post-op diagnosis: same Procedure: US paracentesis -Small volume ascites present in RLQ. 60 cc serous fluid removed and sent for analysis.
--- NOTE | 2024-07-18 17:18 | P.PNIM_ITS ---
Subjective Subjective Date of Service: 07/18/24 Interval History: Decompensated liver cirrhosis Review of Systems denies sob , denies abd pain had paracentesis appetite improving Physical Exam 2 Vital Signs: Vital Signs: Last Vital Signs Temp 98.1 F 07/18/24 15:56 Pulse 69 07/18/24 15:56 Resp 18 07/18/24 15:56 BP 122/61 07/18/24 15:56 Pulse Ox 98 07/18/24 15:56 O2 Del Method Room Air 07/18/24 15:56 BMI result Body Mass Index 39.7 Appearance: Alert.? Oriented X3.? cvs: rrr, [id number] , no murmur res: clear to auscultation ,no rhonchii or wheezing abd: no rebound or guarding ,nt, bs present. ext pulses present , no cyanosis ,Gait well balanced well coordinated. neuro: axo3 , nonfocal. Objective Data Active Medications Calcium Carbonate (Calcium Carbonate 750 Mg Tab.Chew) 750 mg PO Q4H PRN PRN Reason: Heartburn Fluticasone Propionate (Fluticasone Propionate Nasal 16 Gm [place]) 1 spray NOSTRIL-B DAILY COUNTS INCLUDE 234 BEDS AT THE [facility] Last Admin: 07/18/24 10:58 Dose: Not Given Documented By: KENTON Non-Admin Reason: Off unit Ed Magnesium Hydroxide (Milk Of Magnesia 30 Ml Oral.Susp) 30 ml PO DAILY PRN PRN Reason: Constipation Melatonin (Melatonin 3 Mg Tablet) 6 mg PO BEDTIME PRN PRN Reason: Insomnia Metoprolol Tartrate (Metoprolol Tartrate 25 Mg Tablet) 25 mg PO BID COUNTS INCLUDE 234 BEDS AT THE [facility]; Protocol Last Admin: 07/18/24 09:44 Dose: 25 mg Documented By: STACIE Ondansetron HCl (Ondansetron Hcl 4 Mg/2 Ml Vial) 4 mg IVPUSH Q8H PRN PRN Reason: Nausea and Vomiting Oxycodone HCl (Oxycodone Hcl Immed Release 5 Mg Tablet) 5 mg PO Q6H PRN PRN Reason: Pain, Severe (Pain Scale 7-10) Sodium Chloride (0.9 % Sodium Chloride Flush 3 Ml Syringe) 3 ml IVFLUSH QSHIFT COUNTS INCLUDE 234 BEDS AT THE [facility] Last Admin: 07/18/24 15:39 Dose: Not Given Documented By: KENTON Non-Admin Reason: Previously Administered Labs 07/18/24 04:45 07/18/24 09:17 Labs: Laboratory Results - last 24 hr 07/17/24 07/18/24 07/18/24 17:54 04:45 09:17 MCV 98.6 H MCH 34.3 H MCHC 34.7 RDW 14.2 Plt Count 91 L MPV 12.3 Immature Gran % (Auto) 0.3 Neut % (Auto) 69.3 Lymph % (Auto) 16.1 L [place] % (Auto) 10.4 Eos % (Auto) 3.4 Baso % (Auto) 0.5 Lymph # (Auto) 0.6 L [place] # (Auto) 0.4 Eos # (Auto) 0.1 Baso # (Auto) 0.0 Abs Immat Gran (auto) 0.01 Absolute Neuts (auto) 2.7 Absolute Nucleated RBC 0.000 Nucleated RBC % (auto) 0.0 Anion Gap 12 Estim Creat Clear Calc 102.0 Estimated GFR > 60 Random Glucose 150 H Calcium 8.4 Total Bilirubin 13.2 H AST 171 H ALT 111 H Alkaline Phosphatase 342 H Total Protein 6.9 Albumin 2.7 L Urine Color DK YELLOW Urine Appearance Clear Urine pH 5.0 Ur Specific [place] >= 1.030 H Urine Protein Trace Urine Glucose (UA) 100 H Urine Ketones Trace Urine Blood Trace Urine Nitrite See Note Ur Leukocyte Esterase Negative Urine RBC 3-5 H Urine WBC 0-5 Ur Squamous Epith Cells 3-5 Urine Bacteria None Seen Hyaline Casts 3-5 Peritoneal WBC Peritoneal RBC Periton Neutrophils Periton Lymphocytes Peritoneal Monocytes Peritoneal Other Cells 07/18/24 12:00 MCV MCH MCHC RDW Plt Count MPV Immature Gran % (Auto) Neut % (Auto) Lymph % (Auto) [place] % (Auto) Eos % (Auto) Baso % (Auto) Lymph # (Auto) [place] # (Auto) Eos # (Auto) Baso # (Auto) Abs Immat Gran (auto) Absolute Neuts (auto) Absolute Nucleated RBC Nucleated RBC % (auto) Anion Gap Estim Creat Clear Calc Estimated GFR Random Glucose Calcium Total Bilirubin AST ALT Alkaline Phosphatase Total Protein Albumin Urine Color Urine Appearance Urine pH Ur Specific [place] Urine Protein Urine Glucose (UA) Urine Ketones Urine Blood Urine Nitrite Ur Leukocyte Esterase Urine RBC Urine WBC Ur Squamous Epith Cells Urine Bacteria Hyaline Casts Peritoneal WBC 0.308 Peritoneal RBC 0.003 Periton Neutrophils 7 Periton Lymphocytes 57 Peritoneal Monocytes 4 Peritoneal Other Cells 32 Microbiology Microbiology Results: Microbiology 07/18/24 12:00 Gram Stain - Final Abdominal Fluid Assessment and Plan (1) Cirrhosis of liver with ascites: Status: Acute (2) Ascites of liver: Status: Acute Assessment and Plan: 74 year old pleasant male with PMH of liver cirrhosis, atrial fibrillation (on apixaban), type 2 diabetes, hypertension, and morbid obesity here with: 1 Decompensated liver cirrhosis- he has underlying history of liver cirrhosis for which he follows up with the GI team. however there is no mention of ascites in the past acute decompensation due to unclear cause: Workup including AFP, hepatitis screening, duplex ultrasound for portal vein patency ordered. Paracentesis ordered-labs reviewed peritoneal WBC count is 308 but mostly lymphocytic. UA is negative for protein, has elevated LFTs, also added echo . GI evaluation pending liver cirrosis : Hyperbilirubinemia - secondary to underlying liver cirrhosis - noted significant elevation in bilirubin from 6.5-11.7 - abdominal CT scan done did not identify any ductal obstruction Jaundice- secondary to hyperbilirubinemia due to liver cirrhosis - monitor also has mild pancytopenia sec to liver dis,moniter cbc . Atrial fibrillation - rate controlled on metoprolol - hold Eliquis now that his INR is elevated at 1.9 in setting of liver cirrhosis Essential hypertension - BP control is fair - continue with metoprolol ongoing need for stay: Decompensated liver cirrhosis- need lfts monitering and further liver dis workup ,Gi eval. Above was discussed with the patient with the help of electric motor assembler in detail length he understand and in agreement with the above plan. Quality Stroke Does the patient have a stroke diagnosis?: No VTE Prior VTE?: No VTE Risk Level:: Medical - low VTE Device Contraindication: Treatment Not Indicated VTE Drug Contraindication: Treatment Not Indicated
[2024-07-19 03:33] VITALS: BP 139/63; PULSE 80; RESP 16; TEMP 36.7; O2SAT 99
[2024-07-19 07:17] VITALS: BP 123/61; PULSE 77; RESP 18; TEMP 36.2; O2SAT 99
[2024-07-19 08:01] LABS: HBc Num1 0.25 S/CO (0.00-0.79); HBsAGNum1 0.29 S/CO (0.00-0.99); Hepatitis A Antibody IgM 0.28 Index (0-0.79); Hepatitis B Core Antibody Nonreactive (Nonreactive); Hepatitis B Surface Antigen Negative (Negative); ~Hepatitis A Antibody IgM Nonreactive (Nonreactive); ~Hepatitis B Surface Antibody NONREACTIVE (Nonreactive); ~Hepatitis C Antibody Nonreactive (Nonreactive)
[2024-07-19 08:09] LABS: Albumin Peritoneal Fluid 0.7; pH Peritoneal Fluid 7.51
[2024-07-19 08:10] LABS: Glucose Peritoneal Fluid 151; LDH Peritoneal Fluid 47; Total Protein Peritoneal Fluid 1.1
[2024-07-19] MEDS: Metoprolol Tartrate 25 MG TABLET PO ×2 (08:54→20:05)
[2024-07-19] MEDS: 0.9 % Sodium Chloride Flush 3 ML SYRINGE IVFLUSH ×3 (08:55→23:46)
--- NOTE | 2024-07-19 11:35 | MHC.CM.PN ---
PER MD ROUNDS, PT NOT EXPECTED TO BE MEDICALLY CLEARED TODAY DCP: HOME NO SERVICES VIA PRIVATE TRANSPORT
[2024-07-19 11:43] VITALS: BP 123/66; PULSE 71; RESP 18; TEMP 36.6; O2SAT 98
[2024-07-19 15:02] LABS: Hematocrit 39.5 % (42.0-52.0); Hemoglobin 13.7 g/dl (14.0-18.0); Mean Corpuscular HGB Conc 34.7 g/dl (31.0-36.0); Mean Corpuscular Hemoglobin 34.2 pg (27.0-33.0); Mean Corpuscular Volume 98.5 fL (80.0-98.0); Mean Platelet Volume 11.2 fL (9.4-12.4); Platelet Count 136 X10*3/uL (160-400); Red Blood Count 4.01 X10*6/uL (4.60-5.80); Red Cell Distribution Width 14.6 % (11.0-16.0); White Blood Count 6.4 X10*3/uL (4.8-10.8)
[2024-07-19 15:03] VITALS: BP 119/60; PULSE 63; RESP 16; TEMP 36.6; O2SAT 94
[2024-07-19 15:04] LABS: INTERNATIONAL NORM RATIO 1.5 (0.9-1.1); Prothrombin Time 17.6 SEC (10.9-12.4)
--- NOTE | 2024-07-19 15:07 | HO.PM.IMPN ---
Subjective Subjective Date of Service: 07/20/24 Interval History: decompensated liver dis Review of Systems has jauandice denies any abd pain or nausea vomitin or abd pain Physical Exam Vital Signs: Vital Signs: Last Vital Signs Temp 97.8 F 07/19/24 15:03 Pulse 63 07/19/24 15:03 Resp 16 07/19/24 15:03 BP 119/60 07/19/24 15:03 Pulse Ox 94 07/19/24 15:03 O2 Del Method Room Air 07/19/24 15:03 BMI result Body Mass Index 39.7 Appearance: Alert.? Oriented X3.? skin-has jaundice cvs: rrr, [id number] . res: clear to auscultation ,no rhonchii or wheezing abd: no rebound or guarding ,nt, bs present. ext pulses present , no cyanosis. neuro: axo3 , nonfocal. Objective Data Active Medications Calcium Carbonate (Calcium Carbonate 750 Mg Tab.Chew) 750 mg PO Q4H PRN PRN Reason: Heartburn Fluticasone Propionate (Fluticasone Propionate Nasal 16 Gm [place]) 1 spray NOSTRIL-B DAILY [facility] Last Admin: 07/19/24 08:58 Dose: Not Given Documented By: CRISS Non-Admin Reason: Patient Refused Magnesium Hydroxide (Milk Of Magnesia 30 Ml Oral.Susp) 30 ml PO DAILY PRN PRN Reason: Constipation Melatonin (Melatonin 3 Mg Tablet) 6 mg PO BEDTIME PRN PRN Reason: Insomnia Metoprolol Tartrate (Metoprolol Tartrate 25 Mg Tablet) 25 mg PO BID [facility]; Protocol Last Admin: 07/19/24 08:54 Dose: 25 mg Documented By: CRISS Ondansetron HCl (Ondansetron Hcl 4 Mg/2 Ml Vial) 4 mg IVPUSH Q8H PRN PRN Reason: Nausea and Vomiting Oxycodone HCl (Oxycodone Hcl Immed Release 5 Mg Tablet) 5 mg PO Q6H PRN PRN Reason: Pain, Severe (Pain Scale 7-10) Sodium Chloride (0.9 % Sodium Chloride Flush 3 Ml Syringe) 3 ml IVFLUSH QSHIFT [facility] Last Admin: 07/19/24 08:55 Dose: 3 ml Documented By: CRISS Labs 07/19/24 14:47 07/20/24 06:12 Labs: Laboratory Results - last 24 hr 07/18/24 07/19/24 07/19/24 12:00 05:31 14:47 MCV 98.5 H MCH 34.2 H MCHC 34.7 RDW 14.6 Plt Count 136 L D MPV 11.2 Absolute Nucleated RBC 0.000 Nucleated RBC % (auto) 0.0 Peritoneal pH 7.51 Peritoneal Tot Protein 1.1 Peritoneal Albumin 0.7 Peritoneal LDH 47 Peritoneal Glucose 151 Hepatitis A IgM Ab Nonreactive Hep Bs Antigen Negative Hep Bs Antibody NONREACTIVE Hep B Core Total Ab Nonreactive Hepatitis C Ab (EIA) Nonreactive Microbiology Microbiology Results: Microbiology 07/18/24 12:00 Gram Stain - Final Abdominal Fluid Routine Culture - Preliminary No growth to date. Anaerobic Culture - Preliminary No growth to date. Assessment and Plan (1) Cirrhosis of liver with ascites: Status: Acute (2) Ascites of liver: Status: Acute Assessment and Plan: 74 year old pleasant male with PMH of liver cirrhosis, atrial fibrillation (on apixaban), type 2 diabetes, hypertension, and morbid obesity here with: Decompensated liver cirrhosis- he has underlying history of liver cirrhosis for which he follows up with the GI team. however there is no mention of ascites in the past acute decompensation due to unclear cause: Workup including AFP, hepatitis screening, duplex ultrasound for portal vein patency ordered. Paracentesis ordered-labs reviewed peritoneal WBC count is 308 but mostly lymphocytic, Ascitis culture prelimary negative UA is negative for protein, has elevated LFTs, echo pending . GI eval-hepatitis A,B,C screen negative , abd us/dupplex :Cirrhotic liver. Patent portal vein. Bidirectional flow seen within the portal vein secondary to portal hypertension. in addition paracentesis shows 300 wbc with 57% lymphocytes ,7% neutrophils only ,preliminary ascitis cultures negative : he is not endorsing new symptoms except jaundice. d/w GI -added MRI with contrast in ruling out HCC even if AFP is normal. he has allergy to ct conrast,checked with mri they do not use conrast similar to ct scan : mri added liver cirrosis : Hyperbilirubinemia - secondary to underlying liver cirrhosis - noted significant elevation in bilirubin from 6.5-11.7 - abdominal CT scan done did not identify any ductal obstruction Jaundice- secondary to hyperbilirubinemia due to liver cirrhosis - monitor also has mild pancytopenia (improving)sec to liver dis,moniter cbc . Atrial fibrillation - rate controlled on metoprolol - hold Eliquis now that his INR is elevated at 1.5 in setting of liver cirrhosis Essential hypertension - BP control is fair - continue with metoprolol ongoing need for stay: Decompensated liver cirrhosis- need lfts monitering and further liver dis workup ,Gi eval. Above was discussed with the patient with the help of internal combustion engine subassembler in detail length he understand and in agreement with the above plan. Quality Stroke Does the patient have a stroke diagnosis?: No VTE Prior VTE?: No VTE Risk Level:: Medical - low VTE Device Contraindication: Treatment Not Indicated VTE Drug Contraindication: Treatment Not Indicated
[2024-07-19 15:15] LABS: Alanine Aminotransferase 117 U/L (0-40); Albumin Level 3.2 g/dL (3.5-5.0); Alkaline Phosphatase 364 U/L (39-117); Anion Gap 17 (12-20); Aspartate Amino Transferase 184 U/L (5-37); Blood Urea Nitrogen 13 mg/dL (9-16); Calcium 8.6 mg/dL (8.4-10.2); Carbon Dioxide 25 mmol/L (22-29); Chloride 104 mmol/L (96-108); Creatinine Clr Calc Pharmacy 107.6; Estimated Glomerular Filt Rate > 60; Glucose Random 113 mg/dL (60-115); Potassium 3.7 mmol/L (3.3-5.1); Sodium 142 mmol/L (135-145); Total Protein 7.6 g/dL (6.5-8.0)
[2024-07-19] MEDS: diphenhydrAMINE HCL 25 MG CAPSULE 50 MG PO (17:00)
[2024-07-19] MEDS: predniSONE 10 MG TABLET 50 MG PO (17:00)
[2024-07-19] MEDS: gadobutroL 10 ML VIAL IVPUSH (18:15)
[2024-07-19 19:44] VITALS: BP 126/58; PULSE 68; RESP 18; TEMP 36.7; O2SAT 97
--- NOTE | 2024-07-19 19:59 | PC.NURSE ---
Imaging called to verify MRI of ABDOMEN report was in and wanted to make sure MD was made aware. This RN tiger messaged Dr. Mcclendon MRI OF ABDOMEN report.
[2024-07-19 23:17] VITALS: BP 108/54; PULSE 66; RESP 18; TEMP 36.4; O2SAT 97
[2024-07-20 03:10] VITALS: BP 100/50; PULSE 60; RESP 18; TEMP 36.3; O2SAT 96
[2024-07-20 07:43] LABS: INTERNATIONAL NORM RATIO 1.6 (0.9-1.1); Prothrombin Time 18.5 SEC (10.9-12.4)
[2024-07-20] MEDS: Fluticasone Propionate Nasal 16 GM SPRAY 1 SPRAY NOSTRIL-B (08:02)
[2024-07-20] MEDS: 0.9 % Sodium Chloride Flush 3 ML SYRINGE IVFLUSH (08:02)
[2024-07-20 08:09] VITALS: BP 105/66; PULSE 68; RESP 18; TEMP 36.4; O2SAT 98
[2024-07-20 08:24] LABS: Alanine Aminotransferase 97 U/L (0-40); Albumin Level 2.7 g/dL (3.5-5.0); Alkaline Phosphatase 293 U/L (39-117); Anion Gap 12 (12-20); Aspartate Amino Transferase 142 U/L (5-37); Bilirubin Total 12.9 mg/dL (0.0-1.0); Blood Urea Nitrogen 15 mg/dL (9-16); Calcium 8.5 mg/dL (8.4-10.2); Carbon Dioxide 25 mmol/L (22-29); Chloride 108 mmol/L (96-108); Creatinine Clr Calc Pharmacy 116.4; Estimated Glomerular Filt Rate > 60; Glucose Random 138 mg/dL (60-115); Potassium 3.6 mmol/L (3.3-5.1); Sodium 141 mmol/L (135-145); Total Protein 6.3 g/dL (6.5-8.0)
[2024-07-20 09:39] VITALS: BP 105/66
[2024-07-20] MEDS: Metoprolol Tartrate 25 MG TABLET PO (09:39)
--- NOTE | 2024-07-20 11:36 | PM.HEMONCCN ---
Subjective - Subjective Chief complaint: hepatic mass Patient: new to practice Consult date: 07/20/24 Primary Care Provider: Mckenzie Bravo MD Prescription Eyeglass Maker Utilized?: Yes - Language Senior Technical Architect Prescription Eyeglass Maker:: Family Member HPI - Consult Narrative Narrative: Slim Regalado is a 74 year old male [place] [facility] [place] He has a history of cirrhosis and ascites and is anticoagulated. An MRI of the lver has shown a 3.9x3.8 cm mass in the liver parenchyma. An alphafetoprotein is pending and cytology of the ascites is also in progress. The mass is a new finding. Review of Systems - Constitutional Reports body ache(s) - ENT Reports dizziness - Cardiovascular Reports fast heart rate - Respiratory Reports dyspnea on exertion - Gastrointestinal Reports diarrhea - Genitourinary Genitourinary: Reports urinary frequency PMFSH Medical History: Medical History (Last Reviewed 07/18/24 @ 13:17 by Esteban Baker RN) Adult general medical exam Elevated LFTs Encounter to establish care Forgetfulness Gallbladder rupture Liver disease Low vitamin D level Murmur, cardiac Obesity (BMI 30-39.9) Right knee pain Right orbital fracture Screening for prostate cancer Thrombocytopenia Family History: Family History (Last Reviewed 07/17/24 @ 21:43 by Alex Mcclendon MD) Father Hypertension Heart attack Mother No problems noted. Sister No problems noted. Surgical History: Surgical History (Last Reviewed 07/18/24 @ 13:17 by Esteban Baker RN) History of cholecystectomy History of surgery on extremity Social History: Social History (Last Reviewed 07/17/24 @ 21:43 by Alex Mcclendon MD) Living Situation History: Household Members: Spouse Housing: Apartment Do you presently have visiting nurse or other home services: No Tobacco History: Patient Tobacco Use Status: Never used Tobacco e-Cigarette/Vaping Use: Never Used Second Hand Smoke Exposure: No Occupation Assessmet: service: No Current occupational status: retired Current occupation: right hand Home Medications and Allergies Current Medications: Current Medications Apixaban (Apixaban 5 Mg Tablet) 5 mg PO BID [facility] Calcium Carbonate (Calcium Carbonate 750 Mg Tab.Chew) 750 mg PO Q4H PRN PRN Reason: Heartburn Fluticasone Propionate (Fluticasone Propionate Nasal 16 Gm [place]) 1 spray NOSTRIL-B DAILY [facility] Last Admin: 07/20/24 08:02 Dose: 1 spray Magnesium Hydroxide (Milk Of Magnesia 30 Ml Oral.Susp) 30 ml PO DAILY PRN PRN Reason: Constipation Melatonin (Melatonin 3 Mg Tablet) 6 mg PO BEDTIME PRN PRN Reason: Insomnia Metoprolol Tartrate (Metoprolol Tartrate 25 Mg Tablet) 25 mg PO BID [facility]; Protocol Last Admin: 07/20/24 09:39 Dose: 25 mg Ondansetron HCl (Ondansetron Hcl 4 Mg/2 Ml Vial) 4 mg IVPUSH Q8H PRN PRN Reason: Nausea and Vomiting Oxycodone HCl (Oxycodone Hcl Immed Release 5 Mg Tablet) 5 mg PO Q6H PRN PRN Reason: Pain, Severe (Pain Scale 7-10) Sodium Chloride (0.9 % Sodium Chloride Flush 3 Ml Syringe) 3 ml IVFLUSH QSHIFT [facility] Last Admin: 07/20/24 08:02 Dose: 3 ml Allergies Allergy/AdvReac Type Severity Reaction Status Date / Time Iodinated Contrast Media Allergy Back Pain Verified 07/17/24 12:11 [Contrast Dye] perflutren [From Definity] AdvReac Intermediate Back Pain Verified 07/17/24 12:11 Physical Exam Vital signs: Vital Signs Temp 97.5 F 07/20/24 08:09 Pulse 68 07/20/24 08:09 Resp 18 07/20/24 08:09 BP 105/66 07/20/24 09:39 Pulse Ox 98 07/20/24 08:09 O2 Del Method Room Air 07/20/24 08:09 Intake & Output 07/19/24 07/20/24 07/20/24 18:59 06:59 18:59 Intake Total 400 / 1400 1000 / 1400 Balance 400 / 1400 1000 / 1400 Intake: Intake, Oral Amount 400 / 1400 1000 / 1400 Other: Breakfast % Eaten 100% Lunch % Eaten 100% Eating (Feeding) Ability Independent Number of Unmeasured Voids 3 1 Urine Bathroom Bathroom Urine Color Yellow Last Bowel Movement 07/19/24 07/20/24 Weight 104.9 kg - Constitutional Present: no acute distress - Routine HEENT Exam Head: Present: atraumatic, normal inspection - Routine Neck Exam Present: supple - Routine Respiratory Exam Present: decreased breath sounds - Routine Cardiovascular Exam Cardiovascular: Present: RRR - Routine Abdominal Exam Present: diminished bowel sounds, nontender - Routine Extremities Exam Present: normal inspection, nontender Hem/Onc Consult Result - Labs CBC & Chem 7: 07/19/24 14:47 07/20/24 06:12 Labs: Short CBC 07/19/24 Range/Units 14:47 WBC 6.4 (4.8-10.8) X10*3/uL Hgb 13.7 L (14.0-18.0) g/dl Hct 39.5 L (42.0-52.0) % Plt Count 136 L D (160-400) X10*3/uL BMP 07/19/24 07/20/24 14:47 06:12 Sodium 142 141 Potassium 3.7 3.6 Chloride 104 108 Carbon Dioxide 25 25 BUN 13 15 Creatinine 0.66 0.61 Calcium 8.6 8.5 Liver Function 07/19/24 07/20/24 Range/Units 14:47 06:12 Total Bilirubin 16.0 H 12.9 H (0.0-1.0) mg/dL AST 184 H 142 H (5-37) U/L ALT 117 H 97 H (0-40) U/L Alkaline Phosphatase 364 H 293 H (39-117) U/L Albumin 3.2 L 2.7 L (3.5-5.0) g/dL Assessment and Plan Patient Active problem list reviewed?: Yes (1) Cirrhosis of liver with ascites Status: Acute Assessment and plan: He has a mass on MRI in the liver parenchyma. We should asait the result of the AFP and cytology. A tissue diagnosis is always preferable. Otherwise proceed as you are doing. - Time Spent With Patient Time Spent with Patient (in minutes): 25
[2024-07-20 11:52] VITALS: BP 126/59; PULSE 65; RESP 18; TEMP 37; O2SAT 98
--- NOTE | 2024-07-20 11:56 | HO.PM.IMPN ---
Subjective Subjective Date of Service: 07/20/24 Interval History: elevated lft's Review of Systems lfts somewhat improving Physical Exam Vital Signs: Vital Signs: Last Vital Signs Temp 98.6 F 07/20/24 11:52 Pulse 65 07/20/24 11:52 Resp 18 07/20/24 11:52 BP 126/59 L 07/20/24 11:52 Pulse Ox 98 07/20/24 11:52 O2 Del Method Room Air 07/20/24 11:52 BMI result Body Mass Index 39.7 Objective Data Active Medications Apixaban (Apixaban 5 Mg Tablet) 5 mg PO BID [facility] Calcium Carbonate (Calcium Carbonate 750 Mg Tab.Chew) 750 mg PO Q4H PRN PRN Reason: Heartburn Fluticasone Propionate (Fluticasone Propionate Nasal 16 Gm [place]) 1 spray NOSTRIL-B DAILY [facility] Last Admin: 07/20/24 08:02 Dose: 1 spray Documented By: DOMINGO Magnesium Hydroxide (Milk Of Magnesia 30 Ml Oral.Susp) 30 ml PO DAILY PRN PRN Reason: Constipation Melatonin (Melatonin 3 Mg Tablet) 6 mg PO BEDTIME PRN PRN Reason: Insomnia Metoprolol Tartrate (Metoprolol Tartrate 25 Mg Tablet) 25 mg PO BID [facility]; Protocol Last Admin: 07/20/24 09:39 Dose: 25 mg Documented By: DOMINGO Ondansetron HCl (Ondansetron Hcl 4 Mg/2 Ml Vial) 4 mg IVPUSH Q8H PRN PRN Reason: Nausea and Vomiting Oxycodone HCl (Oxycodone Hcl Immed Release 5 Mg Tablet) 5 mg PO Q6H PRN PRN Reason: Pain, Severe (Pain Scale 7-10) Sodium Chloride (0.9 % Sodium Chloride Flush 3 Ml Syringe) 3 ml IVFLUSH QSHIFT [facility] Last Admin: 07/20/24 08:02 Dose: 3 ml Documented By: DOMINGO Labs 07/19/24 14:47 07/20/24 06:12 Labs: Laboratory Results - last 24 hr 07/19/24 07/20/24 07/20/24 14:47 06:06 06:12 MCV 98.5 H MCH 34.2 H MCHC 34.7 RDW 14.6 Plt Count 136 L D MPV 11.2 Absolute Nucleated RBC 0.000 Nucleated RBC % (auto) 0.0 PT 17.6 H D 18.5 H INR 1.5 H 1.6 H Anion Gap 17 12 Estim Creat Clear Calc 107.6 116.4 Estimated GFR > 60 > 60 Random Glucose 113 138 H Calcium 8.6 8.5 Total Bilirubin 16.0 H 12.9 H AST 184 H 142 H ALT 117 H 97 H Alkaline Phosphatase 364 H 293 H Total Protein 7.6 6.3 L Albumin 3.2 L 2.7 L EBV Nuclear Antigen Ab Cancelled Microbiology Microbiology Results: Microbiology 07/18/24 12:00 Gram Stain - Final Abdominal Fluid Routine Culture - Final No growth after 2 days Anaerobic Culture - Preliminary No growth to date. Quality Stroke Does the patient have a stroke diagnosis?: No VTE Prior VTE?: No VTE Risk Level:: Medical - low VTE Device Contraindication: Treatment Not Indicated VTE Drug Contraindication: Treatment Not Indicated
--- NOTE | 2024-07-20 15:37 | PM.DS ---
DS: Providers Provider Date of Service: 07/20/24 Date of admission: 07/17/24 20:44 Date of discharge: 07/20/24 Primary care physician: Mckenzie Bravo MD Consults: 07/18/24 05:19 Consult to Gastroenterology Routine Consulting Provider: Alem Clarke Reason for consultation: Decompensated Liver Cirrhosis Has provider been notified: No 07/20/24 09:19 Consult to Hematology / Oncology Routine Consulting Provider: [facility] [place] Oncology/Hematology Reason for consultation: HCC Has provider been notified: No DS: Diagnosis Discharge Diagnosis (1) Cirrhosis of liver with ascites: Status: Acute (2) Ascites of liver: Status: Acute DS: Summary Hospital Course Hospital Course: HPI; 74 year old pleasant male with PMH of cirrhosis, AFib (on apixaban), type 2 diabetes, hypertension, and morbid obesity who presents to the emergency room accompanied by his for evaluation of worsening jaundice. This history was obtained with the assistance of a evp of products & co founder. He was diagnosed with liver cirrhosis more than 15 years ago at which time he was a heavy drinker but has been sober for many years. He currently follows up with Dr. Clarke in the Hepatology clinic and has been fairly stable until now when he noticed acute onset of jaundice, abdominal distension, diarrhea and loss of appetite. He has also noticed that his urine was getting darker. He also reports associated diarrhea and loss of appetite. He denies any associated abdominal pain, nausea, vomiting fevers or chills. Initial blood work done in the ED tonight reveals worsening bilirubin when compared to blood work done 10 days ago on Jul 08 2024 (6.5 vs 11.7). Abdominal CT scan showed cirrhosis with diffuse ascites. The CBD is nondilated and he has no intrahepatic ductal dilatation. His vital signs are failry stable. Admission was requested for further management and Hepatology consultation. Hospital course: 74 year old pleasant male with PMH of liver cirrhosis, atrial fibrillation (on apixaban), type 2 diabetes, hypertension, and morbid obesity here with: Decompensated liver cirrhosis- he has underlying history of liver cirrhosis,elevated bilirubin,mild lft elavated ,ascites:acute decompensation due to unclear cause: Workup including AFP, hepatitis screening, duplex ultrasound for portal vein patency ordered.Paracentesis ordered-labs reviewed peritoneal WBC count is 308 but mostly lymphocytic, Ascitis culture prelimary negative.cytology pending , also paracentesis -only reveal Small volume ascites . UA is negative for protein, has elevated LFTs, echo : ef 55-60% .GI eval-hepatitis A,B,C screen negative , abd us/dupplex :Cirrhotic liver. Patent portal vein. Bidirectional flow seen within the portal vein secondary to portal hypertension. he is not endorsing new symptoms except jaundice.His LFT somewhat improving d/w GI -MRI done for evaluation of decompensated liver disease:Mass in the liver with malignant features which is favored to be hepatocellular carcinoma. The mass causes severe intrahepatic biliary ductal dilatation. There is a thrombus within the right portal vein which could be tumor or bland thrombus. Chronic AFib: Heart rate control, discussed with GI andhem/onc -continue Eliquis. H&H stable around 13.7, platelets are 136. Plan Monitor renal function and LFTs outpatient. GI recommended to add Lasix and spironolactone (Lasix 20 mg daily, spironolactone 25 mg daily added.) Which can be further titrated out patiently needed. Above was reviewed with Oncology, GI: Patient will need outpatient management for possible hepatocellular carcinoma, fluid cytology is pending, AFP pending-patient is to follow-up with oncology and GI out patiently for further management. Above management discussed with the patient and his son in detail length with the help of evp of products & co founder they both understand and in agreement with the above plan, time spent 40 minute. Time Attestation Total time managing care of this patient today: 40 mintues. Discharge Coordination Time (in mins): 40 min Quality: Safe Use of Opioids Does Pt have an Active Cancer Diagnosis on the Problem List?: No Quality: Stroke Does the patient have a stroke diagnosis?: No Physical Exam Vital Signs: Vital Signs: Last Vital Signs Temp 98.6 F 07/20/24 11:52 Pulse 65 07/20/24 11:52 Resp 18 07/20/24 11:52 BP 126/59 L 07/20/24 11:52 Pulse Ox 98 07/20/24 11:52 O2 Del Method Room Air 07/20/24 11:52 BMI result Body Mass Index 39.7 Appearance: Alert.? Oriented X3.? skin-has jaundice cvs: rrr, [id number] . res: clear to auscultation ,no rhonchii or wheezing abd: no rebound or guarding ,nt, bs present. ext pulses present , no cyanosis, no edema . neuro: axo3 , nonfocal. DS: Data Data Completed and Pending Pending studies at discharge: Pending at discharge 07/18/24 09:30 Cytology [PTH] Routine Labs on day of discharge: Laboratory Results - last 24 hr 07/20/24 07/20/24 06:06 06:12 PT 18.5 H INR 1.6 H Sodium 141 Potassium 3.6 Chloride 108 Carbon Dioxide 25 Anion Gap 12 BUN 15 Creatinine 0.61 Estim Creat Clear Calc 116.4 Estimated GFR > 60 Random Glucose 138 H Calcium 8.5 Total Bilirubin 12.9 H AST 142 H ALT 97 H Alkaline Phosphatase 293 H Total Protein 6.3 L Albumin 2.7 L EBV Nuclear Antigen Ab Cancelled Preliminary micro results at discharge 07/18/24 12:00 Anaerobic Culture - Preliminary Abdominal Fluid No growth to date. Imaging Chest x-ray: Radiologist's impression: ITS Impressions Abdomen/Pelvis CT 07/17/24 15:47 IMPRESSION: Cirrhosis with diffuse ascites. Evaluation of the liver is restricted due to lack of IV contrast. The CBD is nondilated no intrahepatic ductal dilatation seen. Mild mesenteric edema secondary to ascites. Fleischner guidelines were followed. Electronically signed by: Beau Gavin MD 07/17/2024 05:11 PM [facility] Discharge Plan Discharge Anticipated Discharge Date/Time: 07/20/24 15:03 Patient Disposition: Home, Self-Care Discharge Diagnosis: HCC Referrals: Rachel Velasco MD [Physician] - 1 Week Alem Clarke MD [Physician] - 1 Week Mckenzie Steiner MD [Primary Care Provider] - 1 Week Discharge Medications: New spironolactone 25 mg Tablet 25 mg PO DAILY Qty: 90 0RF Protocol: Hold for SBP< HOLD for SBP < : 90 furosemide 20 mg Tablet 20 mg PO DAILY Qty: 90 0RF Protocol: Hold for SBP< HOLD for SBP < : 90 Continued metoprolol tartrate 25 mg tablet 25 mg PO BID 30 Days Qty: 60 0RF fluticasone propionate 50 mcg/actuation spray,suspension 1 spray intranasal DAILY 30 Days Qty: 16 0RF Rx Instructions: administer into each nostril Eliquis 5 mg tablet 5 mg PO BID Qty: 60 0RF Discharge Orders: Discharge Order (Routine); Ordered 07/20/24 Ordered By: Chasity Valencia Diet: Advance to usual diet Activity on Discharge: As tolerated Stand Alone Forms: Patient Portal Discharge page Print Language: Cypriot Other Ambulatory Orders: Comprehensive Met. Panel (Routine) Timeframe: 1 Week Facility: [facility] - Location: Laboratory Ordered By: Chasity Valencia Care Plan Goals: patient came with decompensated liver dis/ascitis -extensive workup reveals possible HCC( discussed with GI dr clarke and oncology ) outpatient. added lasix and spirolactone . patient need to follow up with oncology DR velasco's office and Gi dr clarke outpatienty. d/w patient son in detail Health Concerns: as above. Plan of Treatment: as above. Assessment: as above. Discharge Date/Time: 07/20/24 17:13
[2024-07-20 16:00] VITALS: BP 120/60; PULSE 60; RESP 18; TEMP 36.4; O2SAT 97
--- NOTE | 2024-07-20 16:18 | MHC.CM.PN ---
PATIENT MEDICALLY CLEARED FOR DC HOME SELF CARE. FAMILY AT BEDSIDE TO TRANSPORT. RN AWARE.
[2024-07-22 15:49] LABS: CMV DNA PCR Qn Source NOT GIVEN; CMV DNA Qn PCR NOT DETECTED Log IU/mL (NOT DETECTED); CMV DNA Qn Real Time PCR NOT DETECTED (NOT DETECTED)
[2024-07-25 13:49] LABS: Anti Nuclear Antibody Screen NEGATIVE (NEGATIVE)
== END 2024-07-20 17:13 | disposition home or self-care (01) | DRG 433 ==
LOC: HO.ED 17:28 → HO.EDOVER 20:51 → HO.S3 07-18 09:40
PROVIDERS: Internal Medicine Gastroenterology; Physician Assistant Medical; Physician Assistant Surgical; Admitting Provider Internal Medicine; Emergency Provider Emergency Medicine; PCP Internal Medicine; Visit Provider Internal Medicine
DX: K70.31 Alcoholic cirrhosis of liver with ascites (principal); D61.818 Other pancytopenia; K76.6 Portal hypertension; I48.19 Other persistent atrial fibrillation; K75.81 Nonalcoholic steatohepatitis (NASH); Z68.39 Body mass index [BMI] 39.0-39.9, adult; I10 Essential (primary) hypertension; R31.0 Gross hematuria; F10.91 Alcohol use, unspecified, in remission; Z79.01 Long term (current) use of anticoagulants; Z79.51 Long term (current) use of inhaled steroids; Z79.899 Other long term (current) drug therapy
CPT/HCPCS: 36415; 49083; 74176; 74183; 80053; 81001; 82042; 82105; 82248; 82945; 83615; 83690; 83735; 83986; 84157; 85025; 85027; 85610; 85730; 86038; 86664; 86704; 86706; 86709; 86803; 87070; 87073; 87205; 87340; 87497; 88112; 88305; 89051; 93306; 93975; 99285; A9585; J2003; P9047

== ENCOUNTER → 2024-07-17 15:47 | Outpatient (BNV) | payer OTHER, SELFPAY | PROVIDERS: Emergency Provider Emergency Medicine; PCP Internal Medicine; Visit Provider Radiology Diagnostic Radiology | DX: K74.60 Unspecified cirrhosis of liver (principal); R18.8 Other ascites | CPT/HCPCS: 74176 ==

== ENCOUNTER 2024-07-17 20:44 | Outpatient (BNV) | payer OTHER, SELFPAY | END 2024-07-18 07:00 | PROVIDERS: Admitting Provider Internal Medicine; Emergency Provider Emergency Medicine; PCP Internal Medicine; Visit Provider Internal Medicine Cardiovascular Disease | DX: I35.2 Nonrheumatic aortic (valve) stenosis with insufficiency (principal); I35.8 Other nonrheumatic aortic valve disorders; I34.81 Nonrheumatic mitral (valve) annulus calcification | CPT/HCPCS: 93306 ==

== ENCOUNTER 2024-07-17 20:44 | Outpatient (BNV) | payer OTHER, SELFPAY | END 2024-07-18 10:00 | PROVIDERS: Admitting Provider Internal Medicine; Emergency Provider Emergency Medicine; PCP Internal Medicine; Visit Provider Radiology Diagnostic Radiology | DX: R18.8 Other ascites (principal) | CPT/HCPCS: 49083 ==

== ENCOUNTER 2024-07-17 20:44 | Outpatient (BNV) | payer OTHER, SELFPAY | END 2024-07-19 17:46 | PROVIDERS: Admitting Provider Internal Medicine; Emergency Provider Emergency Medicine; PCP Internal Medicine; Visit Provider Radiology Diagnostic Radiology | DX: C22.0 Liver cell carcinoma (principal); I81 Portal vein thrombosis; K83.8 Other specified diseases of biliary tract; K76.6 Portal hypertension | CPT/HCPCS: 74183 ==

== ENCOUNTER → 2024-07-17 20:44 | Outpatient (BNV) | payer OTHER, SELFPAY | PROVIDERS: Admitting Provider Internal Medicine; Emergency Provider Emergency Medicine; PCP Internal Medicine; Visit Provider Internal Medicine Gastroenterology | DX: K74.60 Unspecified cirrhosis of liver (principal); R18.8 Other ascites | CPT/HCPCS: 99222 ==

== ENCOUNTER → 2024-07-17 20:44 | Outpatient (BNV) | payer OTHER, SELFPAY | PROVIDERS: Admitting Provider Internal Medicine; Emergency Provider Emergency Medicine; PCP Internal Medicine; Visit Provider Internal Medicine | DX: K74.60 Unspecified cirrhosis of liver (principal); R18.8 Other ascites | CPT/HCPCS: 99223; 99231; 99232; 99239 ==

== ENCOUNTER → 2024-07-22 13:38 | Outpatient (BNV) | payer OTHER, SELFPAY | PROVIDERS: PCP Internal Medicine; Visit Provider Internal Medicine | DX: C22.0 Liver cell carcinoma (principal) | CPT/HCPCS: 99205; G2211 ==

== ENCOUNTER → 2024-07-23 11:58 | Outpatient (BNVA) | payer OTHER, SELFPAY | PROVIDERS: PCP Internal Medicine; Visit Provider Internal Medicine Gastroenterology ==

== ENCOUNTER 2024-07-25 10:48 | Outpatient (AMB) | payer OTHER, SELFPAY ==
--- NOTE | 2024-07-25 11:11 | A.OFFPC_ITS ---
Vital Signs 07/25/24 11:12 Height 5 ft 4 in Weight 222 lb BMI 38.1 BP 130/74 Blood Pressure Location Lt brachial Position Sitting Pulse 63 Pulse Source Pulse Oximeter Temp 97.1 F Temp Source Skin Pulse Oximetry (%) 98 Oxygen Delivery Method Room Air Intake Visit Reasons: [facility] 07/20 liver Intake Note: Patient is here for hospital discharge follow up. Patient was discharged from [facility] on 07/20/24. Window Air Conditioner Installer Required: Yes Window Air Conditioner Installer Language: Call Or Contact Centre Operator Name: lSim (son) Information Interpreted: non-clinical & clinical (pt decline supervisor cook room service, prefer son to translate.) Radio Time Sales Supervisor: Present Accompanied by: Son Allergies Iodinated Contrast Media [Contrast Dye] Allergy (Verified 07/25/24 12:47) Back Pain perflutren [From Definity] Adverse Reaction (Intermediate, Verified 07/25/24 12:47) Back Pain Medication List - Last Reconciled 07/25/24 by Katherine Will PA-C apixaban (Eliquis) 5 mg PO BID blood sugar diagnostic (Accu-Chek Guide test strips) As directed fluticasone propionate 50 mcg/actuation 1 spray intranasal DAILY 30 days food supplemt, lactose-reduced (Ensure Complete) 1 ea PO TID furosemide 20 mg See Protocol PO DAILY lactulose 10 grams (15 mL) PO DAILY 60 days metoprolol tartrate 25 mg PO BID 30 days spironolactone 25 mg See Protocol PO DAILY Tobacco use date assessed: 07/25/24 Fall risk assessment: No Falls in past year Last assessed Fall Risk: 07/25/24 Dental Screening Dental Screen Date: 07/08/24 [facility] Information Date of Discharge 07/20/24 Discharged From [facility] Interactive Contact Date (Reference documentation from this date) 07/22/24 [facility] Medical History Adult general medical exam Screening for prostate cancer Obesity (BMI 30-39.9) Right orbital fracture Forgetfulness Right knee pain Low vitamin D level Elevated LFTs Thrombocytopenia Murmur, cardiac Liver disease Encounter to establish care Gallbladder rupture Surgical History History of surgery on extremity History of cholecystectomy Family History Father Hypertension Heart attack Mother No problems noted. Sister No problems noted. Social History Household Members: Spouse Housing: Apartment Do you presently have visiting nurse or other home services: No Alcohol intake: former Patient Tobacco Use Status: Never used Tobacco e-Cigarette/Vaping Use: Never Used Second Hand Smoke Exposure: No service: No Current occupational status: retired Current occupation: right hand Gender identity: Male Cognitive needs: No Hearing needs: Yes Vision needs: Yes Questionnaire Thrive Questionnaire Date Thrive assessed: 07/18/24 RUPERTO-7 AMB Questionnaire RUPERTO-7 Date RUPERTO - 7 assessed: 07/08/24 Source: Developed by Drs. Rahul Soriano, Ev Amezcua, Olvin Lyle and colleagues, with an educational damien from [employer]. Physical exam (Primary Care) Vital Signs: Last Vital Signs Temp 97.1 F 07/25/24 11:12 Pulse 63 07/25/24 11:12 BP 130/74 07/25/24 11:12 Pulse Ox 98 07/25/24 11:12 Oxygen Delivery Method Room Air 07/25/24 11:12 Vitals signs have been reviewed. Care Plan Goal for BP management: 130/80 BMI result Body Mass Index 38.1 BMI Assessment/Plan discussion: High BMI High, discussed plan: lifestyle, weight reduction, dietary and physical activity Tobacco/Smoking Status: Tobacco use Status Tobacco use date assessed 07/25/24 07/25/24 11:18 Patient Tobacco Use Status Never used Tobacco 07/25/24 11:18 e-Cigarette/Vaping Use Never Used 07/25/24 11:18 Thrive Assessment: Date of Thrive Assessment Date Thrive assessed 07/18/24 07/25/24 11:18 Coding Level of Care Code TCM High MDM <= 7 Days Complex EM visit Add On G2211 Diagnoses Essential hypertension I10 Controlled type 2 diabetes mellitus without complication, without long-term current use of insulin E11.9 Diabetes mellitus skilled nursing insulin use: without director of cloud services use Diabetes mellitus complication status: without complication Memory loss R41.3 Chronic GERD K21.9 Atrial fibrillation, unspecified type I48.91 Atrial fibrillation type: unspecified Sleep apnea G47.30 Jaundice R17 Ascites of liver R18.8 Cirrhosis of liver with ascites K74.60; R18.8 HCC (hepatocellular carcinoma) C22.0 Liver mass R16.0 Assessment & Plan Assessment & Plan (1) Essential hypertension: Code(s): I10 - Essential (primary) hypertension Category: Medical Plan: Continue metoprolol 25 mg b.i.d.., spironolactone 25 mg daily, furosemide 20 mg daily. Condition is chronic and stable will continue to monitor. (2) Diabetes type 2, controlled: Code(s): E11.9 - Type 2 diabetes mellitus without complications Category: Medical Qualifiers: Diabetes mellitus skilled nursing insulin use: without skilled nursing use Diabetes mellitus complication status: without complication Qualified Code(s): E11.9 - Type 2 diabetes mellitus without complications Plan: Condition is chronic and stable continue to monitor. (3) Memory loss: Code(s): R41.3 - Other amnesia Category: Medical Plan: Condition is chronic and stable continue to monitor. (4) Chronic GERD: Code(s): K21.9 - Gastro-esophageal reflux disease without esophagitis Category: Medical Plan: Condition is chronic and stable continue to monitor. (5) Atrial fibrillation: Code(s): I48.91 - Unspecified atrial fibrillation Category: Medical Qualifiers: Atrial fibrillation type: unspecified Qualified Code(s): I48.91 - Unspecified atrial fibrillation Plan: Patient is currently on Eliquis although was discontinued by Dr. Velasco will confirm this with her. (6) Sleep apnea: Code(s): G47.30 - Sleep apnea, unspecified Category: Medical Plan: Condition is chronic and stable continue to monitor. (7) Jaundice: Code(s): R17 - Unspecified jaundice Category: Medical Plan: Will recheck renal/Liver enzyme's labs. Will continue to monitor. (8) Ascites of liver: Code(s): R18.8 - Other ascites Category: Medical Plan: Will recheck renal/Liver enzyme's labs. Will continue to monitor. (9) Cirrhosis of liver with ascites: Code(s): K74.60 - Unspecified cirrhosis of liver; R18.8 - Other ascites Category: Medical Plan: Will recheck renal/Liver enzyme's labs. Will continue to monitor. (10) HCC (hepatocellular carcinoma): Code(s): C22.0 - Liver cell carcinoma Category: Medical Plan: Patient being followed by oncology and GI. Will continue to monitor. (11) Liver mass: Code(s): R16.0 - Hepatomegaly, not elsewhere classified Category: Medical Plan: Patient being followed by oncology and GI. Will continue to monitor. Plan Plan - Continue monitoring of hepatocellular carcinoma with referral to [facility] for further GI/oncological management. Per son who reported that Dr. Velasco will be referring them. - Repeat blood work for liver and renal function as ordered. - Lasix 20 mg) and spironolactone 25 mg) prescribed for ascites management. Continued - Re-assessment of Eliquis use based on bleeding risk; currently discontinued as advised by Dr. Velasco. Will confirm this. - Referral to HAT BLOCK MAKER services and Meals on Wheels for support at home. - Scheduled follow-up with oncology and GI clinic as coordinated. Orders: Orders Comprehensive Met. Panel Today Z00.00 - Encounter for general adult medical examination without abnormal findings Complete Blood Count Auto Diff Today Z00.00 - Encounter for general adult medical examination without abnormal findings Liver Panel Today Z00.00 - Encounter for general adult medical examination without abnormal findings Referrals Nurse Navigator Referral C22.0 - Liver cell carcinoma, E11.9 - Type 2 diabetes mellitus without complications, G47.30 - Sleep apnea, unspecified, I10 - Essential (primary) hypertension, I48.91 - Unspecified atrial fibrillation, K21.9 - Gastro-esophageal reflux disease without esophagitis, K74.60 - Unspecified cirrhosis of liver, R16.0 - Hepatomegaly, not elsewhere classified, R17 - Unspecified jaundice, R18.8 - Other ascites, R41.3 - Other amnesia Medications: New blood sugar diagnostic (Accu-Chek Guide test strips) As directed 100 ea 3RF food supplemt, lactose-reduced (Ensure Complete) 1 ea PO TID 1,184 mL 1RF Patient Instructions: Patient Instructions - Continue prescribed medications: Lasix and spironolactone. - Avoid excessive sugar and soda; emphasize a balanced diet. - Keep upcoming medical appointments with the oncology and GI specialists. - Be alert for signs of increased jaundice or abdominal pain, and seek care immediately if these occur. - Expect a call from a community navigator regarding Meals on Wheels and HAT BLOCK MAKER services. - Follow up in clinic in 2-4 weeks for reassessment. - Maintain consistent hydration and monitor for any unusual symptoms. Scribe Plan - Not visible on output: Patient presents to the office for a TCM visit. Date of admission:07/17/24 Date of discharge:07/20/24 This is a Follow-up from admission at [facility] HPI: 74 year old pleasant male with PMH of liver cirrhosis, atrial fibrillation, type 2 diabetes, hypertension, and morbid obesity who presented to the emergency department on 07/17/2024 due to worsening job this. He was diagnosed with liver cirrhosis more than 15 years ago at which time he was a heavy drinker but has been sober for many years. He currently follows up with Dr. Walsh in the Hepatology Clinic and had been fairly stable up until he had noticed acute onset of jaundice, abdominal distention, diarrhea and loss of appetite. He also noticed his urine was darker in color. Therefore he went to the emergency department with his and his son. Hospital Course/Discharge Summary: Initial blood work done in the ED revealed worsening bilirubin when compared to blood work done on Jul 08 2024 (6.5 vs 11.7). Abdominal CT scan showed cirrhosis with diffuse ascites. The CBD was nondilated and there was no intrahepatic ductal dilatation. His vital signs are fairly stable. Admission was requested for further management and Hepatology consultation. While admitted patient had below performed for labs, imaging and had a consult with GI and Oncology. Decompensated liver cirrhosis- he has underlying history of liver cirrhosis,elevated bilirubin,mild lft elavated ,ascites:acute decompensation due to unclear cause: Workup including AFP, hepatitis screening, duplex ultrasound for portal vein patency ordered.Paracentesis ordered-labs reviewed peritoneal WBC count is 308 but mostly lymphocytic, Ascitis culture prelimary negative.cytology pending , also paracentesis -only reveal Small volume ascites . UA is negative for protein, has elevated LFTs, echo : ef 55-60% .GI eval- hepatitis A,B,C screen negative , abd us/dupplex :Cirrhotic liver. Patent portal vein. Bidirectional flow seen within the portal vein secondary to portal hypertension. he is not endorsing new symptoms except jaundice.His LFT somewhat improving d/w GI -MRI done for evaluation of decompensated liver disease:Mass in the liver with malignant features which is favored to be hepatocellular carcinoma. The mass causes severe intrahepatic biliary ductal dilatation. There is a thrombus within the right portal vein which could be tumor or bland thrombus. Chronic AFib: Heart rate control, discussed with GI andhem/onc -continue Eliquis. H&H was stable around 13.7 and platelets were 136 Follow-up Plan: They recommended for outpatient that patient have his renal function and LFTs monitored. Along with follow-up with GI and Oncology. They started the patient on new medications which included Lasix 20 mg daily and spironolactone 25 mg daily. Patient will need outpatient management for possible hepatocellular carcinoma, fluid cytology is pending, AFP pending-patient is to follow-up with oncology and GI out patiently for further management. Discharged to/Current Location: Home Lives with: Diagnosis: 1. Cirrhosis of liver with ascites 2. Ascites of liver 3. Possible hepatocellular carcinoma Procedures performed:see above in Discharge Summary New medications: Lasix 20 mg daily, spironolactone 25 mg daily Discontinued medications: Patient reports with son at bedside that he seen Oncology this week and they discontinued the Eliquis will confirm this with Dr. Velasco. Change medications/dosing: Patient with son at bedside reports that Oncology/Dr. Velasco discontinued his Eliquis. Will confirm this. Pending labs: See above for pending lab in discharge summary Pending diagnostic test: See above for pending diagnostic test in discharge summary Any Follow-up Labs required? See above for follow-up labs required in discharge summary Any Follow-up Diagnostic test required? See above for diagnostic tests required in discharge summary How are you feeling? A bit improved but still has no appetite. Family feels as he is spaced out or lost Are you in any pain or discomfort? Pt denies Do you have any questions about your condition or discharge instructions? Yes all questions answered Were you able to get your medications filled? yes Do you have any questions about your medications? No question Any referrals required? already in place Were you able to schedule your follow-up appointment? yes If home health was ordered, have they contact you? none was ordered Any outpatient services, if so, are you scheduled? none were ordered Are there any additional resources like transportation you might need during her recovery? yes - VNA? No, son does not feel as they need a VNA at this time - HAT BLOCK MAKER? yes, son does feel that he could use a HAT BLOCK MAKER or the son can actually help take care of him as well as he is already doing and bringing him to appointment - Meals on wheels? yes, son feels like the patient can benefit from meals on wheels especially if they bring him meals that the patient can eat Educational need/resources: What support system do you have? Yes Son and whom he lives with . Social History - Lives with his at home; no senior living residency. - Son is actively involved in the patient's care. - Former heavy alcohol use but currently abstinent. - No mention of tobacco or other substance use. - Dietary intake affected; instructions received to avoid excessive sugar and soda. - Use of services like Meals on Wheels is being considered. Review of Systems - Constitutional: Denies fever or chills. - Gastrointestinal: Reports loss of appetite. - Neurological: Family reports confusion or seeming spaced out. Physical Exam Appearance: Alert. Oriented X3. No acute distress. Head: Normal external exam. Normocephalic. Atraumatic. Eyes: Pupils are equal, round, and reactive to light. Extraocular movements intact. Conjunctiva and sclera normal. Eyelids normal. Ears: External auditory canal normal. Tympanic membranes normal. Throat: Pharynx normal. Uvula midline. Moist mucous membranes. Neck: Normal inspection. Neck supple. Full range of motion. No adenopathy. Thyroid Normal. No meningeal signs. No neck mass noted. Cardiovascular: Normal heart rate and rhythm. Heart sound normal. Murmur noted. Pulses normal throughout. Respiratory: No respiratory distress. Painless inspiration. Breath sounds normal. No wheezes/rales/rhonchi noted. Chest nontender. No accessory muscle usage noted or decreased air movement noted. Abdomen: Soft and nontender. Distended. Bowel sounds normal in all 4 quadrants. Back: No costovertebral angle tenderness. Full range of motion noted. Skin: Skin warm and dry. Normal skin color. Normal skin turgor. No rashes/le sions/lacerations noted. Mild lower extremity edema noted. Extremities: Mild + 2 lower extremity edema noted. No calf tenderness is noted. Extremities exhibit normal range of motion. Extremities nontender. Neuro: Oriented X 3. No motor deficit. No sensory deficit. Reflexes normal. Results - Labs: Bilirubin levels increased from 6.5 to 11.7. - Imaging: MRI reveals a liver mass suggestive of hepatocellular carcinoma. - Culture: Ascites cultures negative for infection. Plan - Continue monitoring of hepatocellular carcinoma with referral to [facility] for further GI/oncological management. Per son who reported that Dr. Velasco will be referring them. - Repeat blood work for liver and renal function as ordered. - Lasix 20 mg) and spironolactone 25 mg) prescribed for ascites management. Continued - Re-assessment of Eliquis use based on bleeding risk; currently discontinued as advised by Dr. Velasco. Will confirm this. - Referral to HAT BLOCK MAKER services and Meals on Wheels for support at home. - Scheduled follow-up with oncology and GI clinic as coordinated. Patient was informed and verbally consented to the use of an ambient scribe for clinic note documentation during this visit. Discussion Notes We discussed the patient?s primary diagnosis of hepatocellular carcinoma as indicated by recent imaging. The risk of bleeding associated with Eliquis was noted, leading to its temporary discontinuation. The patient will continue with current diuretic therapy for ascites. I advised the family on the need for further oncological evaluation by Dr. Golden. We covered the importance of avoiding hepatotoxic substances and maintaining suitable dietary habits. I recommended enrolling in services such as Meals on Wheels to assist with nutritional needs and a HAT BLOCK MAKER service to support daily living activities. Follow- up appointments were emphasized to monitor the patient?s clinical status and ensure continuity of care. Patient Instructions - Continue prescribed medications: Lasix and spironolactone. - Avoid excessive sugar and soda; emphasize a balanced diet. - Keep upcoming medical appointments with the oncology and GI specialists. - Be alert for signs of increased jaundice or abdominal pain, and seek care immediately if these occur. - Expect a call from a community navigator regarding Meals on Wheels and HAT BLOCK MAKER services. - Follow up in clinic in 2-4 weeks for reassessment. - Maintain consistent hydration and monitor for any unusual symptoms.
[2024-07-25 11:12] VITALS: BP 130/74; PULSE 63; TEMP 36.2; O2SAT 98; BMI 38.1
--- OUTSIDE RECORDS SUMMARY | 2024-07-25 11:28 | XMS_ITS | Clinical Summary ---
Author Organization [facility] Address [address] [place] [address] Care Team Providers Care Batchmaker Name Role Phone Unavailable Primary Care Provider [...] to complete this topic [address] [place] [id number]
--- OUTSIDE RECORDS SUMMARY | 2024-07-25 11:28 | XMS_ITS | Patient Health Record ---
Author Organization [facility] Address [address] [place], [place] [id number] Care Team Providers Care Auto Inspection Specialist Name Role Phone Ana Rosa Olivares Primary Care Provider Ollie Jane Unavailable [phone] Allergies No Known Allergies Reason For Referral No Information Medications Medication SIG (Take, Route, Frequency, Duration) Notes Start Date End Date Status Clotrimazole-Betamethasone 1-0.05 % 1 application Externally Twice a day Active Problems Problem Type SNOMED Code ICD Code Onset Dates Problem Status W/U Status Risk Notes Problem Benign neoplasm of colon (75663545) Benign neoplasm of colon, unspecified (D12.6) Active confirmed migrated_ 6926411 Problem Acute alcoholic liver disease (8409888) Alcoholic hepatitis without ascites (K70.10) Active confirmed migrated_ 4781399 Problem Alcoholic cirrhosis (912659489) Alcoholic cirrhosis of liver without ascites (K70.30) Active confirmed migrated_ 5130097 Problem Chronic hepatic failure (524546742) Chronic hepatic failure without coma (K72.10) Active confirmed migrated_ 4269755 Problem Chest pain (25446144) Chest pain, unspecified (R07.9) Active confirmed migrated_ 9950656 Problem History of polyp of colon (088189362) Personal history of colonic polyps (Z86.010) Active confirmed migrated_ 0723032 Plan Of Treatment Pending Test Test Name Order Date Ultrasound : Abdomen 12/12/2019 EGD 02/22/2021 Colonoscopy 02/22/2021 Insurance Providers Payer Name Payer Address Payer Phone Subscriber Number Group Number Insured Name Patient Relationship to Insured Coverage Start Date Coverage End Date MEDICARE [employer] [address] [place] [phone] [id number] CAREY DU Self - patient is the insured [facility] [address] [place] [address] [phone] [id number] CAREY DU Self - patient is the insured MEDICARE [employer] [address] [place] [phone] [id number] CAREY DU Self - patient is the insured Medical (General) History Surgical History Surgery Date(Month/Year)
== END 2024-07-25 11:43 | disposition home or self-care (01) ==
PROVIDERS: PCP Internal Medicine; Visit Provider Physician Assistant Medical
DX: E11.9 Type 2 diabetes mellitus without complications (principal); I48.91 Unspecified atrial fibrillation; K74.60 Unspecified cirrhosis of liver; C22.0 Liver cell carcinoma; I10 Essential (primary) hypertension; R41.3 Other amnesia; K21.9 Gastro-esophageal reflux disease without esophagitis; G47.30 Sleep apnea, unspecified; R17 Unspecified jaundice; R18.8 Other ascites; R16.0 Hepatomegaly, not elsewhere classified

== ENCOUNTER → 2024-07-25 10:48 | Outpatient (BNVA) | payer OTHER, SELFPAY | PROVIDERS: PCP Internal Medicine; Visit Provider Physician Assistant Medical | DX: I10 Essential (primary) hypertension (principal); E11.9 Type 2 diabetes mellitus without complications; R41.3 Other amnesia; K21.9 Gastro-esophageal reflux disease without esophagitis; I48.91 Unspecified atrial fibrillation; G47.30 Sleep apnea, unspecified; R18.8 Other ascites; K74.60 Unspecified cirrhosis of liver; R16.0 Hepatomegaly, not elsewhere classified | CPT/HCPCS: 99496 ==

== ENCOUNTER 2024-07-26 10:28 | Outpatient (REF) | payer OTHER, SELFPAY ==
--- OUTSIDE RECORDS SUMMARY | 2024-07-26 11:19 | XMS_ITS | Patient Health Record ---
Author Organization [facility] Address [address] [place], [place] [id number] Care Team Providers Care Fretted Instrument Maker Hand Name Role Phone Ana Rosa Olivares Primary Care Provider Ollie Jane Unavailable [phone] Allergies No Known Allergies Reason For Referral No Information Medications Medication SIG (Take, Route, Frequency, Duration) Notes Start Date End Date Status Clotrimazole-Betamethasone 1-0.05 % 1 application Externally Twice a day Active Problems Problem Type SNOMED Code ICD Code Onset Dates Problem Status W/U Status Risk Notes Problem Benign neoplasm of colon (24832379) Benign neoplasm of colon, unspecified (D12.6) Active confirmed migrated_ 7224961 Problem Acute alcoholic liver disease (5686858) Alcoholic hepatitis without ascites (K70.10) Active confirmed migrated_ 4170724 Problem Alcoholic cirrhosis (534898751) Alcoholic cirrhosis of liver without ascites (K70.30) Active confirmed migrated_ 7689189 Problem Chronic hepatic failure (804332945) Chronic hepatic failure without coma (K72.10) Active confirmed migrated_ 4232212 Problem Chest pain (40956414) Chest pain, unspecified (R07.9) Active confirmed migrated_ 8394038 Problem History of polyp of colon (342199309) Personal history of colonic polyps (Z86.010) Active confirmed migrated_ 2582076 Plan Of Treatment Pending Test Test Name Order Date Ultrasound : Abdomen 12/12/2019 EGD 02/22/2021 Colonoscopy 02/22/2021 Insurance Providers Payer Name Payer Address Payer Phone Subscriber Number Group Number Insured Name Patient Relationship to Insured Coverage Start Date Coverage End Date MEDICARE [employer] [address] [place] [phone] [id number] CAREY DU Self - patient is the insured [facility] [address] [place] [address] [id number] CAREY DU Self - patient is the insured MEDICARE [employer] [address] [place] [phone] [id number] CAREY DU Self - patient is the insured Medical (General) History Surgical History Surgery Date(Month/Year)
--- OUTSIDE RECORDS SUMMARY | 2024-07-26 11:19 | XMS_ITS | Clinical Summary ---
Author Organization [facility] Address [address] [place] [address] Care Team Providers Care Addiction Counselor Name Role Phone Unavailable Primary Care Provider [...] to complete this topic [address] [place] [id number]
[2024-07-27 10:04] LABS: Carbohydrate Antigen 19-9 151 U/mL (<34)
== END 2024-07-26 10:29 | disposition home or self-care (01) ==
LOC: HO.LAB 10:28
PROVIDERS: Internal Medicine Gastroenterology; PCP Internal Medicine; Visit Provider Physician Assistant Medical
DX: R16.0 Hepatomegaly, not elsewhere classified (principal)
CPT/HCPCS: 36415; 86301